=== PATIENT | female | born 1950 | race Caucasian/White ===

== ENCOUNTER → 2016-10-30 | Outpatient (CLI) | payer BC ==
[~2016-10-30] MED LIST: ALBUAER19 INH; ASCA500 PO; B-CO1CAP3 PO; BECL1AER5; CALC1TAB9 PO; CALC500T25 PO; CATAPLEX PO; CETI10TA10 PO; DIGE1CAP10 PO; MAGN250T8 PO; MISCCAP80 PO; NUTR50CA PO; PTDOPS OPB; SELE1TAB10 PO; SPEC1TAB PO; TBRDOPO OPR; VTMD400 PO; [UNRECOGNIZED DRUG - OTHER] PO; [UNRECOGNIZED DRUG - OTHER] PO; [UNRECOGNIZED DRUG - OTHER] PO
== END | disposition home or self-care (01) ==
LOC: C.PAPS 08:06
PROVIDERS: ATTEND Obstetrics & Gynecology
DX: N95.8 Other specified menopausal and perimenopausal disorders (principal); Z01.419 Encounter for gynecological examination (general) (routine) without abnormal findings

== ENCOUNTER → 2017-03-10 | Outpatient (CLI) | payer BC ==
--- NOTE | 2017-03-11 02:49 | PAP/PSG TECHNICIAN REPORT ---
[facility] Cardiac Nurse Specialist Polysomnogram Report Study name: None Report date: 03/11/2017 Study date: 03/10/2017 Referring Physician: Heather Castro DO Name: FRANKLYN TIWARI Interpreting Physician: Abdullahi Peters M.D. Date of : 1950 Cardiac Nurse Specialist: Mara Salvador [facility]. Sex: Female Age: 66 StudyType: PSG Weight: 187 lbs Height: 66 years, Height 5' 9" Neck Circum: BMI: 27.61 Medications: Vagifem, [place] Thyroid, Citracal/Vitamin D, Vitamin B-12, Vitamin B Patient History 66 yr. old female here for a new titration sleep study. Patient had a HST. Parameters Monitored NPSG: E1-M2, E2-M1, Fp1-M2, Fp2-M1, F3-M2, F4-M2, F4-M1, C3-M2, C4-M2, C4-M1, O1-M2, O2-M2, O2-M1, T3-M2, T4-M1, P3-M2, P4-M1, CHIN1, CHIN2, HR, EKG, Legs, PFLOW, SNOR, FLOW, CFLOW, Tidal Volume, THOR, ABDO, SpO2, PLTH, CPRESS, ETCO2 Wave, ETCO2, pH Sleep Architecture Sleep Stages Time at Lights Off 10:42:21 PM STAGES Time (min.) TST (%) Time at Lights On 2:47:21 AM Wake 77.0 -- Total Recording Time (TRT) 244.50 min. N1 22.5 13 Total Sleep Period (TSP) 230.5 min. N2 82.0 49 Total Sleep Time (TST) 167.5min. N3 42.0 25 Awake Time 77.0 min. REM 21.0 13 Wake after Sleep Onset 63.5 min. Sleep Efficiency (SE) 69 % Sleep Onset Latency (DAMARI) 14.0 min. Number of Stage 1 Shifts None Awakenings 6 Stage Changes 35 Number of REM periods 1 REM 21.0 13 REM Latency 104.5 min. NREM 146.5 87 Body Position Analysis Supine Right Left Side Prone Vertical Total Sleep Time (min.) 0.0 120.0 47.5 167.50 0.0 0.0 Total Sleep Time (%) 0% 72% 28% 100 0% N/A% Total Sleep Time REM (min.) 0.0 21.0 0.0 None 0.0 0.0 Total Sleep Time NREM (min.) 0.0 99.0 47.5 None 0.0 0.0 Intermittent Wake (min.) 0.0 41.8 35.2 None 0.0 0.0 Total Sleep Period (%) 0% None None None None None Arousals Myoclonus (PLM) * Events Count Index Events Count Index Spontaneous 6 2 Events Awake (PLMW) 83 64.7 Respiratory 0 0.0 Events Asleep w/ Arousal (PLMA) 3 1.1 PLM 2 1 Events Asleep w/o Arousal (PLMS) 6 2.1 Snoring 0 0 Total Asleep 9 3.2 Total 8 3 Total 92 23 Respiratory Analysis * CA OA MA CH H RERA Total Count 0 0 0 0 5 0 5 Index 0.0 0.0 0.0 0 1.8 0 1.8 Mean Duration 0.0 0.0 0.0 0.00 40.5 0.0 40.5 Longest Duration 0.0 0.0 0.0 0.00 0.0 0.0 55.7 Respiratory Event Summary Total Supine ~Supine Right Left Prone REM NREM Apneas Count 0 N/A 0 0 0 N/A 0 0 Index 0.0 N/A 0 0.0 0.0 N/A 0 0 Hypopneas (4% Desat) Count 5 N/A 5 4 1 N/A 3 2 Index 1.8 N/A 2 2.0 1.3 N/A 8.6 0.8 Apneas & All Hypopneas Count 5 N/A 5 4 1 N/A 3 2 Index 1.8 N/A 2 2 1 N/A 8.6 0.8 Respiratory Events (Centrifugal Supervisor+All Hyp+RERA) Count 5 N/A 5 4 1 N/A 3 2 Index 1.8 N/A 2 2.0 1.3 N/A 8.6 0.8 Respiratory Related Arousal Count 0 N/A 0 0 0 N/A 0 0 Index 0.0 N/A 0 0 0 N/A 0 0 Snoring Analysis Supine Right Left Prone REM NREM Total Snore duration 0.1 min Snores count N/A 3 0 N/A 1 2 3 Snore mean duration 1.8 Sec Snores index N/A 2 0 N/A 2.9 0.8 1.1 TST with snoring (%) 0.1% Desaturation Event Summary: Minimum %SpO2 Event Count Mean/Min/Max Duration(sec.) Desaturation Index % Time In Bed > 90 7 37.0 / 22.8 / 50.0 2.6 67.7 86 - 90 2 41.0 / 32.0 / 50.0 1.6 32.2 81 - 85 0 N/A 0.0 0.0 76 - 80 0 N/A 0.0 0.0 71 - 75 0 N/A 0.0 0.0 66 - 70 0 N/A 0.0 0.0 61 - 65 0 N/A 0.0 0.1 56 - 60 0 N/A 0.0 0.0 51 - 55 0 N/A 0.0 0.0 < 50 0 N/A 0.0 0.0 Total REM NREM Awake <50% 0.0 min. 0.0 min. 0.0 min. 0.0 min. 51 - 60% 0.0 min. 0.0 min. 0.0 min. 0.0 min. 61 - 70% 0.2 min. 0.0 min. 0.0 min. 0.2 min. 71 - 80% 0.0 min. 0.0 min. 0.0 min. 0.0 min. 81 - 90% 76.9 min. 11.0 min. 58.8 min. 7.1 min. 91 - 100% 161.8 min. 10.0 min. 87.2 min. 64.5 min. Average 91 91 91 92 Minimum SpO2 62 87 88 62 Desaturation Event Index 1.7 11.4 0.8 0.8 # Desat. Events below 89% 2 2 N/A 0 Time(%) with Saturation below 89% 1.2 0.8 0.2 0.2 Time(min.) with Saturation below 89% 2.9 2.0 0.5 0.4 Time (mins) REM (mins) NREM (mins) % of TST SpO2 Below 90% 5 4 N1 11.3 SpO2 Below 88% 1 0 0 0 Heart Rate Analysis Min (bpm) Max (bpm) Average (bpm) Awake 57 86 70 NREM 55 93 66 REM 60 75 70 Overall 55 93 66 Supplemental O2 Values Minimum O2 level: None Value Start Time End Time Cardiac Nurse Specialist Comments Therapy Event: Therapy (cm H20) 4 5 Total Time at Pressure (min.) 135.4 109.1 TST at Pressure (min.) 109.4 58.1 # Periods 1 1 Sleep Onset (min.) 14.0 0.0 REM Onset (min.) 118.5 0.0 Sleep Efficiency % 80 53 Wakefulness (%) 19.2 46.8 Wakefulness (min.) 26.0 51.0 NREM 1 (%) 9.2 9.2 NREM 1 (min.) 12.5 10.0 NREM 2 (%) 34.0 33.0 NREM 2 (min.) 46.0 36.0 NREM 3 (%) 25.1 7.3 NREM 3 (min.) 34.0 8.0 REM (%) 12.5 3.7 REM (min.) 16.9 4.1 # Arousals 7 1 Arousal Index 3.8 1.0 # Snore 1 2 Snore Index 0.5 2.1 AHI 2.2 1.0 AHI Supine N/A N/A AHI Non-Supine 2.2 1.0 NREM AHI 0.6 1.1 REM AHI 10.6 0.0 RDI 2.2 1.0 # Obstructive 0 0 # Central Ap 0 0 # Mixed 0 0 # Hypopneas 4 1 RERAS 0 0 Total Respiratory Events 4 1 Time Below SpO2 89.00% (min.) 2.0 0.5 Mean NREM SpO2 (%) 91 90 Mean REM SpO2 (%) 90 93 Mean Sleep SpO2 (%) 91 91 Min NREM SpO2 (%) 89 88 Min REM SpO2 (%) 87 90 Position Supine (min.) 0.0 0.0 Position Non-supine (min.) 109.4 58.1 LM Index Sleep 3.3 3.1 LM Index NREM 3.9 2.2 LM Index REM 0.0 14.7 Mean Heart Rate (bpm) 70 60 Min Heart Rate (bpm) 60 55
--- NOTE | 2017-03-11 06:30 | PAP/PSG TECHNICIAN REPORT ---
[facility] Outside Barrel Lathe Operator Polysomnogram Report Study name: None Report date: 03/11/2017 Study date: 03/10/2017 Referring Physician: Heather Castro DO Name: FRANKLYN ANTHONY Interpreting Physician: Venkata Pope M.D. Date of : 1950 Outside Barrel Lathe Operator: ELVIN Portillo. Sex: Female Age: 66 StudyType: PSG Weight: 187 lbs Height: 66 years, Height 5' 9" Neck Circum: BMI: 27.61 Medications: Vagifem, [place] Thyroid, Citracal/Vitamin D, Vitamin B-12, Vitamin B Patient History 66 yr. old female here for a new titration sleep study. Patient had a HST. Results are not available at this time. Patient has a follow up with Dr. Pope March 25, 2017. Parameters Monitored NPSG: E1-M2, E2-M1, Fp1-M2, Fp2-M1, F3-M2, F4-M2, F4-M1, C3-M2, C4-M2, C4-M1, O1-M2, O2-M2, O2-M1, T3-M2, T4-M1, P3-M2, P4-M1, CHIN1, CHIN2, HR, EKG, Legs, PFLOW, SNOR, FLOW, CFLOW, Tidal Volume, THOR, ABDO, SpO2, PLTH, CPRESS, ETCO2 Wave, ETCO2, pH Sleep Architecture Sleep Stages Time at Lights Off 10:42:21 PM STAGES Time (min.) TST (%) Time at Lights On 5:59:21 AM Wake 115.0 -- Total Recording Time (TRT) 436.00 min. N1 48.0 15 Total Sleep Period (TSP) 422.0 min. N2 174.5 54 Total Sleep Time (TST) 321.0min. N3 46.5 14 Awake Time 115.0 min. REM 52.0 16 Wake after Sleep Onset 102.0 min. Sleep Efficiency (SE) 74 % Sleep Onset Latency (DAMARI) 14.0 min. Number of Stage 1 Shifts None Awakenings 12 Stage Changes 53 Number of REM periods 2 REM 52.0 16 REM Latency 104.5 min. NREM 269.0 84 Body Position Analysis Supine Right Left Side Prone Vertical Total Sleep Time (min.) 0.0 175.5 145.5 321.00 0.0 0.0 Total Sleep Time (%) 0% 55% 45% 100 0% N/A% Total Sleep Time REM (min.) 0.0 21.0 31.0 None 0.0 0.0 Total Sleep Time NREM (min.) 0.0 154.5 114.5 None 0.0 0.0 Intermittent Wake (min.) 0.0 55.5 59.5 None 0.0 0.0 Total Sleep Period (%) 0% None None None None None Arousals Myoclonus (PLM) * Events Count Index Events Count Index Spontaneous 7 1 Events Awake (PLMW) 126 65.7 Respiratory 0 0.0 Events Asleep w/ Arousal (PLMA) 5 0.9 PLM 4 1 Events Asleep w/o Arousal (PLMS) 8 1.5 Snoring 1 0 Total Asleep 13 2.4 Total 12 2 Total 139 19 Respiratory Analysis * CA OA MA CH H RERA Total Count 0 0 0 0 9 0 9 Index 0.0 0.0 0.0 0 1.7 0 1.7 Mean Duration 0.0 0.0 0.0 0.00 41.7 0.0 41.7 Longest Duration 0.0 0.0 0.0 0.00 0.0 0.0 55.7 Respiratory Event Summary Total Supine ~Supine Right Left Prone REM NREM Apneas Count 0 N/A 0 0 0 N/A 0 0 Index 0.0 N/A 0 0.0 0.0 N/A 0 0 Hypopneas (4% Desat) Count 9 N/A 9 7 2 N/A 4 5 Index 1.7 N/A 2 2.4 0.8 N/A 4.6 1.1 Apneas & All Hypopneas Count 9 N/A 9 7 2 N/A 4 5 Index 1.7 N/A 2 2 1 N/A 4.6 1.1 Respiratory Events (Impression Printer+All Hyp+RERA) Count 9 N/A 9 7 2 N/A 4 5 Index 1.7 N/A 2 2.4 0.8 N/A 4.6 1.1 Respiratory Related Arousal Count 0 N/A 0 0 0 N/A 0 0 Index 0.0 N/A 0 0 0 N/A 0 0 Snoring Analysis Supine Right Left Prone REM NREM Total Snore duration 0.4 min Snores count N/A 4 4 N/A 3 5 8 Snore mean duration 3.3 Sec Snores index N/A 1 2 N/A 3.5 1.1 1.5 TST with snoring (%) 0.1% Desaturation Event Summary: Minimum %SpO2 Event Count Mean/Min/Max Duration(sec.) Desaturation Index % Time In Bed > 90 15 43.3 / 21.3 / 60.0 3.5 60.8 86 - 90 2 41.0 / 32.0 / 50.0 0.7 39.0 81 - 85 0 N/A 0.0 0.0 76 - 80 0 N/A 0.0 0.0 71 - 75 0 N/A 0.0 0.0 66 - 70 0 N/A 0.0 0.0 61 - 65 0 N/A 0.0 0.0 56 - 60 0 N/A 0.0 0.0 51 - 55 0 N/A 0.0 0.0 < 50 0 N/A 0.0 0.0 Total REM NREM Awake <50% 0.0 min. 0.0 min. 0.0 min. 0.0 min. 51 - 60% 0.0 min. 0.0 min. 0.0 min. 0.0 min. 61 - 70% 0.2 min. 0.0 min. 0.0 min. 0.2 min. 71 - 80% 0.1 min. 0.0 min. 0.0 min. 0.1 min. 81 - 90% 165.5 min. 22.8 min. 129.8 min. 12.9 min. 91 - 100% 257.6 min. 29.2 min. 139.2 min. 89.3 min. Average 91 91 91 92 Minimum SpO2 62 87 88 62 Desaturation Event Index 2.1 8.1 1.3 1.6 # Desat. Events below 89% 4 2 2 0 Time(%) with Saturation below 89% 1.5 0.8 0.5 0.2 Time(min.) with Saturation below 89% 6.2 3.2 1.9 1.0 Time (mins) REM (mins) NREM (mins) % of TST SpO2 Below 90% 11 6 N5 13.1 SpO2 Below 88% 3 0 0 0 Heart Rate Analysis Min (bpm) Max (bpm) Average (bpm) Awake 55 214 70 NREM 54 93 63 REM 54 81 64 Overall 54 93 63 Supplemental O2 Values Minimum O2 level: None Value Start Time End Time Outside Barrel Lathe Operator Comments MS. Anthony slept in the right and left positions. No cardiac arrhythmia or PLMs noted. No bruxism noted. CPAP was initiated at +4 CMH2O room air and up-titrated to an optimal level of +6 CMH2O Cflex 2 , which nearly eliminated all respiratory events and snoring. A Medium Eson 2 by Lior was used during titration. MS. Anthony awoke to use the restroom two times by during the night. MS. Anthony stated, I am glad I brought my own pillows, or I really would not have slept. The final report will be interpreted and signed by a sleep physician. The completed physician report will then be placed in the patient medical record. Therapy Event: Therapy (cm H20) 4 5 6 Total Time at Pressure (min.) 135.4 275.1 25.5 TST at Pressure (min.) 109.4 187.1 24.5 # Periods 1 1 1 Sleep Onset (min.) 14.0 0.0 0.0 REM Onset (min.) 118.5 0.0 N/A Sleep Efficiency % 80 68 96 Wakefulness (%) 19.2 32.0 3.9 Wakefulness (min.) 26.0 88.0 1.0 NREM 1 (%) 9.2 12.2 7.8 NREM 1 (min.) 12.5 33.5 2.0 NREM 2 (%) 34.0 38.5 88.2 NREM 2 (min.) 46.0 106.0 22.5 NREM 3 (%) 25.1 4.5 0.0 NREM 3 (min.) 34.0 12.5 0.0 REM (%) 12.5 12.8 0.0 REM (min.) 16.9 35.1 0.0 # Arousals 7 5 0 Arousal Index 3.8 1.6 0.0 # Snore 1 6 1 Snore Index 0.5 1.9 2.4 AHI 2.2 1.6 0.0 AHI Supine N/A N/A N/A AHI Non-Supine 2.2 1.6 0.0 NREM AHI 0.6 1.6 0.0 REM AHI 10.6 1.7 N/A RDI 2.2 1.6 0.0 # Obstructive 0 0 0 # Central Ap 0 0 0 # Mixed 0 0 0 # Hypopneas 4 5 0 RERAS 0 0 0 Total Respiratory Events 4 5 0 Time Below SpO2 89.00% (min.) 2.0 2.7 0.5 Mean NREM SpO2 (%) 91 90 90 Mean REM SpO2 (%) 90 91 N/A Mean Sleep SpO2 (%) 91 91 90 Min NREM SpO2 (%) 89 88 88 Min REM SpO2 (%) 87 88 N/A Position Supine (min.) 0.0 0.0 0.0 Position Non-supine (min.) 109.4 187.1 24.5 LM Index Sleep 3.3 2.2 0.0 LM Index NREM 3.9 1.2 0.0 LM Index REM 0.0 6.8 N/A Mean Heart Rate (bpm) 70 59 62 Min Heart Rate (bpm) 60 54 58
--- NOTE | 2017-04-04 10:15 | POLYSOMNOGRAPH REPORT ---
REFERRING PERSON: Dr. Heather Castro. INTERPRETING PHYSICIAN: Dr. Jose Pope. SURFACE LAY OUT TECHNICIAN: Mara Salvador. Ms. Anthony is a 66-year-old female sent for CPAP titration study. She had a previous home sleep test which showed obstructive sleep apnea. She is sent to the lab for a titration study to determine her pressure needs. [place] sleepiness scale score on the evening of this study is not recorded. BMI is 27.61. Following the technical and digital specifications of the [place] [employer] (AASM) a standard diagnostic polysomnogram was performed monitoring EEG, EOG, EMG (chin and leg deviations), oxygen saturation, body position, digital video, respiratory effort and airflow. The sleep Stage and event scoring was based on the AASM Manual for the Scoring of Sleep and Associated Events 2007 edition. Apneas are defined as a drop in the peak thermal sensor excursion by >90% of baseline for at least 10 seconds. Hypopneas were scored using the 4% oxygen desaturation rule (4A-[employer]ic[employer]) and a decrease in the nasal pressure excursions by >30% of baseline for at least 10 seconds. Respiratory effort-related arousal (RERA's) is defined as a sequence of breaths lasting at least 10 seconds characterized by increasing respiratory effort or flattening of the nasal pressure waveform leading to an arousal from sleep when the sequence of breaths does not meet criteria for an apnea or hypopnea. Apnea Hypopnea index (AHI) is defined as the number of apneas and hypopneas occurring in an hour of sleep. Respiratory disturbance index (RDI) is defined as the number of apneas, hypopneas, and RERA's occurring in an hour of sleep. Ms. Anthony's total sleep period time was 422 minutes. Total sleep time was 321 minutes. Sleep efficiency was 74%. Latency to sleep onset was 14 minutes with wake after sleep onset of 102 minutes. Total non-REM sleep time was 269 minutes. She spent 15% of that time in N1 sleep, 54% in N2 sleep and 14% in N3 sleep. REM latency was 104.5 minutes. Total REM sleep time was 52 minutes or 16% of total sleep time. There were 12 cortical arousals from sleep. Seven of these arousals were spontaneous, 4 were due to periodic limb movements of sleep and 1 was due to snoring. There were 13 periodic limb movements noted on this test. Limb movement index was 2.4. Limb movement with arousal index was 0.9. There were no central, obstructive or mixed apneas on this test. There were 9 hypopnea and no RERA. Apnea-hypopnea index on this titration was normal at 1.7. There were 8 snoring events. Total sleep time with snoring was 0.1%. Mean saturation was 91%. Saturations were below 89% for 6.2 minutes of recorded time. There was no cardiac ectopy noted on this study. Heart rates ranged from a low of 54 beats per minute to a high of 93 beats per minute during sleep. As stated above, this was a CPAP titration study. She chose a medium Eson 2 [place] and Paykel nasal mask for the titration. She was titrated from a CPAP pressure of 4 to a CPAP pressure of 6 over the course of the night. She was observed on a pressure of 5 for 187.1 minutes. There was no supine REM, but was non-supine REM sleep on this pressure. AHI and RDI on this pressure were both 1.6 with saturations less than 89 for 2.7 minutes of recorded time. For the last 24.5 minutes of sleep, this patient was moved to a pressure of 6. Her AHI and RDI on this pressure were both 0. Saturations were less than 89 for 0.5 minutes of recorded time. IMPRESSION AND PLAN: A 66-year-old female, who on previous home sleep testing showed sleep apnea who does well on CPAP at a pressure of 5 or 6. 1. I would recommend given that there was no supine REM sleep on a pressure of 5, this patient on a CPAP at 6. A download from her machine can be reviewed in 1 month both to check compliance as well as AHI and further pressure adjustments can occur at that time.
== END | disposition home or self-care (01) ==
LOC: C.NEUR 20:00
PROVIDERS: ATTEND Family Medicine
DX: G47.30 Sleep apnea, unspecified (principal)

== ENCOUNTER → 2017-10-16 | Outpatient (CLI) | payer BC ==
[2017-10-16 13:13] LABS: BASO % 0.3 %; BASO ABS # 0.02 K/uL (0-0.2); COMPLETE YES; HEMATOCRIT 45.5 % (37-47); IG% 0.2 %; LYMPH % 26.7 %; LYMPH ABS # 1.64 K/uL (1.2-3.4); MEAN CORPUSCULAR HEMOGLOBIN 32.4 pg (25-34); MEAN CORPUSCULAR HGB CONC 34.1 g/dl (32-36); MEAN PLATELET VOLUME 12.3 fL (7.4-10.4); MONO % 9.1 %; NEUT % 61.7 %; PLATELET COUNT 191 K/uL (130-400); RED BLOOD COUNT 4.79 M/uL (4.2-5.4); WHITE BLOOD COUNT 6.15 K/uL (4.8-10.8)
[2017-10-16 13:53] LABS: ESTIMATED AVERAGE GLUCOSE 114 mg/dl; HA1C FLAG Normal (Normal)
[2017-10-16 13:59] LABS: ALB/GLOB RATIO 1.1 (0.9-2); ALKALINE PHOSPHATASE 53 U/L (45-117); ALT/SGPT 33 U/L (12-78); AST/SGOT 19 U/L (15-37); BLOOD UREA NITROGEN 19 mg/dl (7-18); BUN/CREATININE RATIO 18.7 (10-20); CARBON DIOXIDE 28 mmol/L (21-32); CHLORIDE 106 mmol/L (98-107); CREATININE 1.01 mg/dl (0.60-1.20); GLUCOSE 88 mg/dl (70-99); SODIUM 140 mmol/L (136-145)
== END | disposition home or self-care (01) ==
LOC: C.LABBC 10:11
PROVIDERS: ATTEND Family Medicine
DX: E03.9 Hypothyroidism, unspecified (principal); D51.0 Vitamin B12 deficiency anemia due to intrinsic factor deficiency; E16.2 Hypoglycemia, unspecified

== ENCOUNTER → 2017-11-05 | Outpatient (CLI) | payer OTHER | END | disposition home or self-care (01) | LOC: C.PAPS 13:52 | PROVIDERS: ATTEND Obstetrics & Gynecology | DX: Z12.4 Encounter for screening for malignant neoplasm of cervix (principal) ==

== ENCOUNTER → 2018-02-18 | Outpatient (CLI) | payer OTHER | END | disposition home or self-care (01) | LOC: C.LABBC 09:53 | DX: J30.9 Allergic rhinitis, unspecified (principal); D51.0 Vitamin B12 deficiency anemia due to intrinsic factor deficiency ==

== ENCOUNTER 2020-09-25 14:12 | Observation (INO) ==
--- NOTE | 2020-09-25 14:49 | Emergency Department Note ---
Impression & Plan Acute appendicitis with localized peritonitis, Abdominal pain, RLQ ED Provider Note INFORMANT: Patient ED PROVIDER(S): Abdullahi Matta MD CHIEF COMPLAINT: Right lower quadrant abdominal pain PLAN: Disposition: Admitted to the OR for intervention Condition: Good MEDICAL DECISION MAKING: Patient presented with acute right lower quadrant abdominal pain. Blood work was obtained. She declined analgesia. She was made NPO. The patient had a leukocytosis on CBC. Chemistry panel was unremarkable. The patient underwent C T imaging which revealed acute appendicitis. Patient was started on IV Cipro and Flagyl. She again declined analgesia. The patient had a consult placed with Dr. Diaz of general surgery. He evaluated her in the ER and will take her to the operative suite for intervention. Triage Nursing notes reviewed and agree them. Vital Signs: reviewed and remarkable for borderline fever Differential diagnosis: Appendicitis, ovarian cyst, ovarian torsion, ectopic , TOA, PID, infections, diverticulitis, UTI, obstruction, mesenteric ischemia, aortic pathology, inflammatory bowel disease, renal colic, PUD, pancreatitis, biliary pathology, hernia, volvulus, constipation, as well as other pathologies. Diagnostics interpreted by me: Cardiac Monitoring: Cardiac monitoring ordered by me: The patient was placed on continuous cardiac monitoring and observed. It revealed a normal sinus rhythm a t 91 beats per minute without ectopy or evidence of dysrhythmia. Imaging studies: CAT scan as above. Appendicitis. Consultation(s): General surgery HPI: The patient is a 70 year old female who presents to the Emergency Room with complaints of right lower quadrant abdominal pain. This started last and is worsening. The patient also notes the following associated symptoms, pain with palpation and movement, very slight nausea. The patient has found no relieving factors. Current pain is rated as 6/10. Patient still has her appendix. No history of abdominal surgeries. Pt denies LOC, headache, fevers, chills, lit phoresis, visual changes, neck pain, chest pain, breathing difficulties, vomiting, back pain, melena, hematochezia, urinary symptoms, numbness, weakness, lymphadenopathy, rash, or other complaints. ROS: See above HPI for pertinent positives & negatives. A total of 10 systems reviewed and were otherwise negative. PAST MEDICAL HISTORY:See Below, hypothyroidism PAST SURGICAL HISTORY:See Below, FAMILY HISTORY:See Below SOCIAL HISTORY:See Below, tonsillectomy HOME MEDICATIONS:See Below ALLERGIES:See Below VITALS:See Below PHYSICAL EXAMINATION: GENERAL: Awake, alert, well-appearing, in no distress HENT: Normocephalic, atraumatic. Oropharynx unremarkable. EYES: Normal conjunctiva. Sclera non-icteric. NECK: Inspection normal. Non-tender. Supple. No nuchal rigidity. FROM. No masses. RESPIRATORY: Clear to auscultation. No wheezes. No rales. Normal respiratory effort. CARDIAC: Normal rate. Normal rhythm. No murmurs. No rubs. Extremities warm and well perfused. Pulses equal. No JVD. GI: Soft, non-distended. Right lower quad tenderness to palpation. Mild rebound and guarding. No masses. RECTAL: Deferred. MUSCULOSKELETAL: Atraumatic. Chest examination reveals no tenderness. The back is symmetrical on inspection without obvious abnormality. There is no CVA tenderness to palpation. No joint edema. LOWER EXTREMITIES: Calves are equal size bilaterally and non-tender. No edema. No discoloration. NEURO: Normal sensorium. No sensory or motor deficits noted. SKIN: No rash or jaundice noted. Abdullahi Matta MD Past Med/Surg History Medical History (Updated 09/25/20 @ 18:39 by Abdullahi Matta MD) Ascending aorta dilatation Bilateral leg edema Bronchospasm Dermatochalasis Dysplastic nevus Gluten enteropathy Yehuda's thyroiditis History of basal cell carcinoma History of cold sores Hypoglycemia Left hip pain Mitral regurgitation Pernicious anemia Prolapse of female pelvic organs Severe obstructive sleep apnea Tubular adenoma of colon Surgical History History of blepharoplasty History of oral surgery tooth extraction History of tonsillectomy Status post excisional biopsy skin cancer-2013 Family History Father Alcoholism Brain tumor Environmental allergies Hypertension Mother Dementia Skin cancer Family history of deafness and hearing loss Mitral valve prolapse Other No family history of bleeding disorder Denies family history of Ovarian cancer Prostate cancer Myocardial infarction Breast cancer Colorectal cancer Social History Smoking Status: Never smoker Do You Dip or Chew Tobacco: No; Hx Alcohol Use: No Hx Substance Use: No Preferred Language: Lithuanian Communication Ability: Effective Visual Impairment: No Limitations Hearing Ability: Normal Durable Medical Equipment Repairer Required: No marital status: marital status details: x 2 Current Living Situation: Alone current occupational status: retired 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 Feels Safe at Home: Yes Childhood Exposure to Second-Hand Smoke: Yes caffeine: No Dental Care, Regularly: Yes Physical Activity Frequency: 3-4 Times per Week Seatbelt Use: always Sunscreen Use: Yes Allergies Allergies Allergy/AdvReac Type Severity Reaction Status Date / Time clavulanic acid Allergy Mild Verified 09/25/20 13:18 corn Allergy Mild DIARRHEA Verified 09/25/20 13:18 nitrofurantoin Allergy Mild Verified 09/25/20 13:18 Penicillins Allergy Mild Verified 09/25/20 13:18 Sulfa (Sulfonamide Allergy Mild UNKNOWN Verified 09/25/20 13:18 Antibiotics) gluten Allergy Unknown GI UPSET Verified 09/25/20 13:18 milk Allergy Unknown . Verified 09/25/20 13:18 soy Allergy Unknown . Verified 09/25/20 13:18 adhesive tape Allergy Verified 09/25/20 13:18 amoxicillin Allergy Verified 09/25/20 13:18 apple Allergy Verified 09/25/20 13:18 cat dander Allergy Verified 09/25/20 13:18 dog dander Allergy Verified 09/25/20 13:18 grass pollen Allergy Verified 09/25/20 13:18 house dust mite Allergy Verified 09/25/20 13:18 lactase [From Dairy Aid] Allergy Verified 09/25/20 13:18 latex Allergy Verified 09/25/20 13:18 mold Allergy Verified 09/25/20 13:18 pneumococcal vaccine Allergy Verified 09/25/20 13:18 [From Pneumovax 23] pollen extracts Allergy Verified 09/25/20 13:18 ragweed pollen Allergy Verified 09/25/20 13:18 tree and shrub pollen Allergy Verified 09/25/20 13:18 Home Meds Home Medications Medication Instructions Recorded Confirmed cyclosporine 0.05 % eye drops in a 1 drp OPB AMHS ea 04/06/19 09/25/20 dropperette calcium citrate 315 mg 1 tab PO BID 05/13/19 09/25/20 calcium-vitamin D3 6.25 mcg (250 unit) tablet cyanocobalamin (vitamin B-12) 100 100 mcg PO DAILY tab 05/13/19 09/25/20 mcg tablet epinephrine 0.3 mg/0.3 mL 0.3 mg IM ONCE PRN #1 ea 05/13/19 09/25/20 injection, auto-injector organ concentrates 80 mg capsule 0 mg PO UD cap 05/13/19 09/25/20 tretinoin 0.1 % topical cream 1 appln TOPICAL .QHS #1 gm 05/13/19 09/25/20 vitamin B complex 1 tab PO DAILY 05/13/19 09/25/20 Allergy Drops 0 drp SUBCUT .DAILY UD 09/25/20 09/25/20 olopatadine [Pazeo] 1 drp OPB DAILY PRN 09/25/20 09/25/20 Previous Rx's Medication Instructions Recorded Proventil HFA 90 mcg/actuation 2 puffs INHALATION Q6H PRN #6.7 gm 01/03/20 aerosol inhaler NS thyroid (pork) 60 mg tablet 60 mg PO DAILY #90 tab 02/15/20 estradiol 10 mcg vaginal tablet 10 mcg PV 2XWK #24 tab 05/22/20 Results & Data (ED) Vital Signs Vital Signs - 24 hr 09/25/20 14:22 09/25/20 14:27 09/25/20 17:36 Temperature 37.6 C H Temperature Source Oral Pulse Rate 98 H Pulse Rate [Right Finger] 91 H Respiratory Rate 18 20 Respiratory Effort / Characteristics Non-Labored Spontaneous Respiratory Depth Normal Blood Pressure 136/85 Blood Pressure [Left Arm] 132/105 H Blood Pressure Mean 102 Blood Pressure Mean [Left Arm] 114 Blood Pressure Position Lying Pulse Oximetry 95 95 Oxygen Delivery Method Room Air Room Air Room Air Sepsis Recent Fever Within 48 Hours No Sepsis New/Unexplained Change in Mental Status No Sepsis Action Taken by Nursing No Action Required 09/25/20 18:36 Temperature Temperature Source Pulse Rate 91 H Pulse Rate [Right Finger] Respiratory Rate 20 Respiratory Effort / Characteristics Respiratory Depth Blood Pressure 160/85 H Blood Pressure [Left Arm] Blood Pressure Mean 110 Blood Pressure Mean [Left Arm] Blood Pressure Position Pulse Oximetry 95 Oxygen Delivery Method Room Air Sepsis Recent Fever Within 48 Hours Sepsis New/Unexplained Change in Mental Status Sepsis Action Taken by Nursing Laboratory Data Result diagrams: 09/25/20 16:26 09/25/20 16:26 Lab Results 11/30/20 11/30/20 11/30/20 Range/Units 16:00 16:26 16:26 WBC 14.13 H (4.8-10.8) K/uL RBC 5.00 (4.2-5.4) M/uL Hgb 15.9 (12.0-16.0) g/dL Hct 46.4 (37-47) % MCV 92.8 (80-100) fL MCH 31.8 (25-34) pg MCHC 34.3 (32-36) g/dL RDW Std Deviation 43.2 (36.4-46.3) fL RDW Coeff of Matilde 12.7 (11.5-14.5) % Plt Count 169 (130-400) K/uL MPV 11.3 H (7.4-10.4) fL Immature Gran % (Auto) 0.3 % Neut % (Auto) 84.3 % Lymph % (Auto) 7.0 % [place] % (Auto) 8.3 % Eos % (Auto) 0.0 % Baso % (Auto) 0.1 % Neut # (Auto) 11.92 H (1.4-6.5) K/uL Lymph # (Auto) 0.99 L (1.2-3.4) K/uL [place] # (Auto) 1.17 H (0.11-0.59) K/uL Eos # (Auto) 0.00 (0-0.5) K/uL Baso # (Auto) 0.01 (0-0.2) K/uL Immature Gran # (Auto) 0.04 H (0.00-0.02) K/uL Sodium 136 (136-145) mmol/L Potassium 3.4 L (3.5-5.1) mmol/L Chloride 105 (98-107) mmol/L Carbon Dioxide 26 (21-32) mmol/L Anion Gap 5.0 (3-11) BUN 27 H (7-18) mg/dl Creatinine 0.84 (0.6-1.2) mg/dl Est Cr Clr Drug Dosing 75.0 ml/min Est GFR ( Amer) 81.6 Est GFR (Non-Af Amer) 70.4 BUN/Creatinine Ratio 31.8 H (10-20) Glucose 114 H (70-99) mg/dl Calcium 9.1 (8.5-10.1) mg/dl Total Bilirubin 0.7 (0.2-1) mg/dl AST 11 L (15-37) U/L ALT 28 (12-78) U/L Alkaline Phosphatase 57 (45-117) U/L Total Protein 7.5 (6.4-8.2) gm/dl Albumin 3.7 (3.4-5.0) gm/dl Globulin 3.8 (2.5-4.0) gm/dl Albumin/Globulin Ratio 1.0 (0.9-2) Lipase 147 (73-393) U/L Urine Color Yellow Urine Appearance Cloudy A (Clear) Urine pH 6.5 (4.5-7.5) Ur Specific [place] 1.012 (1.000-1.030) Urine Protein Negative (Negative) Urine Glucose (UA) Negative (Negative) Urine Ketones Negative (Negative) Urine Blood Negative (Negative) Urine Nitrite Negative (Negative) Urine Bilirubin Negative (Negative) Urine Urobilinogen Negative (Negative) Ur Leukocyte Esterase Negative (Negative) Urine WBC (Auto) 1-5 (0-5) /hpf Urine RBC (Auto) 0-4 (0-4) /hpf U Hyaline Cast (Auto) 0 (0-5) /lpf U Epithel Cells (Auto) 10-20 H (0-5) /lpf Urine Bacteria (Auto) 4+ H (Negative) COVID-19 Eval Order 09/25/20 Range/Units 18:10 WBC (4.8-10.8) K/uL RBC (4.2-5.4) M/uL Hgb (12.0-16.0) g/dL Hct (37-47) % MCV (80-100) fL MCH (25-34) pg MCHC (32-36) g/dL RDW Std Deviation (36.4-46.3) fL RDW Coeff of Matilde (11.5-14.5) % Plt Count (130-400) K/uL MPV (7.4-10.4) fL Immature Gran % (Auto) % Neut % (Auto) % Lymph % (Auto) % [place] % (Auto) % Eos % (Auto) % Baso % (Auto) % Neut # (Auto) (1.4-6.5) K/uL Lymph # (Auto) (1.2-3.4) K/uL [place] # (Auto) (0.11-0.59) K/uL Eos # (Auto) (0-0.5) K/uL Baso # (Auto) (0-0.2) K/uL Immature Gran # (Auto) (0.00-0.02) K/uL Sodium (136-145) mmol/L Potassium (3.5-5.1) mmol/L Chloride (98-107) mmol/L Carbon Dioxide (21-32) mmol/L Anion Gap (3-11) BUN (7-18) mg/dl Creatinine (0.6-1.2) mg/dl Est Cr Clr Drug Dosing ml/min Est GFR ( Amer) Est GFR (Non-Af Amer) BUN/Creatinine Ratio (10-20) Glucose (70-99) mg/dl Calcium (8.5-10.1) mg/dl Total Bilirubin (0.2-1) mg/dl AST (15-37) U/L ALT (12-78) U/L Alkaline Phosphatase (45-117) U/L Total Protein (6.4-8.2) gm/dl Albumin (3.4-5.0) gm/dl Globulin (2.5-4.0) gm/dl Albumin/Globulin Ratio (0.9-2) Lipase (73-393) U/L Urine Color Urine Appearance (Clear) Urine pH (4.5-7.5) Ur Specific [place] (1.000-1.030) Urine Protein (Negative) Urine Glucose (UA) (Negative) Urine Ketones (Negative) Urine Blood (Negative) Urine Nitrite (Negative) Urine Bilirubin (Negative) Urine Urobilinogen (Negative) Ur Leukocyte Esterase (Negative) Urine WBC (Auto) (0-5) /hpf Urine RBC (Auto) (0-4) /hpf U Hyaline Cast (Auto) (0-5) /lpf U Epithel Cells (Auto) (0-5) /lpf Urine Bacteria (Auto) (Negative) COVID-19 [email or web address] Administered Medications Ciprofloxacin (Cipro / D5w) 400 mg in 200 mls @ 100 mls/hr IV NOW STA; Protocol Stop: 09/25/20 19:11 Last Admin: 09/25/20 18:35 Dose: 100 mls/hr Documented by: [id number] Discontinued Medications Metronidazole (Flagyl) 500 mg in 100 mls @ 100 mls/hr IV NOW STA Stop: 09/25/20 18:11 Last Infusion: 09/25/20 18:36 Dose: 0 mls/hr Documented by: [id number] Admin: 09/25/20 17:27 Dose: 100 mls/hr Documented by: [id number] Sodium Chloride (Nss 1000ml) 1,000 mls @ 999 mls/hr IV .Q1H1M ONE Stop: 09/25/20 18:14 Last Admin: 09/25/20 17:27 Dose: 999 mls/hr Documented by: [id number] Discharge Plan Visit Data Chief Complaint: Abdominal Pain Stated Complaint: ABD PAIN,LRQ ED Provider: Abdullahi Matta Discharge Problem: Acute appendicitis with localized peritonitis, Abdominal pain, RLQ Forms Stand Alone Forms: [facility] Prescriptions Prescriptions: No Action albuterol sulfate [Proventil HFA] 90 mcg/actuation HFA aerosol inhaler 2 puffs inhalation Q6H PRN (Reason: shortness of breath or wheezing) Qty: 6.7 RF: 5 thyroid (pork) [[place] Thyroid] 60 mg tablet 60 mg PO DAILY Qty: 90 RF: 3 estradiol [Vagifem] 10 mcg tablet 10 mcg PV 2XWK Qty: 24 RF: 0 organ concentrates 80 mg capsule 0 mg PO UD RF: 0 calcium citrate-vitamin D3 [Citracal + D Maximum] 315 mg- 250 unit tablet 1 tab PO BID RF: 0 epinephrine 0.3 mg/0.3 mL auto-injector 0.3 mg IM ONCE PRN (Reason: anaphylaxis) Qty: 1 RF: 0 tretinoin 0.1 % cream 1 appln topical .QHS Qty: 1 RF: 0 vitamin B complex [B Complex-Vitamin B12] tablet 1 tab PO DAILY RF: 0 Restasis 0.05 % dropperette 1 drp OPB AMHS RF: 0 cyanocobalamin (vitamin B-12) 100 mcg tablet 100 mcg PO DAILY RF: 0 Allergy Drops 0 drp subcut .DAILY UD RF: 0 Pazeo 0.7 % drops 1 drp OPB DAILY PRN (Reason: ..) RF: 0
[2020-09-25 16:29] LABS: Appearance Urine Cloudy (Clear); Bacteria Urine Automated 4+ (Negative); Bilirubin Urine Negative (Negative); Blood Urine Negative (Negative); Cast Urine Automated 0 /lpf (0-5); Color Urine Yellow; Glucose Urine UA Negative (Negative); Ketones Urine Negative (Negative); Leukocyte Esterase Urine Negative (Negative); Nitrite Urine Negative (Negative); Protein Urine Negative (Negative); RBC Urine Automated 0-4 /hpf (0-4); Specific Gravity Urine 1.012 (1.000-1.030); Urobilinogen Urine Negative (Negative); pH Urine 6.5 (4.5-7.5)
[2020-09-25 16:37] LABS: Basophils # (auto) 0.01 K/uL (0-0.2); Basophils % (auto) 0.1 %; Hematocrit (blood only) 46.4 % (37-47); Hemoglobin 15.9 g/dL (12.0-16.0); Immature Granulocytes # (auto) 0.04 K/uL (0.00-0.02); Immature Granulocytes % (auto) 0.3 %; Lymphocytes # (auto) 0.99 K/uL (1.2-3.4); Mean Corpuscular Hemoglobin 31.8 pg (25-34); Mean Corpuscular Hgb Conc 34.3 g/dL (32-36); Mean Corpuscular Volume 92.8 fL (80-100); Mean Platelet Volume 11.3 fL (7.4-10.4); Monocytes # (auto) 1.17 K/uL (0.11-0.59); Monocytes % (auto) 8.3 %; Neutrophils # (auto) 11.92 K/uL (1.4-6.5); Neutrophils % (auto) 84.3 %; Platelet Count 169 K/uL (130-400); RDW Coefficient of Variation 12.7 % (11.5-14.5); RDW Standard Deviation 43.2 fL (36.4-46.3); White Blood Count 14.13 K/uL (4.8-10.8)
[2020-09-25 16:59] LABS: Albumin Level 3.7 gm/dl (3.4-5.0); BUN Creatinine Ratio 31.8 (10-20); Calcium 9.1 mg/dl (8.5-10.1); Est GFR (African American) 81.6; Est GFR (Non-African American) 70.4; Potassium 3.4 mmol/L (3.5-5.1)
[2020-09-25 17:01] LABS: Bilirubin,Total 0.7 mg/dl (0.2-1); Globulin 3.8 gm/dl (2.5-4.0); Total Protein 7.5 gm/dl (6.4-8.2)
--- NOTE | 2020-09-25 17:03 | CT Scan Report ---
CT SCAN OF THE ABDOMEN AND PELVIS WITHOUT IV CONTRAST CLINICAL HISTORY: Right lower quadrant abdominal pain. COMPARISON STUDY: Abdominal CT dated 07/09/2007. TECHNIQUE: CT scan of the abdomen and pelvis is performed from the lung bases to the proximal femora. Images are reviewed in the axial, sagittal, and coronal planes. IV contrast was not administered for this examination. Note that the examination is suboptimal without oral and IV contrast. A dose lower ing technique was utilized adhering to the principles of ALARA. CT DOSE: 655.09 mGy.cm FINDINGS: Lung bases: The heart is normal in size and without pericardial effusion. There is trace right pleura l effusion. The lung bases are otherwise clear noting bibasilar scarring/atelectasis. Liver: The unenhanced liver is normal in size, contour, and attenuation. There is no intrahepatic yesica iary ductal dilatation. Gallbladder: Unremarkable. Spleen: Normal in size and attenuation. Pancreas: Unremarkable. Adrenal glands: Unremarkable. Kidneys: The unenhanced kidneys demonstrate mild cortical atrophy and are without hydronephrosis. The re are no renal calculi identified. There is no evidence of contour deforming renal mass lesion. Abdominal vasculature: The abdominal aorta is normal in course and caliber. Bowel: There is advanced colonic diverticulosis without CT evidence of acute diverticulitis. No bowel obstruction is seen. Fecal retention is noted in the right colon. The appendix is distended and flu id-filled, measuring up to 1.9 cm in diameter as seen on image #297. The appendiceal wall is thickene d and there is periappendiceal inflammation and fluid. A calcified appendicolith is seen on image #28 1, and the appearance is consistent with acute appendicitis. No rest fluid collection is seen suggest abscess. Peritoneum: There is no intraperitoneal free air or abdominal ascites. There is a fat-containing umbi lical hernia. Lymphadenopathy: None. Pelvic viscera: The bladder, uterus, and adnexa are normal as visualized. Small simple cystic foci me asuring up to 2.1 cm in the ovaries are unchanged dating back to 2006. Skeletal structures: The skeletal structures are osteopenic. There is mild lumbosacral spondylosis. N o lytic or blastic lesions are seen. IMPRESSION: 1. Findings are consistent with acute appendicitis. 2. No organized fluid collection is seen to suggest abscess on these unenhanced images. 3. Advanced colonic diverticulosis without CT evidence of acute diverticulitis. 4. Additional findings as above. ACT 112: Negative or not required by law. Electronically signed by: Saman Davis M.D. 09/25/2020 5:02 PM
[2020-09-25] MEDS ORDERED: CIPROFLOXACIN / D5W 400 MG/200 ML BAG IV STA (17:12)
[2020-09-25] MEDS ORDERED: metroNIDAZOLE 500 MG/100 ML BAG IV STA (17:12)
[2020-09-25] MEDS ORDERED: SODIUM CHLORIDE 0.9% 1000ML 1,000 ML IV ONE (17:14)
[2020-09-25] MEDS ORDERED: BACITRACIN OINT 15 GM TUBE ONE (18:14)
[2020-09-25] MEDS ORDERED: BUPIVACAINE 0.5 % 5 MG/1 ML MPF 30ML VIAL ONE (18:15)
[2020-09-25] MEDS ORDERED: LIDOCAINE HCL 1% 20 ML VIAL ONE (18:15)
[2020-09-25] MEDS ORDERED: fentaNYL citrate 100 MCG/2 ML VIAL ONE ×2 (18:17→19:49)
--- NOTE | 2020-09-25 18:18 | Surgery Consultation ---
Date of Consultation September 25, 2020 Assessment & Plan (1) Abdominal pain, RLQ: (2) Acute appendicitis with localized peritonitis: pt is a 70 year-old female who presents to ER with one day history RLQ pain, IMP: acute appendicitis, Plan, I recommend to do emergent laparoscopic appendectomy, possible open, D/W benefits, risks and alternatives of the surgery, the risks - infection,bleeding, abscess, injury other organs, bowel obstruction, pt understood, she agrees with the surgery, I answered all questions, pt may developes sepsis without surgery, COVID-19 test. pre-op antibiotic. Present on Admission?: Yes History of Present Illness History of Present Illness CC: acute abdominal pain HPI: The patient is a 70 year old female who presents to the Emergency Room with complaints of right lower quadrant abdominal pain. This started last and is worsening. The patient also notes the following associated symptoms, pain with palpation and movement, very slight nausea. The patient has found no relieving factors. Current pain is rated as 6/10. Patient still has her appendix. No history of abdominal surgeries. Pt denies LOC, headache, fevers, chills, diapho resis, visual changes, neck pain, chest pain, breathing difficulties, vomiting, back pain, melena, hematochezia, urinary symptoms, numbness, weakness, lymphadenopathy, rash, or other complaints. I ( Yoav Diaz mD ) got a call for consult acute appendicitis, I reviewed pt's H/P, labs and CT scan with pt at ER, pt ii still have RLQ pain. ROS: See above HPI for pertinent positives & negatives. A total of [10] systems reviewed and were otherwise negative. PAST MEDICAL HISTORY: [See Below] , hypothyroidism PAST SURGICAL HISTORY: [See Below] ,[] FAMILY HISTORY: [See Below] SOCIAL HISTORY: [See Below], tonsillectomy HOME MEDICATIONS: [See Below] ALLERGIES: [See Below] Allergies Allergy/AdvReac Type Severity Reaction Status Date / Time clavulanic acid Allergy Mild Verified 09/25/20 13:18 corn Allergy Mild DIARRHEA Verified 09/25/20 13:18 nitrofurantoin Allergy Mild Verified 09/25/20 13:18 Penicillins Allergy Mild Verified 09/25/20 13:18 Sulfa (Sulfonamide Allergy Mild UNKNOWN Verified 09/25/20 13:18 Antibiotics) gluten Allergy Unknown GI UPSET Verified 09/25/20 13:18 milk Allergy Unknown . Verified 09/25/20 13:18 soy Allergy Unknown . Verified 09/25/20 13:18 adhesive tape Allergy Verified 09/25/20 13:18 amoxicillin Allergy Verified 09/25/20 13:18 apple Allergy Verified 09/25/20 13:18 cat dander Allergy Verified 09/25/20 13:18 dog dander Allergy Verified 09/25/20 13:18 grass pollen Allergy Verified 09/25/20 13:18 house dust mite Allergy Verified 09/25/20 13:18 lactase [From Dairy Aid] Allergy Verified 09/25/20 13:18 latex Allergy Verified 09/25/20 13:18 mold Allergy Verified 09/25/20 13:18 pneumococcal vaccine Allergy Verified 09/25/20 13:18 [From Pneumovax 23] pollen extracts Allergy Verified 09/25/20 13:18 ragweed pollen Allergy Verified 09/25/20 13:18 tree and shrub pollen Allergy Verified 09/25/20 13:18 Home Medications Medication Instructions Recorded Confirmed Type cyclosporine 0.05 % eye drops in a 1 drp OPB AMHS ea 04/06/19 09/25/20 History dropperette calcium citrate 315 mg 1 tab PO BID 05/13/19 09/25/20 History calcium-vitamin D3 6.25 mcg (250 unit) tablet cyanocobalamin (vitamin B-12) 100 100 mcg PO DAILY tab 05/13/19 09/25/20 History mcg tablet epinephrine 0.3 mg/0.3 mL 0.3 mg IM ONCE PRN #1 ea 05/13/19 09/25/20 History injection, auto-injector organ concentrates 80 mg capsule 0 mg PO UD cap 05/13/19 09/25/20 History tretinoin 0.1 % topical cream 1 appln TOPICAL .QHS #1 gm 05/13/19 09/25/20 History vitamin B complex 1 tab PO DAILY 05/13/19 09/25/20 History Proventil HFA 90 mcg/actuation 2 puffs INHALATION Q6H PRN #6.7 gm 01/03/20 09/25/20 Rx aerosol inhaler NS thyroid (pork) 60 mg tablet 60 mg PO DAILY #90 tab 02/15/20 09/25/20 Rx estradiol 10 mcg vaginal tablet 10 mcg PV 2XWK #24 tab 05/22/20 09/25/20 Rx Allergy Drops 0 drp SUBCUT .DAILY UD 09/25/20 09/25/20 History olopatadine [Pazeo] 1 drp OPB DAILY PRN 09/25/20 09/25/20 History Patient History Medical History (Updated 09/25/20 @ 18:19 by Yoav Diaz MD) Bilateral leg edema Bronchospasm Dermatochalasis Dysplastic nevus Gluten enteropathy Yehuda's thyroiditis History of basal cell carcinoma History of cold sores Hypoglycemia Left hip pain Pernicious anemia Prolapse of female pelvic organs Tubular adenoma of colon Surgical History History of blepharoplasty History of oral surgery tooth extraction History of tonsillectomy Status post excisional biopsy skin cancer-2013 Family History Father Alcoholism Brain tumor Environmental allergies Hypertension Mother Dementia Skin cancer Family history of deafness and hearing loss Mitral valve prolapse Other No family history of bleeding disorder Denies family history of Ovarian cancer Prostate cancer Myocardial infarction Breast cancer Colorectal cancer Social History Smoking Status: Never smoker Hx Alcohol Use: No Hx Substance Use: No Preferred Language: Upper Sorbian Communication Ability: Effective Visual Impairment: No Limitations Hearing Ability: Normal Padder Cushion Required: No marital status: marital status details: x 2 Current Living Situation: Alone current occupational status: retired 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[employer] Feels Safe at Home: Yes Childhood Exposure to Second-Hand Smoke: Yes caffeine: No Dental Care, Regularly: Yes Physical Activity Frequency: 3-4 Times per Week Seatbelt Use: always Sunscreen Use: Yes Review of Systems Review of Systems: All systems reviewed & are unremarkable except as noted in HPI & below Constitutional: as per Subjective / HPI Eyes: as per Subjective / HPI Ear, Nose, Mouth, Throat: as per Subjective / HPI Respiratory: as per Subjective / HPI severe obstructive sleep apnea Cardiovascular: as per Subjective / HPI Additional Comments: MR, ascending aorta dilatation Gastrointestinal: as per Subjective / HPI Genitourinary: as per Subjective / HPI Musculoskeletal: as per Subjective / HPI Integumentary: as per Subjective / HPI Neurologic: as per Subjective / HPI Psychiatric: as per Subjective / HPI Endocrine: as per Subjective / HPI hopythyroidism Hematologic / Lymphatic: as per Subjective / HPI Allergy / Immunological: as per Subjective / HPI Physical Exam Constitutional: WD/WN, vitals as above well nourished and + acute distress Eyes: PERRL, conjunctivae normal, anicteric sclerae ENMT: external ear and nose normal, oropharynx normal Neck: trachea midline, no thyromegaly Respiratory: normal respiratory effort, lungs clear to auscultation normal respiratory effort Cardiovascular: RRR, no murmur, no edema Rate/Rhythm: regular rate and regular rhythm Heart Sounds: normal S1 and normal S2 Gastrointestinal (Abdomen): Percussion/Palpation: + abdomen tender and abdomen soft tenderness at RLQ with rebound pain, BS +, no distend Musculoskeletal: Spine: + limited cervical ROM Skin: no rashes, warm and dry Neurologic: awake Psychiatric: Orientation: alert and oriented x 3 Results & Data ([facility]) Vital Signs (Past 12 Hours) Vital Signs Temp Pulse Pulse Resp BP BP Pulse Ox 09/25/20 17:36 91 H 20 132/105 H 95 09/25/20 14:22 37.6 C H 98 H 18 136/85 95 Laboratory Results Abnormal lab results 09/25/20 09/25/20 09/25/20 Range/Units 16:00 16:26 16:26 WBC 14.13 H (4.8-10.8) K/uL MPV 11.3 H (7.4-10.4) fL Neut # (Auto) 11.92 H (1.4-6.5) K/uL Lymph # (Auto) 0.99 L (1.2-3.4) K/uL [place] # (Auto) 1.17 H (0.11-0.59) K/uL Immature Gran # (Auto) 0.04 H (0.00-0.02) K/uL Potassium 3.4 L (3.5-5.1) mmol/L BUN 27 H (7-18) mg/dl BUN/Creatinine Ratio 31.8 H (10-20) Glucose 114 H (70-99) mg/dl AST 11 L (15-37) U/L Urine Appearance Cloudy A (Clear) U Epithel Cells (Auto) 10-20 H (0-5) /lpf Urine Bacteria (Auto) 4+ H (Negative) Diagnostic Findings CT SCAN OF THE ABDOMEN AND PELVIS WITHOUT IV CONTRAST CLINICAL HISTORY: Right lower quadrant abdominal pain. COMPARISON STUDY: Abdominal CT dated 07/09/2007. TECHNIQUE: CT scan of the abdomen and pelvis is performed from the lung bases to the proximal femora. Images are reviewed in the axial, sagittal, and coronal planes. IV contrast was not administered for this examination. Note that the examination is suboptimal without oral and IV contrast. A dose lowering technique was utilized adhering to the principles of ALARA. CT DOSE: 655.09 mGy.cm FINDINGS: Lung bases: The heart is normal in size and without pericardial effusion. There is trace right pleural effusion. The lung bases are otherwise clear noting bibasilar scarring/atelectasis. Liver: The unenhanced liver is normal in size, contour, and attenuation. There is no intrahepatic biliary ductal dilatation. Gallbladder: Unremarkable. Spleen: Normal in size and attenuation. Pancreas: Unremarkable. Adrenal glands: Unremarkable. Kidneys: The unenhanced kidneys demonstrate mild cortical atrophy and are without hydronephrosis. There are no renal calculi identified. There is no evidence of contour deforming renal mass lesion. Abdominal vasculature: The abdominal aorta is normal in course and caliber. Bowel: There is advanced colonic diverticulosis without CT evidence of acute diverticulitis. No bowel obstruction is seen. Fecal retention is noted in the right colon. The appendix is distended and fluid-filled, measuring up to 1.9 cm in diameter as seen on image #[id number]. The appendiceal wall is thickened and there is periappendiceal inflammation and fluid. A calcified appendicolith is seen on image #[id number], and the appearance is consistent with acute appendicitis. No rest fluid collection is seen suggest abscess. Peritoneum: There is no intraperitoneal free air or abdominal ascites. There is a fat-containing umbilical hernia. Lymphadenopathy: None. Pelvic viscera: The bladder, uterus, and adnexa are normal as visualized. Small simple cystic foci measuring up to 2.1 cm in the ovaries are unchanged dating back to 2006. Skeletal structures: The skeletal structures are osteopenic. There is mild lumbosacral spondylosis. No lytic or blastic lesions are seen. IMPRESSION: 1. Findings are consistent with acute appendicitis. 2. No organized fluid collection is seen to suggest abscess on these unenhanced images. 3. Advanced colonic diverticulosis without CT evidence of acute diverticulitis. 4. Additional findings as above.
[2020-09-25] MEDS ORDERED: PROPOFOL IV EMULSION 10 MG/ML 20 ML VIAL IV ONE ×2 (18:20→20:45)
[2020-09-25] MEDS ORDERED: SUCCINYLCHOLINE CHLORIDE 20 MG/ML 10 ML VIAL IV ONE (18:20)
[2020-09-25] MEDS ORDERED: LIDOCAINE HCL 2% 2 ML VIAL/AMP(20MG/ML) INFIL ONE (18:20)
[2020-09-25] MEDS ORDERED: ONDANSETRON INJ 2 MG/ML 2 ML VIAL ONE ×2 (18:23→20:45)
[2020-09-25] MEDS ORDERED: ONDANSETRON INJ 2 MG/ML 2 ML VIAL IV PRN ×2 (18:25→20:24)
[2020-09-25] MEDS ORDERED: HYDROmorphone INJ 1 MG/ML SYRINGE IV PRN ×2 (18:25→21:27)
[2020-09-25] MEDS ORDERED: fentaNYL citrate 100 MCG/2 ML VIAL IV PRN (18:25)
[2020-09-25] MEDS ORDERED: ATROPINE SULFATE 0.1 MG/ML 10ML SYR IV PRN (18:25)
[2020-09-25] MEDS ORDERED: ePHEDrine sulfate 50 MG/ML AMP IV PRN (18:25)
--- NOTE | 2020-09-25 18:25 | History & Physical Bridge Note ---
Date of Service September 25, 2020 History & Physical Bridge Note I have examined the patient, reviewed the History & Physical and in the interval since the performance of the History & Physical I have noted the following changes of clinical significance: no changes noted
--- NOTE | 2020-09-25 18:29 | Anesthesiology Consultation ---
Date of Service September 25, 2020 Assessment & Plan (1) Encounter for pre-operative examination: Chart Review Chart Review: Acceptable Risk for Surgery and Patient NOT seen in Pre Admission Testing Consults Requested none History Surgery Operation Date: 09/25/20 19:00 Proposed Procedures p Laparoscopic Appendectomy(Not Applicable) - Yoav Diaz MD Height/Weight Height: 5 ft 10 in Weight: 87.9 kg Allergies Allergy/AdvReac Type Severity Reaction Status Date / Time clavulanic acid Allergy Mild Verified 09/25/20 13:18 corn Allergy Mild DIARRHEA Verified 09/25/20 13:18 nitrofurantoin Allergy Mild Verified 09/25/20 13:18 Penicillins Allergy Mild Verified 09/25/20 13:18 Sulfa (Sulfonamide Allergy Mild UNKNOWN Verified 09/25/20 13:18 Antibiotics) gluten Allergy Unknown GI UPSET Verified 09/25/20 13:18 milk Allergy Unknown . Verified 09/25/20 13:18 soy Allergy Unknown . Verified 09/25/20 13:18 adhesive tape Allergy Verified 09/25/20 13:18 amoxicillin Allergy Verified 09/25/20 13:18 apple Allergy Verified 09/25/20 13:18 cat dander Allergy Verified 09/25/20 13:18 dog dander Allergy Verified 09/25/20 13:18 grass pollen Allergy Verified 09/25/20 13:18 house dust mite Allergy Verified 09/25/20 13:18 lactase [From Dairy Aid] Allergy Verified 09/25/20 13:18 latex Allergy Verified 09/25/20 13:18 mold Allergy Verified 09/25/20 13:18 pneumococcal vaccine Allergy Verified 09/25/20 13:18 [From Pneumovax 23] pollen extracts Allergy Verified 09/25/20 13:18 ragweed pollen Allergy Verified 09/25/20 13:18 tree and shrub pollen Allergy Verified 09/25/20 13:18 Medications Home Medications Medication Instructions Recorded Confirmed Last Taken cyclosporine 0.05 % eye drops in a 1 drp OPB AMHS ea 04/06/19 09/25/20 Unknown dropperette calcium citrate 315 mg 1 tab PO BID 05/13/19 09/25/20 Unknown calcium-vitamin D3 6.25 mcg (250 unit) tablet cyanocobalamin (vitamin B-12) 100 100 mcg PO DAILY tab 05/13/19 09/25/20 Unknown mcg tablet epinephrine 0.3 mg/0.3 mL 0.3 mg IM ONCE PRN #1 ea 05/13/19 09/25/20 Unknown injection, auto-injector organ concentrates 80 mg capsule 0 mg PO UD cap 05/13/19 09/25/20 Unknown tretinoin 0.1 % topical cream 1 appln TOPICAL .QHS #1 gm 05/13/19 09/25/20 Unknown vitamin B complex 1 tab PO DAILY 05/13/19 09/25/20 Unknown Proventil HFA 90 mcg/actuation 2 puffs INHALATION Q6H PRN #6.7 gm 01/03/20 09/25/20 Unknown aerosol inhaler NS thyroid (pork) 60 mg tablet 60 mg PO DAILY #90 tab 02/15/20 09/25/20 Unknown estradiol 10 mcg vaginal tablet 10 mcg PV 2XWK #24 tab 05/22/20 09/25/20 Unknown Allergy Drops 0 drp SUBCUT .DAILY UD 09/25/20 09/25/20 Unknown olopatadine [Pazeo] 1 drp OPB DAILY PRN 09/25/20 09/25/20 Unknown Past Medical History Medical History (Updated 09/25/20 @ 18:39 by Abdullahi Matta MD) Ascending aorta dilatation Bilateral leg edema Bronchospasm Dermatochalasis Dysplastic nevus Gluten enteropathy Yehuda's thyroiditis History of basal cell carcinoma History of cold sores Hypoglycemia Left hip pain Mitral regurgitation Pernicious anemia Prolapse of female pelvic organs Severe obstructive sleep apnea Tubular adenoma of colon Exercise / Class Metabolic Activity II 4-5 Yardwork/Stairs/Walk up hill Past Family History Family History Father Alcoholism Brain tumor Environmental allergies Hypertension Mother Dementia Skin cancer Family history of deafness and hearing loss Mitral valve prolapse Other No family history of bleeding disorder Denies family history of Ovarian cancer Prostate cancer Myocardial infarction Breast cancer Colorectal cancer Past Surgical History Surgical History History of blepharoplasty History of oral surgery tooth extraction History of tonsillectomy Status post excisional biopsy skin cancer-2013 Past Anesthesia History No Hx of Anesthesia Complications and No Family Hx of Anesthesia Complications History of PONV No Hx of PONV and No Hx of Motion Sickness Social History Smoking Status: Never smoker Do You Dip or Chew Tobacco: No Hx Alcohol Use: No Hx Substance Use: No Physical Exam Vital Signs Last Vital Signs Temp 37.6 C H 09/25/20 19:09 Pulse 98 H 09/25/20 19:09 Resp 16 09/25/20 19:09 BP 136/69 09/25/20 19:09 Pulse Ox 94 09/25/20 19:09 Testing Laboratory Results 09/25/20 16:26 09/25/20 16:26 Urine Color Yellow 09/25/20 16:00 Urine Appearance Cloudy (Clear) A 09/25/20 16:00 Urine pH 6.5 (4.5-7.5) 09/25/20 16:00 Ur Specific [place] 1.012 (1.000-1.030) 09/25/20 16:00 Urine Protein Negative (Negative) 09/25/20 16:00 Urine Glucose (UA) Negative (Negative) 09/25/20 16:00 Urine Ketones Negative (Negative) 09/25/20 16:00 Urine Nitrite Negative (Negative) 09/25/20 16:00 Ur Leukocyte Esterase Negative (Negative) 09/25/20 16:00 Urine WBC (Auto) 1-5 /hpf (0-5) 09/25/20 16:00 Urine RBC (Auto) 0-4 /hpf (0-4) 09/25/20 16:00 U Hyaline Cast (Auto) 0 /lpf (0-5) 09/25/20 16:00 U Epithel Cells (Auto) 10-20 /lpf (0-5) H 09/25/20 16:00 Urine Bacteria (Auto) 4+ (Negative) H 09/25/20 16:00 Electrocardiogram Date: 06/17/20 sr with arrhythmia. lafb
--- NOTE | 2020-09-25 20:21 | Post Operative Brief Note ---
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
--- NOTE | 2020-09-25 20:42 | Anesthesiology Progress Note ---
Date of Service September 25, 2020 Anesthesia Post Procedure Vital Signs Vital Signs: Temp Pulse Pulse Resp BP BP Pulse Ox 09/25/20 19:09 37.6 C H 98 H 16 136/69 94 09/25/20 18:36 91 H 20 160/85 H 95 09/25/20 17:36 91 H 20 132/105 H 95 09/25/20 14:22 37.6 C H 98 H 18 136/85 95 Pain Intensity Right Lower Abdomen: Pain Intensity: 5 Transfer of Care Handoff Completed per policy Notes Mental Status: alert / awake / arousable and participated in evaluation Patient Amnestic to Procedure: Yes Nausea / Vomiting: adequately controlled Pain: adequately controlled Airway Patency, RR, SpO2: stable & adequate BP & HR: stable & adequate Hydration State: stable & adequate Anesthetic Complications: no major complications apparent and Pt Satisfied with anesthetic care
[2020-09-25] MEDS ORDERED: NEOSTIGMINE METHYLSULFATE 5 MG/5 ML SYR ONE (20:45)
[2020-09-25] MEDS ORDERED: ROCURONIUM BROMIDE 10 MG/ML 5 ML VIAL IV ONE (20:45)
[2020-09-25] MEDS ORDERED: GLYCOPYRROLATE 0.2 MG/ML VIAL ONE (20:45)
[2020-09-25] MEDS ORDERED: DEXAMETHASONE SOD INJ 4 MG/ML VIAL ONE (20:45)
[2020-09-25] MEDS ORDERED: [UNRECOGNIZED DRUG - OTHER] PO SCH (21:27)
[2020-09-25] MEDS ORDERED: LACTATED RINGER'S 1,000 ML IV SCH (21:27)
[2020-09-25] MEDS ORDERED: oxyCODONE/ACETAMINOPHEN 5mg/325mg TAB PO PRN (21:27)
[2020-09-25] MEDS ORDERED: ALBUTEROL HFA 8 GM INHALER INH PRN (21:27)
[2020-09-25] MEDS ORDERED: EPINEPHrine INJ 1 MG/ML AMP IM PRN (21:34)
--- NOTE | 2020-09-26 00:34 | Operative Report (OR) ---
DATE OF OPERATION: 09/25/2020 PREOPERATIVE DIAGNOSIS: Acute appendicitis. POSTOPERATIVE DIAGNOSIS: Acute appendicitis. OPERATION: Laparoscopic appendectomy. SURGEON: Yoav Diaz MD. ANESTHESIA: General. ESTIMATED BLOOD LOSS: About 5 mL. FINDINGS: Acute appendicitis with gangrene. COMPLICATIONS: None. INDICATIONS FOR THE PROCEDURE: This is a 70-year-old female who presented to the ED with 1-day history of right lower quadrant pain and the patient had a CT scan diagnosis of acute appendicitis. I recommended to do laparoscopic appendectomy, possible open. I did talk to the patient about the benefit, the risk, alternate procedure. I indicated the risks may include but not limited such as bleeding, infection, abscess, bowel obstruction, injury to other organs, incisional hernia. The patient understands. She signed informed consent and I answered all questions. DETAILS OF PROCEDURE: We brought the patient to the OR, put the patient in the supine position. The patient received SCD on bilateral legs to prevent DVT. Also, patient received 400 mg of Cipro IV for prophylactic antibiotic and also the patient received 500 mg Flagyl IV for prophylactic antibiotic. The patient received general anesthesia without difficulties. Abdomen was prepped and draped in routine sterile fashion. After time-out, I injected local anesthesia by using 1% lidocaine mixed with 0.5% Marcaine just above the umbilicus. Then, I made a small incision just above umbilicus, opened fascia and opened peritoneum under direct vision, put a Tiffanie trocar in, connected to CO2 to create pneumoperitoneum. Flow rate at 6 liters per minute. Pressure not more than 14 mmHg. Once we got a nice pneumoperitoneum, we put the camera in, looked around the abdomen, shows normal finding on the small bowel, large bowel and small amount of free flow on the pelvic area and the appendix shows a significantly enlarged with inflammation and with focal gangrene, confirmed diagnosis of acute appendicitis. Then, we put another two 5 mm trocars on the left lower quadrant area and mobilized the appendiceal by using Harmonic and rechecked and no active bleeding. Then I used a 45 mm Endo-VINEET staple for transection on the base of appendix, rechecked the staple line intact. No active bleeding, no leak. Then we removed the appendix through the catcher bag. Then we reinserted Tiffanie trocar in, connected to CO2 to create pneumoperitoneum, again looked around the abdomen, no active bleeding, no leak on the staple line and also we suctioned out minimal amount of pelvic flow about 5 mL. Then we removed all trocar under direct vision. No active bleeding from the trocar sites. Pneumoperitoneum was released. I then closed the umbilical incision, fascial layer by using 0 Vicryl [id number] x2, closed subcutaneous layer by using 2-0 Vicryl interruptedly, closed skin by using 4-0 Vicryl continuous running, closed another two 5 mm trocar site skin only by using 4-0 Vicryl. Then, we put the dressing on. The patient tolerated the procedure well. All instrument, needle and sponge count were correct x2 at the end of the case and the patient transferred to recovery room in stable condition. The specimen sent to pathology. I attest to the content of the Intraoperative Record and any orders documented therein. Any exception s are noted below.
[2020-09-26] MEDS: metroNIDAZOLE 500 MG/100 ML BAG IV SCH ×2 (01:49→10:52)
[2020-09-26] MEDS ORDERED: ARMOUR THYROID 30 MG TAB PO SCH (06:30)
[2020-09-26] MEDS ORDERED: CIPROFLOXACIN / D5W 400 MG/200 ML BAG IV SCH (07:00)
--- NOTE | 2020-09-26 07:07 | Surgery Progress Note ---
Date of Service F/U S/P laparoscopic appendectomy, POD 1 pt is doing fine, no abdominal pain, no nausea, no vomiting, no fever, tolerated clear diet. September 26, 2020 Assessment & Plan (1) Abdominal pain, RLQ: (2) Acute appendicitis with localized peritonitis: pt is a 70 year-old female who presents to ER with one day history RLQ pain, IMP: acute appendicitis, Plan, I recommend to do emergent laparoscopic appendectomy, possible open, D/W benefits, risks and alternatives of the surgery, the risks - infection,bleeding, abscess, injury other organs, bowel obstruction, pt understood, she agrees with the surgery, I answered all questions, pt may develope sepsis without surgery, COVID-19 test. pre-op antibiotic. 09/26/2020 7:04AM F/U S/P laparoscopic appendectomy, POD 1, I informed pt about OR finding and the surgery pt had, pt understood, I answered all questions. doing fine, pt wants to go home today, the post-op care instructions are given. F/U 2 weeks, Admission and Anticipated Discharge Date Admission Date: September 25, 2020 Review of Systems Constitutional: as per Subjective / HPI Eyes: as per Subjective / HPI Ear, Nose, Mouth, Throat: as per Subjective / HPI Respiratory: as per Subjective / HPI severe obstructive sleep apnea Cardiovascular: as per Subjective / HPI Additional Comments: MR, ascending aorta dilatation Gastrointestinal: as per Subjective / HPI Genitourinary: as per Subjective / HPI Musculoskeletal: as per Subjective / HPI Integumentary: as per Subjective / HPI Neurologic: as per Subjective / HPI Psychiatric: as per Subjective / HPI Endocrine: as per Subjective / HPI hopythyroidism Hematologic / Lymphatic: as per Subjective / HPI Allergy / Immunological: as per Subjective / HPI Physical Exam Constitutional: WD/WN, vitals as above well nourished and + acute distress Eyes: PERRL, conjunctivae normal, anicteric sclerae ENMT: external ear and nose normal, oropharynx normal Neck: trachea midline, no thyromegaly Respiratory: normal respiratory effort, lungs clear to auscultation normal respiratory effort Cardiovascular: RRR, no murmur, no edema Rate/Rhythm: regular rate and regular rhythm Heart Sounds: normal S1 and normal S2 Gastrointestinal (Abdomen): Percussion/Palpation: abdomen soft NT, ND, all incisions intact, no redness, BS + Musculoskeletal: Spine: + limited cervical ROM Skin: no rashes, warm and dry Neurologic: awake Psychiatric: Orientation: alert and oriented x 3 Results & Data ([facility]) Vital Signs (Past 12 Hours) Vital Signs Temp Pulse Pulse Resp BP BP Pulse Ox 09/26/20 04:18 36.8 C 71 16 107/57 L 93 09/26/20 00:20 37.0 C 79 15 116/61 91 09/25/20 23:15 37.0 C 71 18 126/74 95 09/25/20 22:13 36.8 C 70 16 121/70 93 09/25/20 21:42 36.8 C 76 16 122/74 93 09/25/20 21:15 37.4 C 85 12 136/74 92 09/25/20 21:10 79 22 140/64 94 09/25/20 21:00 37.2 C 79 22 137/66 94 09/25/20 20:50 80 20 144/70 H 96 09/25/20 20:40 79 19 138/64 97 09/25/20 20:34 36.9 C 81 18 141/77 H 99 09/25/20 19:09 37.6 C H 98 H 16 136/69 94
[2020-09-26 08:02] LABS: Basophils # (auto) 0.01 K/uL (0-0.2); Basophils % (auto) 0.1 %; Hematocrit (blood only) 40.8 % (37-47); Hemoglobin 13.5 g/dL (12.0-16.0); Immature Granulocytes # (auto) 0.03 K/uL (0.00-0.02); Immature Granulocytes % (auto) 0.2 %; Lymphocytes # (auto) 1.16 K/uL (1.2-3.4); Lymphocytes % (auto) 9.6 %; Mean Corpuscular Hemoglobin 31.2 pg (25-34); Mean Corpuscular Hgb Conc 33.1 g/dL (32-36); Mean Corpuscular Volume 94.2 fL (80-100); Mean Platelet Volume 11.3 fL (7.4-10.4); Monocytes # (auto) 0.98 K/uL (0.11-0.59); Monocytes % (auto) 8.1 %; Neutrophils # (auto) 9.91 K/uL (1.4-6.5); Platelet Count 175 K/uL (130-400); RDW Coefficient of Variation 12.9 % (11.5-14.5); Red Blood Count 4.33 M/uL (4.2-5.4); White Blood Count 12.09 K/uL (4.8-10.8)
[2020-09-26 08:42] LABS: Albumin Globulin Ratio 0.9 (0.9-2); Bilirubin,Total 0.8 mg/dl (0.2-1); Calcium 9.1 mg/dl (8.5-10.1); Creatinine Clr Calc Pharmacy 71.7 ml/min; Est GFR (African American) 77.2; Est GFR (Non-African American) 66.6; Globulin 3.3 gm/dl (2.5-4.0); Potassium 4.2 mmol/L (3.5-5.1); Total Protein 6.3 gm/dl (6.4-8.2)
[2020-09-26] MEDS ORDERED: CYANOCOBALAMIN (VITAMIN B-12) 100 MCG TABLET PO SCH (09:00)
[2020-09-26] MEDS ORDERED: VITAMIN B COMPLEX TAB PO SCH (09:00)
[2020-09-26] MEDS ORDERED: CALCIUM 600MG + VIT D 400 IU TAB PO SCH (09:00)
--- NOTE | 2020-09-26 23:13 | Discharge Summary (DS) ---
ADMITTING DIAGNOSIS: Acute appendicitis. DISCHARGE DIAGNOSIS: Acute appendicitis. OPERATION: Laparoscopic appendectomy. SURGEON: Yoav Diaz MD. DETAILS OF DISCHARGE SUMMARY: This is a 70-year-old female who presented to ED with acute abdominal pain and the patient had a CT scan diagnosis of acute appendicitis. We took the patient to the OR. We did a laparoscopic appendectomy. 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 We did a laparoscopic appendectomy. The patient tolerated the procedure well and later on transferred to regular floor. The patient is doing fine. She tolerates a clear diet. No nausea, no vomiting, no fever. PHYSICAL EXAMINATION: VITAL SIGNS: Temperature is 36.7, respiratory rate is 17, the heart rate 67, blood pressure 116/62, O2 sat aeration 91% on room air. GENERAL: The patient is alert, awake, oriented x3. HEENT: With normal limitation. NEUROLOGIC: Intact. NECK: No JVD. CHEST: Bilateral lung sounds clear. HEART: Normal S1, S2. No murmur. ABDOMEN: Soft, nondistended, no tenderness. All dressings intact. All incision intact and no redness. EXTREMITIES: No edema. PLAN: The patient wanted to go home. We gave the patient postop care instruction. The patient understands. I will follow up the patient in 2 weeks.
== END 2020-09-26 11:32 | disposition home or self-care (01) ==
LOC: ED 14:12 → OR 18:58 → 3W 18:58

== ENCOUNTER 2021-10-23 11:16 | Inpatient (IN) ==
[2021-10-23] MEDS ORDERED: POTASSIUM CHLORIDE CRTAB 20 MEQ TABCR PO STA (11:55)
[2021-10-23] MEDS ORDERED: FUROSEMIDE 40 MG/4 ML VIAL IV ONE (11:55)
[2021-10-23] MEDS ORDERED: dilTIAZem HCl 5 MG/ML 5 ML VIAL IV STA (11:55)
[2021-10-23] MEDS ORDERED: STAT IV Infusion **Titration per Protocol STA (11:55)
--- NOTE | 2021-10-23 12:30 | Emergency Department Note ---
Impression & Plan Atrial fibrillation with RVR, Fluid overload, ROSS (dyspnea on exertion), Elevated troponin I level, Hypokalemia ED Provider Note Provider: John Fried MD DATE OF SERVICE: 10/23/2021 CHIEF COMPLAINT: Leg swelling, shortness of breath, fatigue HISTORY OF PRESENT ILLNESS: Patient is a 71-year-old female past medical history of aortic dilation and hypothyroidism presenting here today referred from the primary care office due to new onset atrial fibrillation with fluid overload. Patient evidently has been experiencing some symptoms since around October 11 with some fatigue and fevers and some increasing shortness of breath. Had several virtual visits in outpatient testing including negative Covid and influenza testing on the . Negative Lyme testing and minimal transaminitis noted on outpatient labs from October 17. Was seen in the clinic today. Patient has been on a short course of outpatient prednisone and was on a brief course of doxycycline without improvement. She reports that she is no longer having any fevers but has been having increased dyspnea on exertion and shortness of breath. Patient states she some difficulty getting around the stairs and again worsening swelling of the legs. States she had a little rash in her right leg but that improved. Denies any nausea, vomiting, or diarrhea. States has been trying to hydrate well. Patient was seen in the outpatient clinic and noted to be in atrial fibrillation and the patient refused immediate transport went home to get her belongings and then called an ambulance to come here for further evaluation. She denies any chest pain at this time. Denies a history of atrial fibrillation. REVIEW OF SYSTEMS: A total of 10 review of systems was obtained and negative except as stated above in the HPI. PAST MEDICAL HISTORY: As noted above MEDICATIONS: Reviewed home medications with the patient SOCIAL HISTORY: Lives at home by herself PHYSICAL EXAM: GENERAL: alert and oriented in no acute distress on stretcher Head: normocephalic and atraumatic EYES: No injection, discharge or icterus. NECK: Trachea midline. LUNGS: Airway patent. No retractions. Breath sounds diminished in the bases. HEART: Regular tachycardic rate and rhythm. No chest wall tenderness ABDOMEN: Soft and non-tender, without guarding or rebound. SKIN: Acyanotic, warm, dry, without rashes EXTREMITIES: Patient with 2+ bilateral lower extremity edema NEUROLOGICAL: No focal deficits. No aphasia. No facial droop or slurred speech. Ambulatory. EK bpm atrial fibrillation with rapid ventricular response. No acute ST segment elevation or depression noted. QTc 399. CONTINUOUS CARDIAC MONITORING: was ordered and showed a heart rate of 100s-150s bpm in atrial fibrillation Patient's laboratory studies and imaging reviewed. Differential includes Infection, dehydration, metabolic abnormality, hypo/hyperglycemia, electrolyte disturbance, anemia, hypoxia, cardiac sources, intracerebral event, toxicologic, neurologic, as well as other pathologies. IMPRESSION/MEDICAL DECISION MAKING: Patient with new onset atrial fibrillation. Given some diltiazem to work towards rate control. Patient with evidence of fluid overload in the lungs and on the chest x-ray from yesterday. Thyroid function recently within normal limits. Some hypokalemia noted on blood work from yesterday. Oral potassium supplementation was ordered. Discussed with the patient findings of atrial fibrillation and disease course. Discussed with her need for rate control and plan for eventual anticoagulation as well as diuresis for her fluid overload. Increasing diltiazem drip for rate control and she is amatory the bathroom multiple times. Some ROSS with this but not significantly descending. Patient does however have increased tachycardia in the 140s and 150s with the trips to the bathroom. Troponin returns mildly elevated likely more demand from the A. fib RVR. Heparin drip will be started. Patient will need further cardiac care and monitoring here in the hospital. Hospitalist was contacted. DIAGNOSIS: Atrial fibrillation with rapid ventricular response, fluid overload, hypokalemia, elevated troponin DISPOSITION: Hospitalist will evaluate Patient was agreeable with this plan. Critical Care I have personally spent 33 minutes of critical care time in the direct management of this patient. This includes bedside care, interpretation of diagnostic studies, and testing, discussion with consultants, patient, and other required patient management activities. These 33 minutes is in excess of all separately billable procedures. Past Med/Surg History Medical History Ascending aorta dilatation Bilateral leg edema Bronchospasm Dermatochalasis Dysplastic nevus Gluten enteropathy Yehuda's thyroiditis History of basal cell carcinoma History of cold sores Hypoglycemia Left hip pain Mitral regurgitation Pernicious anemia Prolapse of female pelvic organs Severe obstructive sleep apnea Tubular adenoma of colon Surgical History History of appendectomy History of blepharoplasty History of oral surgery tooth extraction History of tonsillectomy Status post excisional biopsy skin cancer-2014 Family History Father Alcoholism Brain tumor Environmental allergies Hypertension Mother Dementia Skin cancer Family history of deafness and hearing loss Mitral valve prolapse Other No family history of bleeding disorder Denies family history of Ovarian cancer Prostate cancer Myocardial infarction Breast cancer Colorectal cancer Social History Smoking Status: Never smoker Second Hand Exposure: No; Hx Alcohol Use: No Hx Substance Use: No Preferred Language: Qatari Communication Ability: Effective Visual Impairment: Limited Hearing Ability: Normal Rn Renal Required: No Beliefs That Will Affect Care: None marital status: marital status details: x 2 Current Living Situation: Alone current occupational status: retired 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 How many Children do You have: 1 Feels Safe at Home: Yes Childhood Exposure to Second-Hand Smoke: Yes caffeine: Yes (chocolate ) Dental Care, Regularly: Yes Physical Activity Frequency: 3-4 Times per Week Seatbelt Use: always Sunscreen Use: Yes Assistive Devices: Glasses Allergies Allergies Allergy/AdvReac Type Severity Reaction Status Date / Time clavulanic acid Allergy Mild Verified 10/23/21 09:37 corn Allergy Mild DIARRHEA Verified 10/23/21 09:37 nitrofurantoin Allergy Mild Verified 10/23/21 09:37 Penicillins Allergy Mild Verified 10/23/21 09:37 Sulfa (Sulfonamide Allergy Mild UNKNOWN Verified 10/23/21 09:37 Antibiotics) gluten Allergy Unknown GI UPSET Verified 10/23/21 09:37 milk Allergy Unknown . Verified 10/23/21 09:37 soy Allergy Unknown . Verified 10/23/21 09:37 adhesive tape Allergy Verified 10/23/21 09:37 amoxicillin Allergy Verified 10/23/21 09:37 apple Allergy Verified 10/23/21 09:37 cat dander Allergy Verified 10/23/21 09:37 dog dander Allergy Verified 10/23/21 09:37 grass pollen Allergy Verified 10/23/21 09:37 house dust mite Allergy Verified 10/23/21 09:37 lactase [From Dairy Aid] Allergy Verified 10/23/21 09:37 latex Allergy Verified 10/23/21 09:37 mold Allergy Verified 10/23/21 09:37 pneumococcal vaccine Allergy Verified 10/23/21 09:37 [From Pneumovax 23] pollen extracts Allergy Verified 10/23/21 09:37 ragweed pollen Allergy Verified 10/23/21 09:37 tree and shrub pollen Allergy Verified 10/23/21 09:37 Home Meds Home Medications Medication Instructions Recorded Confirmed epinephrine 0.3 mg/0.3 mL 0.3 mg IM ONCE PRN #1 ea 05/13/19 10/23/21 injection, auto-injector organ concentrates 80 mg capsule 0 mg PO UD cap 05/13/19 10/23/21 vitamin B complex (B 1 tab PO DAILY 05/13/19 10/23/21 Complex-Vitamin B12) cyanocobalamin (vitamin B-12) 100 100 mcg PO WK tab 12/11/20 10/23/21 mcg tablet tretinoin 0.1 % topical cream 1 applic TOPICAL HS PRN #1 gm 12/11/20 10/23/21 cyclosporine 0.05 % eye drops in a 1 drp OPHTHALMIC (EYE) Q12H 02/27/21 10/23/21 dropperette (Restasis) calcium citrate 315 mg 1 tab PO TID tab 09/07/21 10/23/21 calcium-vitamin D3 6.25 mcg (250 unit) tablet (Citracal + Vitamin D Maximum) Allergy Drops 1 drp SUBLINGUAL TID 10/23/21 10/23/21 Dessaicrated Adrenal Supp 1 - 18 tab PO DAILY 10/23/21 10/23/21 Drenatrophin 1 tab PO TID 10/23/21 10/23/21 Saccharomyces boulardii 250 mg 500 mg PO TID 10/23/21 10/23/21 capsule (Florastor) Thytrophin 4 cap PO UD 10/23/21 10/23/21 blue-green algae (Spirulina) 500 0 mg PO QID 10/23/21 10/23/21 mg tablet mupirocin 2 % topical ointment 1 applic TOPICAL TID PRN 10/23/21 10/23/21 olopatadine 0.7 % eye drops 1 drp OPHTHALMIC (EYE) DAILY 10/23/21 10/23/21 (Pataday Once Daily Relief) Previous Rx's Medication Instructions Recorded estradiol 10 mcg vaginal tablet 10 mcg PV 2XWK #24 tab 11/20/20 (Vagifem) thyroid (pork) 60 mg tablet 60 mg PO DAILY #90 tab 03/12/21 ([place] Thyroid) B-complex with vitamin C 1 cap PO DAILY #30 cap 09/18/21 ascorbate calcium (vitamin C) 500 500 mg PO DAILY #30 tab 09/18/21 mg tablet biotin 1 mg capsule 1 mg PO DAILY #30 cap 09/18/21 cetirizine 10 mg capsule (Zyrtec) 10 mg PO DAILY PRN #7 cap 09/18/21 cholecalciferol (vitamin D3) 8,000 unit PO DAILY #5 ml 09/18/21 coenzyme Q10 30 mg capsule (CoQ-10) 30 mg PO DAILY #30 cap 09/18/21 digestive enzymes 1 cap PO DAILY #30 cap 09/18/21 selenium 200 mcg capsule 200 mcg PO DAILY #30 cap 09/18/21 vitamin E 200 unit capsule 200 unit PO DAILY #30 cap 09/18/21 Proventil HFA 90 mcg/actuation 2 puff INHALATION Q6H PRN #6.7 gm 10/15/21 aerosol inhaler (albuterol sulfate) NS Results & Data (ED) Vital Signs Vital Signs - 24 hr 10/23/21 11:38 10/23/21 15:16 Temperature 37 C Temperature Source Oral Pulse Rate 118 H Pulse Rate [Apical] 111 H Pulse Rhythm Regular Pulse Rhythm [Apical] Irregular Pulse Strength Normal Respiratory Rate 18 19 Respiratory Effort / Characteristics Non-Labored Spontaneous Non-Labored Spontaneous Respiratory Depth Normal Normal Respiratory Pattern Regular Regular Blood Pressure 124/93 Blood Pressure [Right Arm] 129/54 L Blood Pressure Mean 103 Blood Pressure Mean [Right Arm] 79 Blood Pressure Position Lying Blood Pressure Position [Right Arm] Lying Pulse Oximetry 97 92 Oxygen Delivery Method Nasal Cannula Room Air Oxygen Flow Rate 2 Sepsis Recent Fever Within 48 Hours No Sepsis New/Unexplained Change in Mental Status N/A Sepsis Action Taken by Nursing No Action Required Laboratory Data Result diagrams: 10/23/21 12:25 10/23/21 12:25 Lab Results 10/23/21 10/23/21 10/23/21 Range/Units 12:25 12:25 12:25 WBC 8.90 (4.8-10.8) K/uL RBC 4.46 (4.2-5.4) M/uL Hgb 13.8 (12.0-16.0) g/dL Hct 42.1 (37-47) % MCV 94.4 (80-100) fL MCH 30.9 (25-34) pg MCHC 32.8 (32-36) g/dL RDW Std Deviation 48.1 H (36.4-46.3) fL RDW Coeff of Matilde 14.0 (11.5-14.5) % Plt Count 351 (130-400) K/uL MPV 9.7 (7.4-10.4) fL Immature Gran % (Auto) 0.9 % Neut % (Auto) 77.6 % Lymph % (Auto) 13.0 % Ferry % (Auto) 7.3 % Eos % (Auto) 0.9 % Baso % (Auto) 0.3 % Neut # (Auto) 6.90 H (1.4-6.5) K/uL Lymph # (Auto) 1.16 L (1.2-3.4) K/uL Ferry # (Auto) 0.65 H (0.11-0.59) K/uL Eos # (Auto) 0.08 (0-0.5) K/uL Baso # (Auto) 0.03 (0-0.2) K/uL Immature Gran # (Auto) 0.08 H (0.00-0.02) K/uL Sodium 136 (136-145) mmol/L Potassium 3.1 L (3.5-5.1) mmol/L Chloride 104 (98-107) mmol/L Carbon Dioxide 26 (21-32) mmol/L Anion Gap 6.0 (3-11) BUN 12 (7-18) mg/dl Creatinine 0.81 (0.6-1.2) mg/dl Est Cr Clr Drug Dosing 79.5 ml/min Est GFR ( Amer) 84.7 ml/min Est GFR (Non-Af Amer) 73.1 ml/min BUN/Creatinine Ratio 14.4 (10-20) Glucose 110 H (70-99) mg/dl Calcium 8.9 (8.5-10.1) mg/dl Magnesium 2.5 H (1.8-2.4) mg/dl Total Bilirubin 0.5 (0.2-1) mg/dl AST 22 (15-37) U/L ALT 66 (12-78) Alkaline Phosphatase 54 (45-117) U/L Troponin I 0.081 H* (0-0.045) ng/ml Total Protein 7.8 (6.4-8.2) gm/dl Albumin 2.7 L (3.4-5.0) gm/dl Globulin 5.1 H (2.5-4.0) gm/dl Albumin/Globulin Ratio 0.5 L (0.9-2) Urine Color Yellow Urine Appearance Clear (Clear) Urine pH 7.0 (4.5-7.5) Ur Specific Burt 1.005 (1.000-1.030) Urine Protein Negative (Negative) Urine Glucose (UA) Negative (Negative) Urine Ketones Trace H (Negative) Urine Blood Negative (Negative) Urine Nitrite Negative (Negative) Urine Bilirubin Negative (Negative) Urine Urobilinogen Negative (Negative) Ur Leukocyte Esterase Negative (Negative) SARS-CoV-2, RNA, NAAT (NEGATIVE) 10/23/21 Range/Units Unknown WBC (4.8-10.8) K/uL RBC (4.2-5.4) M/uL Hgb (12.0-16.0) g/dL Hct (37-47) % MCV (80-100) fL MCH (25-34) pg MCHC (32-36) g/dL RDW Std Deviation (36.4-46.3) fL RDW Coeff of Matilde (11.5-14.5) % Plt Count (130-400) K/uL MPV (7.4-10.4) fL Immature Gran % (Auto) % Neut % (Auto) % Lymph % (Auto) % Ferry % (Auto) % Eos % (Auto) % Baso % (Auto) % Neut # (Auto) (1.4-6.5) K/uL Lymph # (Auto) (1.2-3.4) K/uL Ferry # (Auto) (0.11-0.59) K/uL Eos # (Auto) (0-0.5) K/uL Baso # (Auto) (0-0.2) K/uL Immature Gran # (Auto) (0.00-0.02) K/uL Sodium (136-145) mmol/L Potassium (3.5-5.1) mmol/L Chloride (98-107) mmol/L Carbon Dioxide (21-32) mmol/L Anion Gap (3-11) BUN (7-18) mg/dl Creatinine (0.6-1.2) mg/dl Est Cr Clr Drug Dosing ml/min Est GFR ( Amer) ml/min Est GFR (Non-Af Amer) ml/min BUN/Creatinine Ratio (10-20) Glucose (70-99) mg/dl Calcium (8.5-10.1) mg/dl Magnesium (1.8-2.4) mg/dl Total Bilirubin (0.2-1) mg/dl AST (15-37) U/L ALT (12-78) Alkaline Phosphatase (45-117) U/L Troponin I (0-0.045) ng/ml Total Protein (6.4-8.2) gm/dl Albumin (3.4-5.0) gm/dl Globulin (2.5-4.0) gm/dl Albumin/Globulin Ratio (0.9-2) Urine Color Urine Appearance (Clear) Urine pH (4.5-7.5) Ur Specific Burt (1.000-1.030) Urine Protein (Negative) Urine Glucose (UA) (Negative) Urine Ketones (Negative) Urine Blood (Negative) Urine Nitrite (Negative) Urine Bilirubin (Negative) Urine Urobilinogen (Negative) Ur Leukocyte Esterase (Negative) SARS-CoV-2, RNA, NAAT NEGATIVE (NEGATIVE) Administered Medications Diltiazem HCl 125 mg/ Dextrose 125 mls @ 5 mls/hr IV .Q24H [facility]; Protocol Stop: 11/22/21 11:59 Last Admin: 10/23/21 13:34 Dose: 10 mg/hr, 10 mls/hr Documented by: [id number] Cosigned by: [id number] Potassium Chloride (K Alex / Wtr) 10 meq in 100 mls @ 100 mls/hr IV ONE ONE; Protocol Stop: 10/23/21 15:49 Last Admin: 10/23/21 15:21 Dose: 100 mls/hr Documented by: [id number] Discontinued Medications Diltiazem HCl (Diltiazem Hcl 5 Mg/Ml 5 Ml Vial) 10 mg IV NOW STA Stop: 10/23/21 11:56 Last Admin: 10/23/21 12:50 Dose: 10 mg Documented by: [id number] Cosigned by: [id number] Furosemide (Furosemide 40 Mg/4 Ml Vial) 40 mg IV ONE ONE Stop: 10/23/21 11:56 Last Admin: 10/23/21 12:51 Dose: 40 mg Documented by: [id number] Miscellaneous (Stat Iv Infusion Titration Per Protocol) 1 ea N/A NOW STA Stop: 10/23/21 11:56 Last Admin: 10/23/21 13:34 Dose: 1 ea Documented by: [id number] Potassium Chloride (Potassium Chloride Crtab 20 Meq Tabcr) 40 meq PO NOW STA Stop: 10/23/21 11:56 Last Admin: 10/23/21 12:51 Dose: 40 meq Documented by: [id number] Discharge Plan Visit Data Chief Complaint: Cardiac Assessment ED Provider: John Fried Discharge Problem: Atrial fibrillation with RVR, Fluid overload, ROSS (dyspnea on exertion), Elevated troponin I level, Hypokalemia Patient Disposition: Being Evaluated by Hospitalist Forms Stand Alone Forms: [facility] Prescriptions Prescriptions: No Action estradiol [Vagifem] 10 mcg tablet 10 mcg PV 2XWK Qty: 24 RF: 2 thyroid (pork) [[place] Thyroid] 60 mg tablet 60 mg PO DAILY Qty: 90 RF: 3 ascorbate calcium (vitamin C) 500 mg tablet 500 mg PO DAILY Qty: 30 RF: 0 cholecalciferol (vitamin D3) 50 mcg/drop (2, 000 unit/drop) drops 8,000 unit PO DAILY Qty: 5 RF: 0 Zyrtec 10 mg capsule 10 mg PO DAILY PRN (Reason: allergy symptoms) Qty: 7 RF: 0 B-complex with vitamin C Capsule 1 cap PO DAILY Qty: 30 RF: 0 digestive enzymes Capsule 1 cap PO DAILY Qty: 30 RF: 0 vitamin E 200 unit capsule 200 unit PO DAILY Qty: 30 RF: 0 coenzyme Q10 [CoQ-10] 30 mg capsule 30 mg PO DAILY Qty: 30 RF: 0 selenium 200 mcg capsule 200 mcg PO DAILY Qty: 30 RF: 0 biotin 1 mg capsule 1 mg PO DAILY Qty: 30 RF: 2 albuterol sulfate [Proventil HFA] 90 mcg/actuation HFA aerosol inhaler 2 puff inhalation Q6H PRN (Reason: shortness of breath or wheezing) Qty: 6.7 RF: 5 organ concentrates 80 mg capsule 0 mg PO UD RF: 0 epinephrine 0.3 mg/0.3 mL auto-injector 0.3 mg IM ONCE PRN (Reason: anaphylaxis) Qty: 1 RF: 0 vitamin B complex [B Complex-Vitamin B12] tablet 1 tab PO DAILY RF: 0 tretinoin 0.1 % cream 1 applic topical HS PRN (Reason: flare ups) Qty: 1 RF: 0 calcium citrate-vitamin D3 [Citracal + D Maximum] 315 mg-6.25 mcg (250 unit) tablet 1 tab PO TID RF: 0 cyanocobalamin (vitamin B-12) 100 mcg tablet 100 mcg PO WK RF: 0 Restasis 0.05 % dropperette 1 drp ophthalmic (eye) Q12H RF: 0 Allergy Drops 1 drp sublingual TID RF: 0 Pataday Once Daily Relief 0.7 % Drops 1 drp OPHTHALMIC (EYE) DAILY RF: 0 Dessaicrated Adrenal Supp 1 - 18 tab PO DAILY RF: 0 Drenatrophin 1 tab PO TID RF: 0 Thytrophin 4 cap PO UD RF: 0 blue-green algae (Spirulina) 500 mg tablet 0 mg PO QID RF: 0 mupirocin 2 % ointment 1 applic topical TID PRN (Reason: ..) RF: 0 Saccharomyces boulardii [Florastor] 250 mg capsule 500 mg PO TID RF: 0 Referrals Referrals: Zuleika Mclain MD [Primary Care Provider] -
[2021-10-23 12:41] LABS: Basophils # (auto) 0.03 K/uL (0-0.2); Basophils % (auto) 0.3 %; Eosinophils # (auto) 0.08 K/uL (0-0.5); Eosinophils % (auto) 0.9 %; Hematocrit (blood only) 42.1 % (37-47); Hemoglobin 13.8 g/dL (12.0-16.0); Immature Granulocytes # (auto) 0.08 K/uL (0.00-0.02); Immature Granulocytes % (auto) 0.9 %; Lymphocytes # (auto) 1.16 K/uL (1.2-3.4); Mean Corpuscular Hemoglobin 30.9 pg (25-34); Mean Corpuscular Hgb Conc 32.8 g/dL (32-36); Mean Corpuscular Volume 94.4 fL (80-100); Mean Platelet Volume 9.7 fL (7.4-10.4); Monocytes # (auto) 0.65 K/uL (0.11-0.59); Monocytes % (auto) 7.3 %; Neutrophils % (auto) 77.6 %; Platelet Count 351 K/uL (130-400); RDW Standard Deviation 48.1 fL (36.4-46.3); Red Blood Count 4.46 M/uL (4.2-5.4)
[2021-10-23 12:45] LABS: Appearance Urine Clear (Clear); Bilirubin Urine Negative (Negative); Blood Urine Negative (Negative); Color Urine Yellow; Glucose Urine UA Negative (Negative); Ketones Urine Trace (Negative); Leukocyte Esterase Urine Negative (Negative); Nitrite Urine Negative (Negative); Protein Urine Negative (Negative); Specific Gravity Urine 1.005 (1.000-1.030); Urobilinogen Urine Negative (Negative)
[2021-10-23 13:02] LABS: Albumin Level 2.7 gm/dl (3.4-5.0); BUN Creatinine Ratio 14.4 (10-20); Calcium 8.9 mg/dl (8.5-10.1); Creatinine Clr Calc Pharmacy 79.5 ml/min; Est GFR (African American) 84.7 ml/min; Est GFR (Non-African American) 73.1 ml/min; Magnesium 2.5 mg/dl (1.8-2.4); Potassium 3.1 mmol/L (3.5-5.1)
[2021-10-23 13:29] LABS: Albumin Globulin Ratio 0.5 (0.9-2); Bilirubin,Total 0.5 mg/dl (0.2-1); Globulin 5.1 gm/dl (2.5-4.0); Total Protein 7.8 gm/dl (6.4-8.2); Troponin I 0.081 ng/ml (0-0.045)
[2021-10-23] MEDS: dilTIAZem HCL 125 MG in DEXTROSE 5% 100 ML IV SCH (13:34)
[2021-10-23] MEDS ORDERED: Heparin IV Adult Wt-Based Low-Dose WITH Bolus Protocol IV STA (13:34)
[2021-10-23] MEDS ORDERED: HEPARIN SOD (PORCINE) 1000 UNIT/ML IV ONE (13:50)
[2021-10-23] MEDS ORDERED: HEPARIN SODIUM/DEXTROSE 25,000 UNITS/500 ML BAG IV SCH (14:00)
--- NOTE | 2021-10-23 14:41 | History & Physical Report ---
Date of Service October 23, 2021 Assessment & Plan (1) Atrial fibrillation with RVR: Plan: Due to the patient's clinical presentation, labs, and imaging she will be admitted to the hospital proceeding as follows: Due to her cardiac rhythm she will be placed on a telemetry unit We will trend her cardiac enzymes and EKGs We will maintain the patient on Cardizem drip which was initiated by the treating emergency room physician for rate control We will maintain the patient on a heparin drip for anticoagulation which was initiated by the treating emergency room physician We will follow serial labs We will correct her hypokalemia We will check an echocardiogram Due to the patient's noted edema and chest x-ray findings I will provide gentle diuresis with a dose of Lasix, 20 mg x 1 We will consult her product safety compliance leader Dr. Benton for further recommendation Additional recommendations be forthcoming based on her clinical course as unfolds as well as recommendations by cardiology As the patient is on heparin drip no further DVT prevention measures are requi red I discussed CODE STATUS with the patient and she notes an event of cardiopulmonary arrest she wishes to be a level 1 full code (2) Hypothyroidism: (3) Hypokalemia: (4) Elevated troponin: (5) Adrenal insufficiency: Plan: As the patient reports a history of adrenal insufficiency that is self treated I will check a random cortisol level with further action based on the results of this test Plan: Patient seen and examined, chart reviewed, case discussed with Malick Su PA-C and I agree with the assessment and plan as above except as otherwise noted General: A&Ox3. NAD. Cooperative. HEENT: Atraumatic, normocephalic. Visual acuity/hearing intact. Pulm: CTAB A&P. -wheezes, -rales, -rhonchi. Symmetrical chest rise. No increase work of breathing. No respiratory distress. Cardiac:irregularly irregular, tachycardic. Radial pulses intact and symmetrical . Abdominal: Nontender, nondistended, soft. BS present. Ext: Warm, dry, neurovascularly intact with bilateral symmetrical sensation to soft touch. Ankle dorsiflexion/plantarflexion 5/5 bilaterally. +pedal edema. All labs and images reviewed Deidra is a 71-year-old female who presents with A. fib with RVR. Of note she reports that she has had a history of adrenal insufficiency which has not been followed with lab levels or by an outpatient physician, but for which she takes desiccated bovine adrenal gland which she titrates to fatigue. She is evidence on admission of A. fib with RVR and some rate related failure, and demand ischemia. TTE pending, troponins trended, continues on Cardizem drip for rate control. Heparin drip for anticoagulation given patient's history of reported adrenal insufficiency and hypothyroidism, cortisol, TSH, and fT4 pending. Remaining supplements held on admission, discussed with patient. Replete electrolytes to K goal 4.0 and Mg goal 2.0 History of Present Illness Chief Complaint: "I have not been feeling well for several days" Primary Care Provider: Zuleika Mclain MD This is a 71-year-old female who presented to the emergency department secondary to generally not feeling since October 11 of this year well along with palpitations. Patient notes that she generally is a very active lifestyle working out at the gym several times per week. Prior to October 11 the patient was able to m aintain her usual level of activity and exercise and specifically notes she has not noted any decreased exercise capacity. Patient notes that sometime around October 11 she started to not feel well. Patient notes that she was running low-grade temperatures of 100.5 and was noted to have a rash on her arms and legs. In addition the patient notes that she has had a dry mouth along with some generalized fatigue and noted that her ankles and feet became swollen. She has noted a decreased appetite but denies any abdominal pain or nausea vomiting. In addition to the symptoms patient does note some dyspnea on exertion that began along with 2 pillow orthopnea. She does use a CPAP machine at home and she reports compliance with it. Patient presented to the emergency department today secondary to the above symptoms along with palpitations. She denied any syncope or presyncope. She also denies any chest pain. She reports taking her blood pressure at home which was approximately 100-105 systolic which is low for her. The patient further relates that when her symptoms first started she was seen by her primary care team. At this time the patient also noted that she had a rash on her arms and legs. She noted there is concern on the part of her primary care team that she may have had a rickettsial infection but she denies any insect, tick, or spider bites. Although there was concern for potential rickettsial disease, the patient's primary care team also entertain the idea that this could have been due to some type of viral exanthem. Patient says that she was treated with a combination of prednisone as well as doxycycline and her symptomatology concerning her rash improved. In addition, the patient was checked for Lyme disease, influenza AMB, and COVID-19all of which were negative on October 16 and . As noted the patient presented to the emergency department. Today she had labs which I independently reviewed including a CBC where her white blood cell count, hemoglobin, hematocrit, platelet count are all within normal range. A chemistry profile showed her sodium, BUN, and creatinine were within normal range. Her potassium is low at 3.1. Magnesium was noted to be elevated at 2.5. Cardiac enzymes were checked and her troponin was elevated at 0.081. A Covid test was performed and was noted to be negative. A urinalysis was checked and was not indicative of ischemia. An EKG was performed that showed a cardiac rhythm that appeared to be atrial fibrillation with a heart rate of approximate 114. Nonspecific T wave abnormalities were noted. Patient had a chest x-ray on 10/22/2021 that showed small bilateral pleural effusions. Patient's records were reviewed and is no over the mention that she follows with Dr. Benton for cardiology purposes. Patient has had a stress echocardiogram in June 2020 that was negative for ischemia. Patient is known to have a dilated ascending aorta as well as moderate mitral regurgitation. In addition the patient notes that she self treats herself for adrenal insufficiency with an [id number] supplement. Patient notes that she is essentially a lifelong non-smoker (she did try smoking cigars when she was in college). She also notes that she rarely consumes caffeinated beverages. At the time of my interview the patient was resting comfortably in bed and she was in no distress. Allergies Allergy/AdvReac Type Severity Reaction Status Date / Time clavulanic acid Allergy Mild Verified 10/23/21 09:37 corn Allergy Mild DIARRHEA Verified 10/23/21 09:37 nitrofurantoin Allergy Mild Verified 10/23/21 09:37 Penicillins Allergy Mild Verified 10/23/21 09:37 Sulfa (Sulfonamide Allergy Mild UNKNOWN Verified 10/23/21 09:37 Antibiotics) gluten Allergy Unknown GI UPSET Verified 10/23/21 09:37 milk Allergy Unknown . Verified 10/23/21 09:37 soy Allergy Unknown . Verified 10/23/21 09:37 adhesive tape Allergy Verified 10/23/21 09:37 amoxicillin Allergy Verified 10/23/21 09:37 apple Allergy Verified 10/23/21 09:37 cat dander Allergy Verified 10/23/21 09:37 dog dander Allergy Verified 10/23/21 09:37 grass pollen Allergy Verified 10/23/21 09:37 house dust mite Allergy Verified 10/23/21 09:37 lactase [From Dairy Aid] Allergy Verified 10/23/21 09:37 latex Allergy Verified 10/23/21 09:37 mold Allergy Verified 10/23/21 09:37 pneumococcal vaccine Allergy Verified 10/23/21 09:37 [From Pneumovax 23] pollen extracts Allergy Verified 10/23/21 09:37 ragweed pollen Allergy Verified 10/23/21 09:37 tree and shrub pollen Allergy Verified 10/23/21 09:37 Home Medications Medication Instructions Recorded Confirmed Type epinephrine 0.3 mg/0.3 mL 0.3 mg IM ONCE PRN #1 ea 05/13/19 10/23/21 History injection, auto-injector organ concentrates 80 mg capsule 0 mg PO UD cap 05/13/19 10/23/21 History vitamin B complex (B 1 tab PO DAILY 05/13/19 10/23/21 History Complex-Vitamin B12) estradiol 10 mcg vaginal tablet 10 mcg PV 2XWK #24 tab 11/20/20 10/23/21 Rx (Vagifem) cyanocobalamin (vitamin B-12) 100 100 mcg PO WK tab 12/11/20 10/23/21 History mcg tablet tretinoin 0.1 % topical cream 1 applic TOPICAL HS PRN #1 gm 12/11/20 10/23/21 History cyclosporine 0.05 % eye drops in a 1 drp OPHTHALMIC (EYE) Q12H 02/27/21 10/23/21 History dropperette (Restasis) thyroid (pork) 60 mg tablet 60 mg PO DAILY #90 tab 03/12/21 10/23/21 Rx (Bunola Thyroid) calcium citrate 315 mg 1 tab PO TID tab 09/07/21 10/23/21 History calcium-vitamin D3 6.25 mcg (250 unit) tablet (Citracal + Vitamin D Maximum) B-complex with vitamin C 1 cap PO DAILY #30 cap 09/18/21 10/23/21 Rx ascorbate calcium (vitamin C) 500 500 mg PO DAILY #30 tab 09/18/21 10/23/21 Rx mg tablet biotin 1 mg capsule 1 mg PO DAILY #30 cap 09/18/21 10/23/21 Rx cetirizine 10 mg capsule (Zyrtec) 10 mg PO DAILY PRN #7 cap 09/18/21 10/23/21 Rx cholecalciferol (vitamin D3) 8,000 unit PO DAILY #5 ml 09/18/21 10/23/21 Rx coenzyme Q10 30 mg capsule (CoQ-10) 30 mg PO DAILY #30 cap 09/18/21 10/23/21 Rx digestive enzymes 1 cap PO DAILY #30 cap 09/18/21 10/23/21 Rx selenium 200 mcg capsule 200 mcg PO DAILY #30 cap 09/18/21 10/23/21 Rx vitamin E 200 unit capsule 200 unit PO DAILY #30 cap 09/18/21 10/23/21 Rx Proventil HFA 90 mcg/actuation 2 puff INHALATION Q6H PRN #6.7 gm 10/15/21 10/23/21 Rx aerosol inhaler (albuterol sulfate) NS Allergy Drops 1 drp SUBLINGUAL TID 10/23/21 10/23/21 History Dessaicrated Adrenal Supp 1 - 18 tab PO DAILY 10/23/21 10/23/21 History Drenatrophin 1 tab PO TID 10/23/21 10/23/21 History Saccharomyces boulardii 250 mg 500 mg PO TID 10/23/21 10/23/21 History capsule (Florastor) Thytrophin 4 cap PO UD 10/23/21 10/23/21 History blue-green algae (Spirulina) 500 0 mg PO QID 10/23/21 10/23/21 History mg tablet mupirocin 2 % topical ointment 1 applic TOPICAL TID PRN 10/23/21 10/23/21 History olopatadine 0.7 % eye drops 1 drp OPHTHALMIC (EYE) DAILY 10/23/21 10/23/21 History (Pataday Once Daily Relief) Past Med/Surg History Medical History Ascending aorta dilatation Bilateral leg edema Bronchospasm Dermatochalasis Dysplastic nevus Gluten enteropathy Yehuda's thyroiditis History of basal cell carcinoma History of cold sores Hypoglycemia Left hip pain Mitral regurgitation Pernicious anemia Prolapse of female pelvic organs Severe obstructive sleep apnea Tubular adenoma of colon Surgical History History of appendectomy History of blepharoplasty History of oral surgery tooth extraction History of tonsillectomy Status post excisional biopsy skin cancer-2013 Family History Father Alcoholism Brain tumor Environmental allergies Hypertension Mother Dementia Skin cancer Family history of deafness and hearing loss Mitral valve prolapse Other No family history of bleeding disorder Denies family history of Ovarian cancer Prostate cancer Myocardial infarction Breast cancer Colorectal cancer Social History Smoking Status: Never smoker Second Hand Exposure: No; Hx Alcohol Use: No Hx Substance Use: No Preferred Language: Albanian Communication Ability: Effective Visual Impairment: Limited Hearing Ability: Normal A&P Technician Required: No Beliefs That Will Affect Care: None marital status: marital status details: x 2 Current Living Situation: Alone current occupational status: retired 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 How many Children do You have: 1 Feels Safe at Home: Yes Childhood Exposure to Second-Hand Smoke: Yes caffeine: Yes (chocolate ) Dental Care, Regularly: Yes Physical Activity Frequency: 3-4 Times per Week Seatbelt Use: always Sunscreen Use: Yes Assistive Devices: Glasses Review of Systems Constitutional: + fever, + fatigue, + weakness and + anorexia; no chills Eyes: no diplopia Ear, Nose, Mouth, Throat: + dry mouth; no ear pain Respiratory: + dyspnea and + dyspnea on exertion; no cough Cardiovascular: + dyspnea on exertion, + orthopnea, + palpitations and + edema; no chest pain and no syncope Gastrointestinal: no abdominal pain, no nausea and no vomiting Genitourinary: no dysuria Musculoskeletal: no back pain Integumentary: as per Subjective / HPI and + rash (Resolved) Neurologic: + generalized weakness Physical Exam Constitutional: well developed and well nourished; no acute distress Eyes: no conjunctival abnormality ENMT: Ears: no hearing impairment Mouth: no oropharynx abnormality Neck: trachea midline Respiratory: normal respiratory effort; no respiratory distress and no labored breathing Occasional crackles noted at the bases bilaterally Cardiovascular: Rate/Rhythm: + irregularly irregular Gastrointestinal (Abdomen): Soft, nontender, nondistended Musculoskeletal: No calf tenderness. There is bilateral lower extremity edema noted. Skin: no rashes Neurologic: moves all extremities Psychiatric: A+Ox3, euthymic affect Results & Data Results & Data ([facility]) Vital Signs (Past 12 Hours) Vital Signs Temp Pulse Resp BP Pulse Ox 10/23/21 11:38 37 C 118 H 18 124/93 97 PG Care Time/CCT Total # of Minutes Spent Total Time Spent with Patient: Total time spent is greater than 50% in coordination of care (as documented) at patient's floor/unit and/or counseling patient: Coding Level of Care Code 85027 Initial Inpt Care Lvl 3 Diagnoses Atrial fibrillation with RVR I48.91 Hypothyroidism E03.9 Hypokalemia E87.6 Elevated troponin R77.8 Adrenal insufficiency E27.40
[2021-10-23] MEDS ORDERED: POTASSIUM CHLORIDE / WTR 10 MEQ/100 ML PLCT IV ONE (14:50)
[2021-10-23] MEDS ORDERED: HEPARIN SOD (PORCINE) 1000 UNIT/ML ONE (16:33)
--- NOTE | 2021-10-23 16:33 | XCELERA ---
[id number]
[2021-10-23 17:09] LABS: Partial Thromboplastin Time 26.3 Seconds (21.0-31.0)
--- NOTE | 2021-10-23 17:55 | Electrocardiogram Report ---
Test Reason : Blood Pressure : / mmHG Vent. Rate : 114 BPM Atrial Rate : 131 BPM P-R Int : 000 ms QRS Dur : 088 ms QT Int : 290 ms P-R-T Axes : 000 -57 074 degrees QTc Int : 399 ms Atrial fibrllation Incomplete right bundle branch block Left anterior fascicular block Nonspecific T wave abnormality Abnormal ECG Confirmed by Gonzalez Ventura ([id number]) on 10/23/2021 5:54:46 PM Referred By: Confirmed By:Adarsh Ventura
[2021-10-23] MEDS ORDERED: NON-FORMULARY MEDICATION (Mupirocin 2 % ointment) TOP PRN (19:02)
[2021-10-23] MEDS ORDERED: ALBUTEROL HFA 8 GM INHALER INH PRN (19:02)
[2021-10-23] MEDS ORDERED: ONDANSETRON INJ 2 MG/ML 2 ML VIAL IV PRN (19:02)
[2021-10-23] MEDS ORDERED: ACETAMINOPHEN 325 MG TAB PO PRN (19:02)
[2021-10-23] MEDS ORDERED: CYANOCOBALAMIN (VITAMIN B-12) 100 MCG TABLET PO SCH (19:02)
[2021-10-23] MEDS ORDERED: [UNRECOGNIZED DRUG - OTHER] PO SCH (19:02)
[2021-10-23] MEDS ORDERED: PSYLLIUM 58.6% POWDER PACKET PO PRN (19:02)
[2021-10-23] MEDS ORDERED: ESTRADIOL 10 MCG PV SCH (19:02)
[2021-10-23] MEDS ORDERED: [UNRECOGNIZED DRUG - OTHER] PO SCH (19:02)
[2021-10-23] MEDS ORDERED: CETIRIZINE HCL 10 MG TABLET PO PRN (19:16)
[2021-10-23] MEDS ORDERED: EPINEPHrine INJ 1 MG/ML AMP IM PRN (19:23)
[2021-10-23 19:34] LABS: Creatine Kinase MB 1.8 ng/ml (0.5-3.6); Troponin I 0.106 ng/ml (0-0.045)
[2021-10-23] MEDS ORDERED: CALCIUM CITRATE 950 MG TAB PO SCH (21:00)
[2021-10-23] MEDS ORDERED: [UNRECOGNIZED DRUG - REMARK] SL SCH (21:00)
[2021-10-23] MEDS ORDERED: [UNRECOGNIZED DRUG - OTHER] PO SCH (21:00)
[2021-10-23] MEDS ORDERED: SACCHAROMYCES BOULARDII 250 MG CAP PO SCH (21:00)
[2021-10-23 23:07] LABS: Partial Thromboplastin Ratio 1.2; Partial Thromboplastin Time 30.4 Seconds (21.0-31.0)
[2021-10-24] MEDS ORDERED: HEPARIN IV BOLUS 4,500 UNITS in SYRINGE 0 ML IV ONE (00:07)
[2021-10-24 00:30] LABS: Basophils # (auto) 0.02 K/uL (0-0.2); Basophils % (auto) 0.2 %; Eosinophils # (auto) 0.08 K/uL (0-0.5); Eosinophils % (auto) 0.9 %; Hematocrit (blood only) 39.9 % (37-47); Hemoglobin 13.1 g/dL (12.0-16.0); Immature Granulocytes # (auto) 0.04 K/uL (0.00-0.02); Immature Granulocytes % (auto) 0.4 %; Lymphocytes # (auto) 1.58 K/uL (1.2-3.4); Lymphocytes % (auto) 17.6 %; Mean Corpuscular Hemoglobin 31.3 pg (25-34); Mean Corpuscular Hgb Conc 32.8 g/dL (32-36); Mean Corpuscular Volume 95.2 fL (80-100); Mean Platelet Volume 9.5 fL (7.4-10.4); Monocytes # (auto) 1.22 K/uL (0.11-0.59); Monocytes % (auto) 13.6 %; Neutrophils # (auto) 6.02 K/uL (1.4-6.5); Neutrophils % (auto) 67.3 %; Platelet Count 352 K/uL (130-400); RDW Coefficient of Variation 14.2 % (11.5-14.5); RDW Standard Deviation 49.6 fL (36.4-46.3); Red Blood Count 4.19 M/uL (4.2-5.4); White Blood Count 8.96 K/uL (4.8-10.8)
[2021-10-24] MEDS: dilTIAZem HCL 125 MG in DEXTROSE 5% 100 ML IV SCH (00:31)
[2021-10-24 00:46] LABS: BUN Creatinine Ratio 15.3 (10-20); Blood Urea Nitrogen 14 mg/dl (7-18); Calcium 8.2 mg/dl (8.5-10.1); Carbon Dioxide 27 mmol/L (21-32); Chloride 104 mmol/L (98-107); Creatinine Clr Calc Pharmacy 70.8 ml/min; Est GFR (African American) 73.6 ml/min; Est GFR (Non-African American) 63.5 ml/min; Glucose 111 mg/dl (70-99); Potassium 3.5 mmol/L (3.5-5.1); Sodium 137 mmol/L (136-145)
[2021-10-24 00:55] LABS: Creatine Kinase MB 1.8 ng/ml (0.5-3.6); Troponin I 0.114 ng/ml (0-0.045)
[2021-10-24 07:06] LABS: Partial Thromboplastin Ratio 1.6; Partial Thromboplastin Time 42.8 Seconds (21.0-31.0)
[2021-10-24 07:34] LABS: T4 Free Thyroxine 1.44 ng/dl (0.8-1.6); Thyroid Stimulating Hormone 2.34 uIu/ml (0.300-4.500)
[2021-10-24] MEDS ORDERED: ASPIRIN 81 MG ECTAB PO SCH (09:00)
[2021-10-24] MEDS ORDERED: OLOPATADINE 0.7% OP SCH (09:00)
[2021-10-24] MEDS ORDERED: ASCORBIC ACID 500 MG TAB PO SCH (09:00)
[2021-10-24] MEDS ORDERED: NON-FORMULARY MEDICATION (Biotin 1 mg capsule) PO SCH (09:00)
[2021-10-24] MEDS ORDERED: VITAMIN B COMPLEX PO SCH (09:00)
[2021-10-24] MEDS ORDERED: VITAMIN B COMPLEX TAB PO SCH (09:00)
[2021-10-24] MEDS ORDERED: CHOLECALCIFEROL 1,000 UNITS 25 MCG TAB PO SCH (09:00)
[2021-10-24] MEDS ORDERED: ARMOUR THYROID 30 MG TAB PO SCH (09:00)
[2021-10-24] MEDS ORDERED: TOCOPHERYL, DL-ALPHA 100 UNITS CAP PO SCH (09:00)
[2021-10-24] MEDS ORDERED: COENZYME Q10 30 MG PO SCH (09:00)
[2021-10-24] MEDS ORDERED: METOPROLOL TARTRATE 25 MG TAB PO SCH (09:15)
--- NOTE | 2021-10-24 09:17 | Cardiology Consultation ---
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 She was seen by her PCP for her symptoms (by virtual visit on 10/16/2021 and 10/18/2021). COVID-19 and influenza were both tested and both negative on 10/16/2021. Lyme titer was negative 10/17/2021. CMP and CBC 10/17/2021 revealed mild transaminitis and low potassium. Repeat labs on 10/22/2021 revealed mildly elevated WBC and hypokalemia with serum potassium of 3.1 mmol/L, however elevated LFTs had resolved. She was suspected to have a viral syndrome with an exanthem vs Santa Claus Spotted Fever contributing to her symptoms and laboratory abnormalities. She was initially started on Prednisone for 4 days then discontinued due to progressive swelling in her legs. She was started on empiric Doxycycline on 10/18/21, but had no improvement so she stopped it as of 10/22/21. Her fevers apparently improved but she continued taking Ibuprofen. Her home pulse oximetry had been running in the low 90s and on 10/23/21 it was 94%. Her rash subsequently resolved as well. As of 10/23/21 the patient was still experiencing SOB -- both at rest but much more so with exertion such as walking up stairs. Patient admits to having a sensation of palpitations for several days leading up to this admission. EKG done by her PCP 10/23/21 showed A-Fib with RVR and she had evidence of pulmonary edema on examination. She was advised by her PCP to come to the ER for further evaluation and treatment. In the ER the patient was started on IV Diltiazem drip for rate control, and IV Heparin for anticoagulation -- and she is still on these medications. Her potassium has been replaced, and she received a dose of Lasix 20 mg x 1. Subsequently admitted for further treatment. At this point, she is still in atrial fibrillation at a rate approximately 100 beats per minute at rest and her shortness of breath has improved. Patient denies any chest discomfort or anginal chest pain, does not have any evidence of heart failure currently, and has not had any symptoms suggestive of stroke or mini stroke. Her initial Troponin I was elevated at 0.081 and trended to 0.106 and 0.114 ng/mL -- which are likely elevated due to AFib with RVR and demand ischemia.. We had a long discussion today regarding what atrial fibrillation is, the natural history of atrial fibrillation, and we discussed management strategies. Patient verbalized understanding of these discussions. We discussed the risk of thromboembolic phenomena and strokes associated with atrial fibrillation. We also discussed the importance rate control. Her echocardiogram showed normal LV size and systolic function LVEF 60% to 65% with normal wall motion, mild concentric LVH, moderate mitral regurgitation and normal left atrial dimensions. These results were reviewed in detail. Her [id number] is 2 based on her age and gender. 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 The exact onset of her atrial fibrillation is not known and therefore we recommend rate control and anticoagulation strategy over the next 3.5-4 weeks before pursuing cardioversion. Recommend the followin. Stop Heparin drip. 2. Convert to Xarelto 20 mg daily (her CrCl is 85.04 mL/min). 3. Continue beta john, convert to Metoprolol Succinate ER at discharge. 4. Consider oral Diltiazem CD in addition to her beta john for rate control. 5. Follow-up with [facility] in 3.5 to 4 weeks, can arrange for cardioversion if she is still in A-Fib at that time. (2) Elevated troponin I level: -- Likely secondary to A-Fib with RVR, myocardial O2 supply/demand mismatch. -- She has not experienced any angina pectoris or anginal equivalent symptoms. -- Echocardiogram 10/23/21 shows normal LV wall motion and systolic function. -- No further ischemic work up is necessary at this time. (3) ROSS (dyspnea on exertion): -- Likely secondary to A-Fib with RVR. -- This has improved with improved rate control. (4) Hypokalemia: -- Serum K was 3.1 mmol/L on admission. -- She received supplemental potassium and hypokalemia resolved. (5) Ascending aorta dilatation: -- Stable on serial Echocardiograms, most recent echo was 10/23/21. -- Continue to monitor. History of Present Illness Reason for Consultation: -- Newly Diagnosed Atrial Fibrillation with RVR. Requesting Physician: Christ Alejandro DO Attending Physician: Jet Benton MD. 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 Patient states that she developed afever, fatigue, rash, and SOB on approximately 10/11/21. She was seen by her PCP (by virtual visit on 10/16/2021 and 10/18/2021). COVID-19 and influenza were both tested and both negative on 10/16/2021. Lyme titer was negative 10/17/2021. CMP and CBC 10/17/2021 revealed mild transaminitis and low potassium. Repeat labs on 10/22/2021 revealed mildly elevated WBC and hypokalemia with serum potassium of 3.1 mmol/L, however elevated LFTs had resolved. She was suspected to have a viral syndrome with an exanthem vs Santa Claus Spotted Fever contributing to her symptoms and laboratory abnormalities. She was initially started on Prednisone for 4 days then discontinued due to progressive swelling in her legs. She was started on empiric Doxycycline on 10/18/21, but had no improvement so she stopped it as of 10/22/21. Her fevers apparently improved but she continued taking Ibuprofen. Her home pulse oximetry had been running in the low 90s and on 10/23/21 it was 94%. Her rash subseq uently resolved as well. As of 10/23/21 the patient was still experiencing SOB -- both at rest but much more so with exertion such as walking up stairs. Patient admits to having a sensation of palpitations for several days leading up to this admission. EKG done by her PCP 10/23/21 showed A-Fib with RVR and she had evidence of pulmonary edema on examination. She was advised by her PCP to come to the ER for further evaluation and treatment. Patient was started on IV Diltiazem drip for rate control, and IV heparin for anticoagulation. Her potassium has been replaced, and she received a dose of Lasix 20 mg x 1. At this point, she is still in atrial fibrillation at a rate approximately 100 beats per minute at rest and her shortness of breath has improved. ECHOCARDIOGRAM 10/23/21: -- Normal LV size, wall motion, and systolic function. -- LVEF 60% to 65%. -- Mild concentric LVH. -- Moderate mitral regurgitation. -- Normal left atrial dimensions, right atrium was not well visualized. -- RVSP is elevated at 30 to 40 mmHg. -- Mildly dilated ascending aorta. -- Small pericardial effusion. Allergies Allergy/AdvReac Type Severity Reaction Status Date / Time clavulanic acid Allergy Mild Verified 10/23/21 09:37 corn Allergy Mild DIARRHEA Verified 10/23/21 09:37 nitrofurantoin Allergy Mild Verified 10/23/21 09:37 Penicillins Allergy Mild Verified 10/23/21 09:37 Sulfa (Sulfonamide Allergy Mild UNKNOWN Verified 10/23/21 09:37 Antibiotics) gluten Allergy Unknown GI UPSET Verified 10/23/21 09:37 milk Allergy Unknown . Verified 10/23/21 09:37 soy Allergy Unknown . Verified 10/23/21 09:37 adhesive tape Allergy Verified 10/23/21 09:37 amoxicillin Allergy Verified 10/23/21 09:37 apple Allergy Verified 10/23/21 09:37 cat dander Allergy Verified 10/23/21 09:37 dog dander Allergy Verified 10/23/21 09:37 grass pollen Allergy Verified 10/23/21 09:37 house dust mite Allergy Verified 10/23/21 09:37 lactase [From Dairy Aid] Allergy Verified 10/23/21 09:37 latex Allergy Verified 10/23/21 09:37 mold Allergy Verified 10/23/21 09:37 pneumococcal vaccine Allergy Verified 10/23/21 09:37 [From Pneumovax 23] pollen extracts Allergy Verified 10/23/21 09:37 ragweed pollen Allergy Verified 10/23/21 09:37 tree and shrub pollen Allergy Verified 10/23/21 09:37 Home Medications Medication Instructions Recorded Confirmed Type epinephrine 0.3 mg/0.3 mL 0.3 mg IM ONCE PRN #1 ea 05/13/19 10/23/21 History injection, auto-injector organ concentrates 80 mg capsule 0 mg PO UD cap 05/13/19 10/23/21 History vitamin B complex (B 1 tab PO DAILY 05/13/19 10/23/21 History Complex-Vitamin B12) estradiol 10 mcg vaginal tablet 10 mcg PV 2XWK #24 tab 11/20/20 10/23/21 Rx (Vagifem) cyanocobalamin (vitamin B-12) 100 100 mcg PO WK tab 12/11/20 10/23/21 History mcg tablet tretinoin 0.1 % topical cream 1 applic TOPICAL HS PRN #1 gm 12/11/20 10/23/21 History cyclosporine 0.05 % eye drops in a 1 drp OPHTHALMIC (EYE) Q12H 02/27/21 10/23/21 History dropperette (Restasis) thyroid (pork) 60 mg tablet 60 mg PO DAILY #90 tab 03/12/21 10/23/21 Rx (Anvik Thyroid) calcium citrate 315 mg 1 tab PO TID tab 09/07/21 10/23/21 History calcium-vitamin D3 6.25 mcg (250 unit) tablet (Citracal + Vitamin D Maximum) B-complex with vitamin C 1 cap PO DAILY #30 cap 09/18/21 10/23/21 Rx ascorbate calcium (vitamin C) 500 500 mg PO DAILY #30 tab 09/18/21 10/23/21 Rx mg tablet biotin 1 mg capsule 1 mg PO DAILY #30 cap 09/18/21 10/23/21 Rx cetirizine 10 mg capsule (Zyrtec) 10 mg PO DAILY PRN #7 cap 09/18/21 10/23/21 Rx cholecalciferol (vitamin D3) 8,000 unit PO DAILY #5 ml 09/18/21 10/23/21 Rx coenzyme Q10 30 mg capsule (CoQ-10) 30 mg PO DAILY #30 cap 09/18/21 10/23/21 Rx digestive enzymes 1 cap PO DAILY #30 cap 09/18/21 10/23/21 Rx selenium 200 mcg capsule 200 mcg PO DAILY #30 cap 09/18/21 10/23/21 Rx vitamin E 200 unit capsule 200 unit PO DAILY #30 cap 09/18/21 10/23/21 Rx Proventil HFA 90 mcg/actuation 2 puff INHALATION Q6H PRN #6.7 gm 10/15/21 10/23/21 Rx aerosol inhaler (albuterol sulfate) NS Allergy Drops 1 drp SUBLINGUAL TID 10/23/21 10/23/21 History Dessaicrated Adrenal Supp 1 - 18 tab PO DAILY 10/23/21 10/23/21 History Drenatrophin 1 tab PO TID 10/23/21 10/23/21 History Saccharomyces boulardii 250 mg 500 mg PO TID 10/23/21 10/23/21 History capsule (Florastor) Thytrophin 4 cap PO UD 10/23/21 10/23/21 History blue-green algae (Spirulina) 500 0 mg PO QID 10/23/21 10/23/21 History mg tablet mupirocin 2 % topical ointment 1 applic TOPICAL TID PRN 10/23/21 10/23/21 Hi story olopatadine 0.7 % eye drops 1 drp OPHTHALMIC (EYE) DAILY 10/23/21 10/23/21 History (Pataday Once Daily Relief) Patient History Medical History Ascending aorta dilatation Bilateral leg edema Bronchospasm Dermatochalasis Dysplastic nevus Gluten enteropathy Yehuda's thyroiditis History of basal cell carcinoma History of cold sores Hypoglycemia Left hip pain Mitral regurgitation Pernicious anemia Prolapse of female pelvic organs Severe obstructive sleep apnea Tubular adenoma of colon Surgical History History of appendectomy History of blepharoplasty History of oral surgery tooth extraction History of tonsillectomy Status post excisional biopsy skin cancer-2013 Family History Father Alcoholism Brain tumor Environmental allergies Hypertension Mother Dementia Skin cancer Family history of deafness and hearing loss Mitral valve prolapse Other No family history of bleeding disorder Denies family history of Ovarian cancer Prostate cancer Myocardial infarction Breast cancer Colorectal cancer Social History Smoking Status: Never smoker Second Hand Exposure: No; Hx Alcohol Use: No Hx Substance Use: No Preferred Language: Malay Communication Ability: Effective Visual Impairment: Limited Hearing Ability: Normal Radio Survey Worker Required: No Beliefs That Will Affect Care: None marital status: marital status details: x 2 Current Living Situation: Alone current occupational status: retired 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 Physical Exam Physical Exam: GENERAL: Patient in no acute distress. HEENT: Head is atraumatic, normocephalic. EOM's intact. Facies symmetric. No perioral cyanosis. NECK: No JVD. JVP is not elevated. Carotid upstrokes are + 2 bilaterally without obvious bruits. CHEST/LUNGS: Clear to auscultation throughout all lung landry. No wheezes, rales, or crackles. CVS: S1 and S2 are irregularly irregular borderline tachycardic with a grade 1/6 apical holosystolic murmur noted. No obvious diastolic murmurs. No gallops or rubs. PMI is nondisplaced. No lifts, heaves, or thrills. No abdominal aortic or renal bruits. ABDOMINAL EXAM: Bowel sounds are present. No masses, organomegaly, or tenderness. EXTREMITIES: No clubbing or cyanosis. Trace bipedal and ankle edema. Intact posterior tibial and radial pulses bilaterally. NEUROLOGIC EXAM: Patient is awake, alert, and oriented. Pleasant and cooperative. Answers questions appropriately. Speech is clear. Normal movement in all 4 extremities. Gait pattern was not assessed. Results & Data ([facility]) Vital Signs (Past 12 Hours) Vital Signs Temp Pulse Pulse Resp BP Pulse Ox 10/24/21 08:06 37.2 C 96 H 24 112/64 90 10/24/21 03:50 37.4 C 96 H 22 118/75 92 10/24/21 01:12 37.2 C 101 H 22 122/90 93 Laboratory Results Laboratory Results - last 24 hr 12/28/21 12/28/21 12/28/21 12:25 12:25 12:25 WBC 8.90 RBC 4.46 Hgb 13.8 Hct 42.1 MCV 94.4 MCH 30.9 MCHC 32.8 RDW Std Deviation 48.1 H RDW Coeff of Matilde 14.0 Plt Count 351 MPV 9.7 Immature Gran % (Auto) 0.9 Neut % (Auto) 77.6 Lymph % (Auto) 13.0 Whiteside % (Auto) 7.3 Eos % (Auto) 0.9 Baso % (Auto) 0.3 Neut # (Auto) 6.90 H Lymph # (Auto) 1.16 L Whiteside # (Auto) 0.65 H Eos # (Auto) 0.08 Baso # (Auto) 0.03 Immature Gran # (Auto) 0.08 H APTT PTT Ratio Sodium 136 Potassium 3.1 L Chloride 104 Carbon Dioxide 26 Anion Gap 6.0 BUN 12 Creatinine 0.81 Est Cr Clr Drug Dosing 79.5 Est GFR ( Amer) 84.7 Est GFR (Non-Af Amer) 73.1 BUN/Creatinine Ratio 14.4 Glucose 110 H Calcium 8.9 Magnesium 2.5 H Total Bilirubin 0.5 AST 22 ALT 66 Alkaline Phosphatase 54 CK-MB (CK-2) CK/CKMB % Calc Troponin I 0.081 H* Total Protein 7.8 Albumin 2.7 L Globulin 5.1 H Albumin/Globulin Ratio 0.5 L TSH Free T4 Random Cortisol Urine Color Yellow Urine Appearance Clear Urine pH 7.0 Ur Specific [place] 1.005 Urine Protein Negative Urine Glucose (UA) Negative Urine Ketones Trace H Urine Blood Negative Urine Nitrite Negative Urine Bilirubin Negative Urine Urobilinogen Negative Ur Leukocyte Esterase Negative SARS-CoV-2, RNA, NAAT 10/23/21 10/23/21 10/23/21 12:25 16:52 16:53 WBC RBC Hgb Hct MCV MCH MCHC RDW Std Deviation RDW Coeff of Matilde Plt Count MPV Immature Gran % (Auto) Neut % (Auto) Lymph % (Auto) Whiteside % (Auto) Eos % (Auto) Baso % (Auto) Neut # (Auto) Lymph # (Auto) Whiteside # (Auto) Eos # (Auto) Baso # (Auto) Immature Gran # (Auto) APTT 26.3 PTT Ratio 1.0 Sodium Potassium Chloride Carbon Dioxide Anion Gap BUN Creatinine Est Cr Clr Drug Dosing Est GFR ( Amer) Est GFR (Non-Af Amer) BUN/Creatinine Ratio Glucose Calcium Magnesium Total Bilirubin AST ALT Alkaline Phosphatase CK-MB (CK-2) 1.8 CK/CKMB % Calc Troponin I 0.106 H* Total Protein Albumin Globulin Albumin/Globulin Ratio TSH Free T4 Random Cortisol 15.73 Urine Color Urine Appearance Urine pH Ur Specific [place] Urine Protein Urine Glucose (UA) Urine Ketones Urine Blood Urine Nitrite Urine Bilirubin Urine Urobilinogen Ur Leukocyte Esterase SARS-CoV-2, RNA, NAAT 10/23/21 10/23/21 10/24/21 22:47 Unknown 00:20 WBC 8.96 RBC 4.19 L Hgb 13.1 Hct 39.9 MCV 95.2 MCH 31.3 MCHC 32.8 RDW Std Deviation 49.6 H RDW Coeff of Matilde 14.2 Plt Count 352 MPV 9.5 Immature Gran % (Auto) 0.4 Neut % (Auto) 67.3 Lymph % (Auto) 17.6 Whiteside % (Auto) 13.6 Eos % (Auto) 0.9 Baso % (Auto) 0.2 Neut # (Auto) 6.02 Lymph # (Auto) 1.58 Whiteside # (Auto) 1.22 H Eos # (Auto) 0.08 Baso # (Auto) 0.02 Immature Gran # (Auto) 0.04 H APTT 30.4 PTT Ratio 1.2 Sodium Potassium Chloride Carbon Dioxide Anion Gap BUN Creatinine Est Cr Clr Drug Dosing Est GFR ( Amer) Est GFR (Non-Af Amer) BUN/Creatinine Ratio Glucose Calcium Magnesium Total Bilirubin AST ALT Alkaline Phosphatase CK-MB (CK-2) CK/CKMB % Calc Troponin I Total Protein Albumin Globulin Albumin/Globulin Ratio TSH Free T4 Random Cortisol Urine Color Urine Appearance Urine pH Ur Specific [place] Urine Protein Urine Glucose (UA) Urine Ketones Urine Blood Urine Nitrite Urine Bilirubin Urine Urobilinogen Ur Leukocyte Esterase SARS-CoV-2, RNA, NAAT NEGATIVE 10/24/21 10/24/21 10/24/21 00:20 06:45 06:45 WBC RBC Hgb Hct MCV MCH MCHC RDW Std Deviation RDW Coeff of Matilde Plt Count MPV Immature Gran % (Auto) Neut % (Auto) Lymph % (Auto) Whiteside % (Auto) Eos % (Auto) Baso % (Auto) Neut # (Auto) Lymph # (Auto) Whiteside # (Auto) Eos # (Auto) Baso # (Auto) Immature Gran # (Auto) APTT 42.8 H PTT Ratio 1.6 Sodium 137 Potassium 3.5 Chloride 104 Carbon Dioxide 27 Anion Gap 7.0 BUN 14 Creatinine 0.91 Est Cr Clr Drug Dosing 70.8 Est GFR ( Amer) 73.6 Est GFR (Non-Af Amer) 63.5 BUN/Creatinine Ratio 15.3 Glucose 111 H Calcium 8.2 L Magnesium Total Bilirubin AST ALT Alkaline Phosphatase CK-MB (CK-2) 1.8 CK/CKMB % Calc Not Reportable Troponin I 0.114 H* Total Protein Albumin Globulin Albumin/Globulin Ratio TSH 2.340 Free T4 1.44 Random Cortisol Urine Color Urine Appearance Urine pH Ur Specific [place] Urine Protein Urine Glucose (UA) Urine Ketones Urine Blood Urine Nitrite Urine Bilirubin Urine Urobilinogen Ur Leukocyte Esterase SARS-CoV-2, RNA, NAAT Diagnostic Findings CXR 10/22/21: No pneumothorax. Small bilateral pleural effusions have increased in size. There are bibasilar linear densities. No evidence for pulmonary edema. The heart is mildly enlarged. This is also progressed in the interval. The upper lung zones are clear. IMPRESSION: 1. Increase in size in the small bilateral pleural effusions and mild cardiomegaly. 2. Bibasilar densities have also progressed and favor atelectasis. A pneumonia could also have a similar appearance. Medications Administered Medications epinephrine 0.3 mg/0.3 mL injection, auto-injector 0.3 mg IM ONCE PRN #1 ea 05/13/19 [History Confirmed 10/23/21] organ concentrates 80 mg capsule 0 mg PO UD cap 05/13/19 [History Confirmed 10/23/21] vitamin B complex (B Complex-Vitamin B12) 1 tab PO DAILY 05/13/19 [History Confirmed 10/23/21] estradiol 10 mcg vaginal tablet (Vagifem) 10 mcg PV 2XWK #24 tab 11/20/20 [Rx Confirmed 10/23/21] cyanocobalamin (vitamin B-12) 100 mcg tablet 100 mcg PO WK tab 12/11/20 [History Confirmed 10/23/21] tretinoin 0.1 % topical cream 1 applic TOPICAL HS PRN #1 gm 12/11/20 [History Confirmed 10/23/21] cyclosporine 0.05 % eye drops in a dropperette (Restasis) 1 drp OPHTHALMIC (EYE) Q12H 02/27/21 [History Confirmed 10/23/21] thyroid (pork) 60 mg tablet (Anvik Thyroid) 60 mg PO DAILY #90 tab 03/12/21 [Rx Confirmed 10/23/21] calcium citrate 315 mg calcium-vitamin D3 6.25 mcg (250 unit) tablet (Citracal + Vitamin D Maximum) 1 tab PO TID tab 09/07/21 [History Confirmed 10/23/21] B-complex with vitamin C 1 cap PO DAILY #30 cap 09/18/21 [Rx Confirmed 10/23/21] ascorbate calcium (vitamin C) 500 mg tablet 500 mg PO DAILY #30 tab 09/18/21 [Rx Confirmed 10/23/21] biotin 1 mg capsule 1 mg PO DAILY #30 cap 09/18/21 [Rx Confirmed 10/23/21] cetirizine 10 mg capsule (Zyrtec) 10 mg PO DAILY PRN #7 cap 09/18/21 [Rx Confirmed 10/23/21] cholecalciferol (vitamin D3) 8,000 unit PO DAILY #5 ml 09/18/21 [Rx Confirmed 10/23/21] coenzyme Q10 30 mg capsule (CoQ-10) 30 mg PO DAILY #30 cap 09/18/21 [Rx Confirmed 10/23/21] digestive enzymes 1 cap PO DAILY #30 cap 09/18/21 [Rx Confirmed 10/23/21] selenium 200 mcg capsule 200 mcg PO DAILY #30 cap 09/18/21 [Rx Confirmed 10/23/21] vitamin E 200 unit capsule 200 unit PO DAILY #30 cap 09/18/21 [Rx Confirmed 10/23/21] Proventil HFA 90 mcg/actuation aerosol inhaler (albuterol sulfate) 2 puff INHALATION Q6H PRN #6.7 gm NS 10/15/21 [Rx Confirmed 10/23/21] Allergy Drops 1 drp SUBLINGUAL TID 10/23/21 [History Confirmed 10/23/21] Dessaicrated Adrenal Supp 1 - 18 tab PO DAILY 10/23/21 [History Confirmed 10/23/21] Drenatrophin 1 tab PO TID 10/23/21 [History Confirmed 10/23/21] Saccharomyces boulardii 250 mg capsule (Florastor) 500 mg PO TID 10/23/21 [History Confirmed 10/23/21] Thytrophin 4 cap PO UD 10/23/21 [History Confirmed 10/23/21] blue-green algae (Spirulina) 500 mg tablet 0 mg PO QID 10/23/21 [History Confirmed 10/23/21] mupirocin 2 % topical ointment 1 applic TOPICAL TID PRN 10/23/21 [History Confirmed 10/23/21] olopatadine 0.7 % eye drops (Pataday Once Daily Relief) 1 drp OPHTHALMIC (EYE) DAILY 10/23/21 [History Confirmed 10/23/21] Home Medications Acetaminophen (Acetaminophen 325 Mg Tab) 650 mg PO Q6H PRN PRN Reason: Pain or Fever Stop: 11/22/21 19:01 Albuterol (Albuterol Hfa 8 Gm Inhaler) 2 puffs INH Q6R PRN PRN Reason: shortness of breath or wheezin Stop: 11/22/21 19:01 Ascorbic Acid (Ascorbic Acid 500 Mg Tab) 500 mg PO DAILY [facility] Stop: 11/23/21 08:59 Aspirin (Aspirin 81 Mg Ectab) 81 mg PO QAM [facility] Stop: 11/23/21 08:59 Cetirizine HCl (Cetirizine Hcl 10 Mg Tablet) 10 mg PO DAILY PRN PRN Reason: allergy symptoms Stop: 11/22/21 19:15 Last Admin: 10/23/21 20:47 Dose: 10 mg Documented by: Epinephrine HCl (Epinephrine Inj 1 Mg/Ml Amp) 0.3 mg IM ONCE PRN PRN Reason: anaphylaxis Stop: 11/22/21 19:22 Heparin Sodium/Dextrose (Heparin Sodium/Dextrose) 25,000 units in 500 mls @ 24 mls/hr IV .[id number] [facility]; Protocol Stop: 11/22/21 13:59 Last Titration: 10/24/21 00:31 Dose: 1,200 units/hr, 24 mls/hr Documented by: Metoprolol Tartrate (Metoprolol Tartrate 25 Mg Tab) 25 mg PO BID [facility] Stop: 11/23/21 09:14 Miscellaneous (Order Awaiting Action) 1 ea N/A QS [facility] Stop: 11/23/21 00:00 Last Admin: 10/23/21 23:08 Dose: Not Given Documented by: Ondansetron HCl (Ondansetron Inj 2 Mg/Ml 2 Ml Vial) 4 mg IV Q6H PRN PRN Reason: Nausea Stop: 11/22/21 19:01 Psyllium Hydrophilic Mucilloid (Psyllium 58.6% Powder Packet) 1 pkt PO DAILY PRN PRN Reason: constipation Stop: 11/22/21 19:01 Thyroid ([place]vik Thyroid 30 Mg Tab) 60 mg PO DAILY EILEEN Stop: 11/23/21 08:59 Vitamin B Complex (Vitamin B Complex Tab) 1 tab PO DAILY [facility] Stop: 11/23/21 08:59 Vitamin D (Cholecalciferol 1,000 Units 25 Mcg Tab) 8,000 units PO DAILY [facility] Stop: 11/23/21 08:59 Vitamin E (Tocopheryl, Dl-Alpha 100 Units Cap) 200 units PO DAILY [facility] Stop: 11/23/21 08:59 PG Care Time/CCT Total # of Minutes Spent Total Time Spent with Patient: Total time spent is greater than 50% in coordination of care (as documented) at patient's floor/unit and/or counseling patient:35 Coding Level of Care Code 76798 Inpt Consult Level 4 Diagnoses Atrial fibrillation with RVR I48.91 Elevated troponin I level R77.8 ROSS (dyspnea on exertion) R06.00 Hypokalemia E87.6 Ascending aorta dilatation I77.810 Time Spent (min) 62
--- NOTE | 2021-10-24 11:20 | Electrocardiogram Report ---
Test Reason : Blood Pressure : / mmHG Vent. Rate : 101 BPM Atrial Rate : 340 BPM P-R Int : 000 ms QRS Dur : 082 ms QT Int : 334 ms P-R-T Axes : 000 -62 030 degrees QTc Int : 433 ms Atrial fibrillation with rapid ventricular response Low voltage QRS Left anterior fascicular block Poor R wave progression, consider anterior OH vs. lead placement vs. LVH Abnormal ECG Confirmed by Gonzalez Ventura ([id number]) on 10/24/2021 11:19:34 AM Referred By: REFERRED SELF Confirmed By:Adarsh Ventura
--- NOTE | 2021-10-24 17:38 | Discharge Summary ---
Date of Service October 24, 2021 Admission HPI Per Admitting Provider This is a 71-year-old female who presented to the emergency department secondary to generally not feeling since October 11 of this year well along with palpitations. Patient notes that she generally is a very active lifestyle working out at the gym several times per week. Prior to October 11 the patient was able to maintain her usual level of activity and exercise and specifically notes she has not noted any decreased exercise capacity. Patient notes that sometime around October 11 she started to not feel well. Patient notes that she was running low-grade temperatures of 100.5 and was noted to have a rash on her arms and legs. In addition the patient notes that she has had a dry mouth along with some generalized fatigue and noted that her ankles and feet became swollen. She has noted a decreased appetite but denies any abdominal pain or nausea vomiting. In addition to the symptoms patient does note some dyspnea on exertion that began along with 2 pillow orthopnea. She does use a CPAP machine at home and she reports compliance with it. Patient presented to the emergency department today secondary to the above symptoms along with palpitations. She denied any syncope or presyncope. She also denies any chest pain. She reports taking her blood pressure at home which was approximately 100-105 systolic which is low for her. The patient further relates that when her symptoms first started she was seen by her primary care team. At this time the patient also noted that she had a rash on her arms and legs. She noted there is concern on the part of her primary care team that she may have had a rickettsial infection but she denies any insect, tick, or spider bites. Although there was concern for potential rickettsial disease, the patient's primary care team also entertain the idea that this could have been due to some type of viral exanthem. Patient says that she was treated with a combination of prednisone as well as doxycycline and her symptomatology concerning her rash improved. In addition, the patient was checked for Lyme disease, influenza AMB, and COVID-19all of which were negative on October 16 and . As noted the patient presented to the emergency department. Today she had labs which I independently reviewed including a CBC where her white blood cell count, hemoglobin, hematocrit, platelet count are all within normal range. A chemistry profile showed her sodium, BUN, and creatinine were within normal range. Her potassium is low at 3.1. Magnesium was noted to be elevated at 2.5. Cardiac enzymes were checked and her troponin was elevated at 0.081. A Covid test was performed and was noted to be negative. A urinalysis was checked and was not indicative of ischemia. An EKG was performed that showed a cardiac rhythm that appeared to be atrial fibrillation with a heart rate of approximate 114. Nonspecific T wave abnormalities were noted. Patient had a chest x-ray on 10/22/2021 that showed small bilateral pleural effusions. Patient's records were reviewed and is no over the mention that she follows with Dr. Benton for cardiology purposes. Patient has had a stress echocardiogram in June 2020 that was negative for ischemia. Patient is known to have a dilated ascending aorta as well as moderate mitral regurgitation. In addition the patient notes that she self treats herself for adrenal insufficiency with an [id number] supplement. Patient notes that she is essentially a lifelong non-smoker (she did try smoking cigars when she was in college). She also notes that she rarely consumes caffeinated beverages. At the time of my interview the patient was resting comfortably in bed and she was in no distress. Principal Diagnosis New onset atrial fibrillation, RVRnow improving Discharge Exam In general she is awake and alert, pleasant no distress. HEENT normocephalic atraumatic mucous membranes moist. Breathing unlabored no accessory muscle use good effort. Heart rate about 80 on the monitor the whole time we are talking. Neuro shows cranial nerves II through XII be grossly intact no noted deficits. Skin without rashes, pallor, icterus. Discharge Data Allergies Allergy/AdvReac Type Severity Reaction Status Date / Time clavulanic acid Allergy Mild Verified 10/23/21 09:37 corn Allergy Mild DIARRHEA Verified 10/23/21 09:37 nitrofurantoin Allergy Mild Verified 10/23/21 09:37 Penicillins Allergy Mild Verified 10/23/21 09:37 Sulfa (Sulfonamide Allergy Mild UNKNOWN Verified 10/23/21 09:37 Antibiotics) gluten Allergy Unknown GI UPSET Verified 10/23/21 09:37 milk Allergy Unknown . Verified 10/23/21 09:37 adhesive tape Allergy Verified 10/23/21 09:37 amoxicillin Allergy Verified 10/23/21 09:37 cat dander Allergy Verified 10/23/21 09:37 dog dander Allergy Verified 10/23/21 09:37 grass pollen Allergy Verified 10/23/21 09:37 house dust mite Allergy Verified 10/23/21 09:37 lactase [From Dairy Aid] Allergy Verified 10/23/21 09:37 latex Allergy Verified 10/23/21 09:37 mold Allergy Verified 10/23/21 09:37 pneumococcal vaccine Allergy Verified 10/23/21 09:37 [From Pneumovax 23] pollen extracts Allergy Verified 10/23/21 09:37 ragweed pollen Allergy Verified 10/23/21 09:37 tree and shrub pollen Allergy Verified 10/23/21 09:37 Consultations 10/23/21 13:50 ED Decision to Admit Stat 10/23/21 14:51 Consult Cardiology Routine Hospital Course (1) Atrial fibrillation with RVR: Likely A. fib related to age and mitral regurg, RVR/A. fib becoming unmasked likely related to acute illness (probably was viral). Rate now controlled, stable for home, set up for anticoagulation. -For now home on metoprolol 50 mg twice daily (discharge instructions initially said 25 twice daily, but as the afternoon progressed her heart rates increased to about [id number], so 25 increased to 50 twice daily and new prescription sent). Sent with tartrate to allow for easier rapid titration of medicationsbut discussed with patient once she is on a more stable set dose but I would anticipate a transition to succinate. -AnticoagulationXarelto sent. Risk/benefits discussed. -Outpatient follow-up with PCP and cardiology (2) Hypothyroidism: On Nice Thyroidrealized this after it had discussions with patientincluded in her discharge instructions that the erratic nature of this particular medicine may also have a contribution to her A. fib/RVR. (3) Hypokalemia: Replaced (4) Elevated troponin: Demand from RVR. No wall motion abnormalities on echo (5) Adrenal insufficiency: On clarification, appears to have been a self diagnosis of "adrenal fatigue"for which she is taking a bovine adrenal supplement. Random cortisol pretty reassuring at almost 16. Discussed that since this is a concern of hers, a formal cosyntropin stim as an outpatient would be pretty accurate way to rule out actual adrenal issues, and that very frequently a self diagnosis of "adrenal fatigue" is more often the fatigue 1 feels from emotional/physiologic stress, sleep issues, etc. Total Time Total Time Spent Total Time Spent (In Minutes): Greater than 30 Discharge Plan Discharge Items Patient Disposition: Home - Self-Care Reason For Visit: AFIB Discharge Diagnosis: Atrial fibrillation Activity: Resume your previous activity Non-emergency contact: Primary Care Provider and Shelter Director Call non-emergency contact if: you have any medication questions and your symptoms worsen Follow-up/Referrals: Zlueika Mclain MD [Primary Care Provider] - Diet: Regular Addtl Attending Provider Instructions: Atrial fibrillation -As we discussed, atrial fibrillation basically happens when the wiring in the top part of her heart (atria) starts to wear out. When this happens, the electricity no longer is Thal old quickly through the atria, but rather jumps from cell to cell, causing erratic beating of the atria, and a ton of signals per second bombarding the ventricles. This then can lead to inappropriate racing heart rates, which probably caused a lot of your symptoms. -Atrial fibrillation starts to become more common as we age. Once somebody is 65 or older, there is about a 5% chance of having atrial fibrillation simply from the age of the wiring in your atria; additionally with you, the low-grade but constant stretching of your left atrium from your leaky mitral valve likely contributed as well. -Being sick recently almost certainly created the "why now" as it relates to the A. fib showing up at this time. To be clear, it was not that being sick caused you to go into A. fib, but all the time we see when somebody is sick with so mething that would make their heart go faster for "normal reasons", and they have a propensity to A. fib, that the time the physiologic stress often "unmasked" the A. fib -For most people, the main goals will be controlling heart rates, and preventing strokes -Controlling heart rates usually is fairly easyso far you have done well with relatively low intensity measures to keep your heart rates under control. To that end, we will be sending you home on metoprolol 25 mg twice a day. As we discussed, it is always hard to predict exactly what somebody is going to need to keep the heart rate under controland often for the first few weeks it can be a series of minor adjustments in the medication/dosing to get heart rates where they need to be. Because of that, I will be sending you home with a prescription for short acting metoprolol, to make dose adjustments easier. Once you are on a dose that is reliably keeping your heart rate under good control, Dr. Mayer can transition from the short acting metoprolol over to the long- acting (which makes it easier with the pill being once a day instead of twice or more, and also for the long run it is generally a better medication). -It would be very helpful for you to follow your heart rates periodicallyas we discussed, devices such as Sensentia (while not technically FDA approved) in my opinion are pretty helpful and seemed pretty reliably capture heart rate/rhythm information will make it easier for you/Dr. Mayer/Dr. Benton to adjust medications. -If your heart rates are very difficult to control, or if you continue to feel lousy (weak/easily fatigued/more swollen in the legs/easy shortness of breath with exertion) that would be where procedures such as a cardioversion (to convert you from atrial fibrillation to a regular rhythm) could be useful. However, as we discussed, a large majority of patients with atrial fibrillation feel fine once their rates are behaving, regardless of what rhythm therein. late addendum - heart rate was slightly over 100 - metoprolol increased to 50mg twice a day - new Rx sent) -Because the atria quiver instead of contract, this allows a stagnant pond to formwhich can allow clots to form, raising your risk of stroke. As we discussed, your overall risk is somewhere in the neighborhood of 3 %/year, which is definitely enough to warrant being on a blood thinner (remember atrial fibrillation strokes tend to be large/catastrophic), but is a low enough risk that being on a blood thinner should take the risk of stroke down to almost 0%. There are several good blood thinners on the marketfrequently the "insurance game" of cost/coverage is a little bit difficult to figure outgiven that in you, there is no real need to prioritize one blood thinner over another, we have started with a prescription for Xarelto (because it is once a day, making it the easiest to remember to take). That said, if you get to the pharmacy and the Xarelto is $500, have them call me because then we can give trial to Eliquis or Pradaxa instead. Usually at least one of them is covered well. -Of course, when somebody is on a blood thinner, there is more of a chance of bl eeding. Always remember that the reason for being on the blood thinners to protect your brain from a stroke. That said, the huge majority of bleeding on a blood thinner is more in the range of "nuisance" than catastrophe. Typically what we see is if you have a nosebleed it may take a while to stop, or if you cut your finger in the kitchen it may look more like "shark bite"if it is that kind of bleeding, put pressure on it and then look at the clock. Most bleeding will respond to 10 minutes of pressure. If the bleeding has not responded to 10 minutes of pressure, then it would be reasonable to go to the office (or depending on time of day, the ER) because the nosebleed might need to be packed or cauterized, or the cut may need stitched. This also sets up a nice rule for safety, because if it is bleeding that you cannot put pressure on (such as vomiting blood, bloody bowel movements) then you would know that it is time to come to the ER right away. As we discussed, the newer blood thinners tend to have far less catastrophic bleeding than Coumadin, except that if it is to be a serious bleed is more likely to be gastrointestinalwhich as we discussed in a bizarre way is a bit of a "backwards good thing" because generally speaking GI bleeding is very manageable. To round out this part of the discussion, remember that most people do not have serious bleeds at all. Question of adrenal insufficiency -I suspect what you were feeling as "adrenal fatigue" is more likely the fatigue from multiple life stressors hitting all at once. Your random cortisol level yesterday was 15.73 mcg/dL, and while it was during a time of day where the normal range is a bit more ill-defined, generally the range for normal for a cortisol random check as the day goes on is between about 3 and 16. To lay the issue to rest, as we discussed, the most definitive test on your adrenal function would be a cosyntropin stimulation testand these are best done in the endocrinology office, for accuracy. I have asked to set referrals in motion to help with that. In the short-term, I would have you keep taking your supplement for now, so that we do not create too many variables at once. However, once you have the cosyntropin stim test done, if your adrenals look as normal as I suspect, it would be worth stopping that supplement. If there is a long time to get in to endocrine for this, it also would be pretty reasonable in a few weeks, with Dr. Mayer guiding you, to give trial to stopping the adrenal supplement and following how you are doing. 1 other thing that crossed my mind as I was reviewing your medications is that Nice Thyroid, as a thyroid supplement, often has a bit of an erratic nature to itthere is not a lot of regularity to when it kicks in, and often each prescription may have a different amount of actual thyroid hormone in it. Again, while not necessarily causative of the atrial fibrillation, the potential for erratic "ups and downs" in your metabolic rate from the thyroid hormone supplement, could be another subtle cdl a driver for both the A. fib, and your feelings of "adrenal fatigue" - talk with Dr Mayer more about this - again we don't want to create too many variables at once, and there would be no emergency to this, but it could be a potential change that helps you feel better. Pending Studies at Discharge: No Stand-Alone Forms: [facility] F[facility], Smoking Cessation Medications and DC Order Prescriptions: New Xarelto 20 mg tablet 20 mg PO DAILY Qty: 30 RF: 0 metoprolol tartrate 50 mg tablet 50 mg PO BID Qty: 60 RF: 0 Continued estradiol [Vagifem] 10 mcg tablet 10 mcg PV 2XWK Qty: 24 RF: 2 thyroid (pork) [Nice Thyroid] 60 mg tablet 60 mg PO DAILY Qty: 90 RF: 3 ascorbate calcium (vitamin C) 500 mg tablet 500 mg PO DAILY Qty: 30 RF: 0 cholecalciferol (vitamin D3) 50 mcg/drop (2, 000 unit/drop) drops 8,000 unit PO DAILY Qty: 5 RF: 0 Zyrtec 10 mg capsule 10 mg PO DAILY PRN (Reason: allergy symptoms) Qty: 7 RF: 0 B-complex with vitamin C Capsule 1 cap PO DAILY Qty: 30 RF: 0 digestive enzymes Capsule 1 cap PO DAILY Qty: 30 RF: 0 vitamin E 200 unit capsule 200 unit PO DAILY Qty: 30 RF: 0 coenzyme Q10 [CoQ-10] 30 mg capsule 30 mg PO DAILY Qty: 30 RF: 0 selenium 200 mcg capsule 200 mcg PO DAILY Qty: 30 RF: 0 biotin 1 mg capsule 1 mg PO DAILY Qty: 30 RF: 2 albuterol sulfate [Proventil HFA] 90 mcg/actuation HFA aerosol inhaler 2 puff inhalation Q6H PRN (Reason: shortness of breath or wheezing) Qty: 6.7 RF: 5 organ concentrates 80 mg capsule 0 mg PO UD RF: 0 epinephrine 0.3 mg/0.3 mL auto-injector 0.3 mg IM ONCE PRN (Reason: anaphylaxis) Qty: 1 RF: 0 vitamin B complex [B Complex-Vitamin B12] tablet 1 tab PO DAILY RF: 0 tretinoin 0.1 % cream 1 applic topical HS PRN (Reason: flare ups) Qty: 1 RF: 0 calcium citrate-vitamin D3 [Citracal + D Maximum] 315 mg-6.25 mcg (250 unit) tablet 1 tab PO TID RF: 0 cyanocobalamin (vitamin B-12) 100 mcg tablet 100 mcg PO WK RF: 0 Restasis 0.05 % dropperette 1 drp ophthalmic (eye) Q12H RF: 0 Allergy Drops 1 drp sublingual TID RF: 0 Pataday Once Daily Relief 0.7 % Drops 1 drp OPHTHALMIC (EYE) DAILY RF: 0 Dessaicrated Adrenal Supp 1 - 18 tab PO DAILY RF: 0 Drenatrophin 1 tab PO TID RF: 0 Thytrophin 4 cap PO UD RF: 0 blue-green algae (Spirulina) 500 mg tablet 0 mg PO QID RF: 0 mupirocin 2 % ointment 1 applic topical TID PRN (Reason: ..) RF: 0 Saccharomyces boulardii [Florastor] 250 mg capsule 500 mg PO TID RF: 0 Discharge Orders: Discharge Order (Routine); Ordered 10/24/21 Ordered By: Christ Alejandro Admission Data Admit Date/Time: 10/23/21 14:46 Attending Provider: Christ Alejandro Admit Provider: Miguel Shelton Primary Care Provider: Zuleika Mclain Other Providers: Miguel Shelton ; Jet Benton Other Interventions: Discharge Summary Assessment (RN) Last Done: 10/24/21 14:57 Coding Level of Care Code D/C DAY MANAGEMENT >30 MINS Diagnoses Atrial fibrillation with RVR I48.91 Hypothyroidism E03.9 Hypokalemia E87.6 Elevated troponin R77.8 Adrenal insufficiency E27.40
== END 2021-10-24 15:11 | disposition home or self-care (01) | DRG 309 ==
LOC: ED 11:16 → SUATTDRO 14:46 → EDINP 14:46

== ENCOUNTER 2025-10-07 05:25 | Observation (INO) ==
--- NOTE | 2025-09-09 16:06 | PAT Medication Instructions ---
Medication Instructions Date of Service September 09, 2025 Home Medications Medication Instructions Recorded mupirocin 2 % topical ointment 1 applic topical BID PRN nose #15 10/03/23 grams Spacer for Inhaler #1 ea 10/30/23 blood-glucose meter (OneTouch #1 ea 06/11/24 Ultra2 Meter) lancets 30 gauge (OneTouch #100 ea 06/11/24 UltraSoft 2 Lancet) blood sugar diagnostic (OneTouch #50 ea 06/14/24 Ultra Test strips) albuterol sulfate 90 mcg/actuation 2 puff inhalation Q6H PRN 11/08/24 aerosol inhaler shortness of breath or wheezing #6.7 grams [place] Thyroid 60 mg tablet 60 mg PO QAM #90 tabs 01/03/25 (thyroid (pork)) estradiol 10 mcg vaginal tablet 10 mcg vaginal 2XWK #24 tabs 01/28/25 (Vagifem) diltiazem HCl 180 mg 180 mg PO DAILY PRN atrial 09/07/25 capsule,extended release 24 hr fibrillation #30 caps rivaroxaban 20 mg tablet (Xarelto) 20 mg PO DAILY PRN atrial 09/07/25 fibrillation #30 tabs Saccharomyces boulardii 250 mg capsule (Florastor) 500 mg PO TID blue-green algae (Spirulina) 500 mg tablet 500 mg PO QID mecobalamin (vitamin B12) 6 mcg PO QAM olopatadine 0.7 % eye drops ([place] Once Daily Relief) 1 drp ophthalmic (eye) UD PRN allergies tretinoin 0.1 % topical cream 1 applic topical QAM biotin 1 mg capsule 1 mg PO QAM digestive enzymes 1 cap PO TID selenium 200 mcg capsule 100 mcg PO TID cholecalciferol (vitamin D3) 50 mcg/drop (2,000 unit/drop) oral drops 8 - 10,000 unit PO QAM mupirocin 2 % topical ointment 1 applic topical BID PRN nose omega 6-vcx-ljf-fish oil 100 mg-160 mg-1,000 mg capsule (Fish Oil) 1 cap PO DAILY [place]ingo Biloba 1 dose PO JEROMY albuterol sulfate 90 mcg/actuation aerosol inhaler 2 puff inhalation Q6H PRN shortness of breath or wheezing calcium carbonate 500 mg PO TID quercetin 500 mg capsule 500 mg PO BID [place] Thyroid 60 mg tablet (thyroid (pork)) 60 mg PO QAM estradiol 10 mcg vaginal tablet (Vagifem) 10 mcg vaginal 2XWK Antronex 1 dose PO QID B-complex with vitamin C 1 cap PO DAILY ascorbate calcium (vitamin C) 500 mg tablet 250 mg PO QAM cyclosporine 0.09 % eye drops in a dropperette (Cequa) 1 drp ophthalmic (eye) Q12H fluticasone propionate 44 mcg/actuation HFA aerosol inhaler 1 puff inhalation BI D PRN minoxidil 2.5 mg tablet 2.5 mg PO DAILY Basis Health 1 dose PO DAILY Cardiotrophin 1 dose PO DAILY Cataplex B12 1 dose PO DAILY Dermatrophin 1 dose PO DAILY Drenamin 3 tab PO TID Drenatrophin 1 tab PO TID Estrogen Insert 1 dose vaginal 2XWK Lv-Gb Complex 1 dose PO DAILY Neuro-Mag 1 dose PO DAILY Pancreatrophin 1 dose PO DAILY Panctrevan 2 cap PO BID Pqq 1 cap PO BID Rna Dose 1 dose PO DAILY Thytrophin 4 tab PO TID Tribulus 1 dose PO DAILY Tuna [place] 3 Oil 1 cap PO DAILY Zypan 2 tab PO TIDM acetylcarnitine HCl 250 mg capsule 250 mg PO DAILY bilberry fruit 1,000 mg capsule 1,000 mg PO BID celecoxib 100 mg capsule (Celebrex) 100 mg PO QAM celecoxib 200 mg capsule (Celebrex) 200 mg PO BID PRN Other choline 250 mg tablet 250 mg PO BID cyclosporine 0.05 % eye drops in a dropperette (Restasis) 1 drp ophthalmic (eye) Q12H digestive enzymes 1 tab PO DAILY inositol 250 mg tablet 250 mg PO UD diltiazem HCl 180 mg capsule,extended release 24 hr 180 mg PO DAILY PRN atrial fibrillation rivaroxaban 20 mg tablet (Xarelto) 20 mg PO DAILY PRN atrial fibrillation Continue as directed olopatadine 0.7 % eye drops (Pataday Once Daily Relief) 1 drp ophthalmic (eye) UD PRN allergies (if needed) minoxidil 2.5 mg tablet 2.5 mg PO DAILY diltiazem HCl 180 mg capsule,extended release 24 hr 180 mg PO DAILY PRN atrial fibrillation (if needed) ASK your surgeon for instructions celecoxib 100 mg capsule (Celebrex) 100 mg PO QAM celecoxib 200 mg capsule (Celebrex) 200 mg PO BID PRN Other ASK your prescriber and surgeon rivaroxaban 20 mg tablet (Xarelto) 20 mg PO DAILY PRN atrial fibrillation (in order to get spinal anesthesia DOS- must be off Xarelto/rivaroxaban for at least 72 hours) STOP taking 2 weeks before surgery blue-green algae (Spirulina) 500 mg tablet 500 mg PO QID biotin 1 mg capsule 1 mg PO QAM digestive enzymes 1 cap PO TID selenium 200 mcg capsule 100 mcg PO TID omega 4-nwk-api-fish oil 100 mg-160 mg-1,000 mg capsule (Fish Oil) 1 cap PO DAILY Gingo Biloba 1 dose PO DAILY quercetin 500 mg capsule 500 mg PO BID Antronex 1 dose PO QID Basis Health 1 dose PO DAILY Cardiotrophin 1 dose PO DAILY Cataplex B12 1 dose PO DAILY Dermatrophin 1 dose PO DAILY Drenamin 3 tab PO TID Drenatrophin 1 tab PO TID Lv-Gb Complex 1 dose PO DAILY Neuro-Mag 1 dose PO DAILY Pancreatrophin 1 dose PO DAILY Panctrevan 2 cap PO BID Pqq 1 cap PO BID Rna Dose 1 dose PO DAILY Thytrophin 4 tab PO TID Tribulus 1 dose PO DAILY Tuna [place] 3 Oil 1 cap PO DAILY Zypan 2 tab PO TIDM bilberry fruit 1,000 mg capsule 1,000 mg PO BID choline 250 mg tablet 250 mg PO BID digestive enzymes 1 tab PO DAILY acetylcarnitine HCl 250 mg capsule 250 mg PO DAILY inositol 250 mg tablet 250 mg PO UD STOP taking 24 hours before surgery tretinoin 0.1 % topical cream 1 applic topical QAM mupirocin 2 % topical ointment 1 applic topical BID PRN nose estradiol 10 mcg vaginal tablet (Vagifem) 10 mcg vaginal 2XWK Estrogen Insert 1 dose vaginal 2XWK DO NOT take the morning of surgery Saccharomyces boulardii 250 mg capsule (Florastor) 500 mg PO TID mecobalamin (vitamin B12) 6 mcg PO QAM cholecalciferol (vitamin D3) 50 mcg/drop (2,000 unit/drop) oral drops 8 - 10,000 unit PO QAM calcium carbonate 500 mg PO TID B-complex with vitamin C 1 cap PO DAILY ascorbate calcium (vitamin C) 500 mg tablet 250 mg PO QAM Take morning of surgery With a small sip of water, OTHERWISE NOTHING TO EAT OR DRINK AFTER MIDNIGHT: albuterol sulfate 90 mcg/actuation aerosol inhaler 2 puff inhalation Q6H PRN shortness of breath or wheezing (use if needed; please bring with you to hospital day of surgery if possible) [place] Thyroid 60 mg tablet (thyroid (pork)) 60 mg PO QAM cyclosporine 0.09 % eye drops in a dropperette (Cequa) 1 drp ophthalmic (eye) Q12H fluticasone propionate 44 mcg/actuation HFA aerosol inhaler 1 puff inhalation BID PRN (if needed) cyclosporine 0.05 % eye drops in a dropperette (Restasis) 1 drp ophthalmic (eye) Q12H Take evening before surgery Saccharomyces boulardii 250 mg capsule (Florastor) 500 mg PO TID albuterol sulfate 90 mcg/actuation aerosol inhaler 2 puff inhalation Q6H PRN shortness of breath or wheezing (if needed) calcium carbonate 500 mg PO TID cyclosporine 0.09 % eye drops in a dropperette (Cequa) 1 drp ophthalmic (eye) Q12H fluticasone propionate 44 mcg/actuation HFA aerosol inhaler 1 puff inhalation BID PRN (if needed) cyclosporine 0.05 % eye drops in a dropperette (Restasis) 1 drp ophthalmic (eye) Q12H Other Notes If you have any questions please call us at [phone] or [phone] or [phone] or [phone]
--- NOTE | 2025-09-12 09:31 | Anesthesiology Consultation ---
Date of Service September 12, 2025 Assessment & Plan (1) Encounter for pre-operative examination: Chart Review Chart Review: Acceptable Risk for Surgery and Patient seen in Pre Admission Testing - Patient is NOT an ideal OPJ candidate- currently 23 [address] obs [address] in [address]- surgeons' office made aware (will leave to surgeon's discretion on how to proceed) Patient takes numerous supplements- per Pre Admission Report 09/09/25- patient made aware to stop most supplements 2 weeks prior to surgery- patient is declining to stop Digestive enzymes, quercetin, Antronex, Selenium, Ginko Bilob a, Drenamin, Zyban, Inositol, Neuro-Mag, Thytrophin, Rna Dose, Lv-Gb Complex . Patient was made aware that not stopping supplements as directed could increase bleeding risk and have possible reaction to anesthesia- patient voices understanding. Patient was instructed to make surgeon aware as some of the supplements she is declining to stop can increase bleeding risk. Siomara with surgeon's office was also made aware. Will leave ultimately to surgeon's discretion on how to proceed. Per PAT appt on 09/12/25, no recent illness/disease exposures, illness related symptoms, or recent illness/disease positive tests. Will leave to surgeon's discretion if preop Covid testing needed Cardio office visit 09/07/25= "... The patient is stable from a cardiovascular standpoint... excellent control of her blood pressure at home. Her cholesterol values are also well-controlled. Fortunately, there has been no recurrence of her paroxysmal atrial fibrillation. She carries diltiazem and Xarelto as a "pill in the pocket" should a paroxysm develop. She is an acceptable cardiac risk for knee replacement surgery as she demonstrates excellent functional status without cardiac symptoms..." Teaching & Discussion Pre-Anesthesia Teaching/Discussion Notes: Instructed NPO after midnight before surgery,except medications with 15 cc of water. Medication instructions provided according to the PAT guidelines. History Surgery Operation Date: 10/07/25 10:00 Proposed Procedures p Robotic Assisted Right Total Knee Arthroplasty - Bert Garcia DO Height/Weight Height: 5 ft 9 in Weight: 81.6 kg Allergies Allergy/AdvReac Type Severity Reaction Status Date / Time nitrofurantoin Allergy Severe lung injury Verified 09/07/25 15:01 cat dander Allergy Intermediate breathing Verified 09/07/25 15:01 issues corn Allergy Mild DIARRHEA Verified 09/07/25 15:01 adhesive tape Allergy Unknown Rash Verified 09/07/25 15:01 gluten Allergy Unknown GI UPSET Verified 09/07/25 15:01 latex Allergy Unknown Rash Verified 09/07/25 15:01 milk Allergy Unknown Gastrointestinal Verified 09/07/25 15:01 Upset dog dander Allergy Difficulty Verified 09/07/25 15:01 Breathing metoprolol [From Lopressor] Allergy short of Verified 09/07/25 15:01 breath per patient pneumococcal vaccine Allergy Injection Verified 09/12/25 09:22 [From Pneumovax 23] site redness (large) environmental Allergy Mild Uncoded 09/07/25 15:01 Medications Home Medications Medication Instructions Recorded Confirmed Last Taken Saccharomyces boulardii 250 mg 500 mg PO TID 10/23/21 09/07/25 07/24/22 capsule (Florastor) blue-green algae (Spirulina) 500 500 mg PO QID 12/10/21 09/07/25 07/24/22 mg tablet mecobalamin (vitamin B12) 6 mcg PO QAM 06/05/22 09/07/25 07/24/22 olopatadine 0.7 % eye drops 1 drp ophthalmic (eye) UD PRN 06/10/22 09/07/25 Unknown (Pataday Once Daily Relief) allergies tretinoin 0.1 % topical cream 1 applic topical QAM #1 g 06/10/22 09/07/25 07/24/22 biotin 1 mg capsule 1 mg PO QAM 07/17/22 09/07/25 07/24/22 digestive enzymes 1 cap PO TID 07/17/22 09/07/25 07/24/22 selenium 200 mcg capsule 100 mcg PO TID 07/17/22 09/07/25 07/24/22 cholecalciferol (vitamin D3) 50 8 - 10,000 unit PO QAM 05/14/23 09/07/25 Unknown mcg/drop (2,000 unit/drop) oral drops mupirocin 2 % topical ointment 1 applic topical BID PRN nose #15 10/03/23 09/07/25 Unknown grams Spacer for Inhaler #1 ea 10/30/23 09/07/25 Unknown omega 4-tsv-hus-fish oil 100 1 cap PO DAILY 11/17/23 09/07/25 Unknown mg-160 mg-1,000 mg capsule (Fish Oil) Gingo Biloba 1 dose PO DAILY 05/17/24 09/07/25 Unknown blood-glucose meter (OneTouch #1 ea 06/11/24 09/07/25 Unknown Ultra2 Meter) lancets 30 gauge (OneTouch #100 ea 06/11/24 09/07/25 Unknown UltraSoft 2 Lancet) blood sugar diagnostic (OneTouch #50 ea 06/14/24 09/07/25 Unknown Ultra Test strips) albuterol sulfate 90 mcg/actuation 2 puff inhalation Q6H PRN 11/08/24 09/07/25 Unknown aerosol inhaler shortness of breath or wheezing #6.7 grams calcium carbonate 500 mg PO TID 11/18/24 09/07/25 Unknown quercetin 500 mg capsule 500 mg PO BID 12/07/24 09/07/25 Unknown [place] Thyroid 60 mg tablet 60 mg PO QAM #90 tabs 01/03/25 09/07/25 Unknown (thyroid (pork)) estradiol 10 mcg vaginal tablet 10 mcg vaginal 2XWK #24 tabs 01/28/25 09/07/25 Unknown (Vagifem) Antronex 1 dose PO QID 06/07/25 09/07/25 Unknown B-complex with vitamin C 1 cap PO DAILY 06/07/25 09/07/25 Unknown ascorbate calcium (vitamin C) 500 250 mg PO QAM 06/07/25 09/07/25 Unknown mg tablet cyclosporine 0.09 % eye drops in a 1 drp ophthalmic (eye) Q12H 06/07/25 09/07/25 Unknown dropperette (Cequa) fluticasone propionate 44 1 puff inhalation BID PRN 06/07/25 09/07/25 Unknown mcg/actuation HFA aerosol inhaler minoxidil 2.5 mg tablet 2.5 mg PO DAILY 06/07/25 09/07/25 Unknown Basis Health 1 dose PO DAILY 09/05/25 09/07/25 Unknown Cardiotrophin 1 dose PO DAILY 09/05/25 09/07/25 Unknown Cataplex B12 1 dose PO DAILY 09/05/25 09/07/25 Unknown Dermatrophin 1 dose PO DAILY 09/05/25 09/07/25 Unknown Drenamin 3 tab PO TID 09/05/25 09/07/25 Unknown Drenatrophin 1 tab PO TID 09/05/25 09/07/25 Unknown Estrogen Insert 1 dose vaginal 2XWK 09/05/25 09/07/25 Unknown Lv-Gb Complex 1 dose PO DAILY 09/05/25 09/07/25 Unknown Neuro-Mag 1 dose PO DAILY 09/05/25 09/07/25 Unknown Pancreatrophin 1 dose PO DAILY 09/05/25 09/07/25 Unknown Panctrevan 2 cap PO BID 09/05/25 09/07/25 Unknown Pqq 1 cap PO BID 09/05/25 09/07/25 Unknown Rna Dose 1 dose PO DAILY 09/05/25 09/07/25 Unknown Thytrophin 4 tab PO TID 09/05/25 09/07/25 Unknown Tribulus 1 dose PO DAILY 09/05/25 09/07/25 Unknown Tuna [place] 3 Oil 1 cap PO DAILY 09/05/25 09/07/25 Unknown Zypan 2 tab PO TIDM 09/05/25 09/07/25 Unknown acetylcarnitine HCl 250 mg capsule 250 mg PO DAILY 09/05/25 09/07/25 Unknown bilberry fruit 1,000 mg capsule 1,000 mg PO BID 09/05/25 09/07/25 Unknown celecoxib 100 mg capsule (Celebrex) 100 mg PO QAM 09/05/25 09/07/25 Unknown celecoxib 200 mg capsule (Celebrex) 200 mg PO BID PRN Other 09/05/25 09/07/25 Unknown choline 250 mg tablet 250 mg PO BID 09/05/25 09/07/25 Unknown cyclosporine 0.05 % eye drops in a 1 drp ophthalmic (eye) Q12H 09/05/25 09/07/25 Unknown dropperette (Restasis) digestive enzymes 1 tab PO DAILY 09/05/25 09/07/25 Unknown inositol 250 mg tablet 250 mg PO UD 09/05/25 09/07/25 Unknown diltiazem HCl 180 mg 180 mg PO DAILY PRN atrial 09/07/25 09/07/25 Unknown capsule,extended release 24 hr fibrillation #30 caps rivaroxaban 20 mg tablet (Xarelto) 20 mg PO DAILY PRN atrial 09/07/25 09/07/25 Unknown fibrillation #30 tabs Past Medical History Medical History Allergic rhinitis Gets allergy injections routinely (on maintenance) Ascending aorta dilatation Mildly dilated ascending aorta at 4cm per 2023 ECHO Atrial fibrillation with RVR was caused by taking goldenseal supplement > no further issues no recurrence per cardio records (09/07/25) "carries diltiazem and Xarelto as a "pill in the pocket" should a paroxysm develop" Cystocele with first degree uterine prolapse Pessary in place Dermatochalasis Gluten enteropathy Yehuda's thyroiditis takes armour thyroid History of asthma allergy induced, inh prn stable at this time History of basal cell carcinoma removed History of cold sores Left hip pain chronic Positive SAMIA (antinuclear antibody) 09/2023 1:40 Pre-diabetes diet controlled Prolapse of female pelvic organs Rosacea hx Severe obstructive sleep apnea cpap SNHL (sensorineural hearing loss) Venous insufficiency of both lower extremities Exercise / Class Metabolic Activity II 4-5 Yardwork/Stairs/Walk up hill (one flight of stairs - no chest pain or SOB- exercises 3x weekly ) Past Family History Family History Father Alcoholism Brain tumor Environmental allergies Hypertension Mother Dementia Skin cancer Family history of deafness and hearing loss Mitral valve prolapse Other No family history of bleeding disorder Denies family history of Ovarian cancer Prostate cancer Myocardial infarction Breast cancer Colorectal cancer Past Surgical History Surgical History History of appendectomy History of blepharoplasty History of nasal septoplasty septoplasty on 07/25/22 - Dr. Cote History of oral surgery tooth extraction; has dental implant History of tonsillectomy Hx of colonoscopy Status post excisional biopsy skin cancer-2013 Past Anesthesia History No Hx of Anesthesia Complications and No Family Hx of Anesthesia Complications History of PONV No Hx of PONV and Hx of Motion Sickness (mild) Social History Smoking Status: Never smoker Do You Dip or Chew Tobacco: No Hx Alcohol Use: No Hx Substance Use: No substance use type: does not use Review of Systems - Rare reflux- relieved with sodium bicarbonate Patient denies chest pain, shortness of breath, dyspnea on exertion, cough, wheezing, palpitations. No hx of seizures, stroke, NV. No hx of blood clots or blood transfusions Physical Exam Vital Signs VITALS BP 151/69 P 73 TEMP 97.9 SP02 94% RESP 16 Constitutional no acute distress ENMT Mouth: no TMJ clicking Thyromental Distance: > or= 3.5 Finger Breadths (3.5) Mallampati Class: III Permanent implant top left molar Neck neck extension not limited Respiratory normal respiratory effort; no respiratory distress Auscultation: lungs clear to auscultation bilaterally; no wheezes Cardiovascular Rate/Rhythm: regular rate and regular rhythm Heart Sounds: no murmur Vessels: no carotid bruit Musculoskeletal Spine: no pain with cervical ROM (per patient- to use caution if neck extension needed) Extremities: extremities normal to inspection Psychiatric Orientation: alert Lab Results Anesthesia Preop Results Results Anesthesia Widget: WBC 8.42 K/ul (4.8-10.8) 09/12/25 Hgb 14.7 g/dL (12.0-16.0) 09/12/25 Hct 44.7 % (37.0-47.0) 09/12/25 Plt 245 K/uL (130-400) 09/12/25 Na 141 mmol/L (136-145) 09/12/25 K 3.7 mmol/L (3.5-5.1) 09/12/25 Cl 104 mmol/L (98-107) 09/12/25 CO2 30 mmol/L (21-32) 09/12/25 BUN 20 mg/dl (6-23) 09/12/25 Creat 0.74 mg/dl (0.6-1.2) 09/12/25 Glucose Level 109 mg/dl (70-99(Fasting)) H 09/12/25 PT 11.0 Seconds (9.0-12.0) 09/12/25 PTT 26 Seconds (21-31) 09/12/25 INR 1.0 (0.9-1.1) 09/12/25 HA1c 5.8 % (4.5-5.6) H 09/12/25 Blood Type O Positive 09/12/25 Antibody Screen NEGATIVE 09/12/25 Testing Electrocardiogram Date: 09/12/25 Findings: + NSR @ (68bpm) Possible left atrial enlargement Left anterior fascicular block Nonspecific T wave abnormality When compared to EKG from Oct 24, 2021- SR has replaced atrial fibrillation, vent rate has decreased by 33bpm per cardio Chest X-Ray Date: 09/12/25 Findings: + NAD FINDINGS: Stable moderate cardiomegaly without pulmonary vascular congestion. Stable hyperexpanded lungs. No consolidation or pleural effusion seen. Stable pectus. Echocardiogram Date: 08/23/24 EF: 65-70% LV Function: normal RWMA: + none ((cannot exclude wall motion abnormalities involving the apical views)) Other Findings: + LVH (mild/concentric ); no diastolic dysfunction Mild MR. Mild TR Mildly dilated ascending aorta at 4cm Normal estimated RVSP Very small pericardial effusion without echocardiographic evidence of tamponade physiology Technically difficult study with poor image quality involving the apical views Stress Test Date: 07/10/20 Type: exercise (ECHO) Negative exercise stress ECHO and EKG for ischemia at MPHR 94%. 7 METS achieved Patient complained of no exercise induced chest pain Baseline ECHO notes normal LV function
--- NOTE | 2025-10-05 07:38 | History & Physical Report ---
Date of Service October 05, 2025 Assessment & Plan (1) Right knee DJD: We will proceed with a right total knee arthroplasty. Postoperatively, she will be started on aspirin for DVT prophylaxis and kept overnight in the hospital for postop medical management. She plans to use energy physical therapy after di schargina. History of Present Illness Chief Complaint: Osteoarthritis of the right knee. Primary Care Provider: Bert Mayer DO Gay is a pleasant 75-year-old female who has been dealing with chronic increasing arthritis of her right knee. She is being seeing Dr. Gary. She has had multiple injections of her knee. The injections are no longer helping. X-rays and clinical exam have been consistent with lateral compartment arthritis. After failing conservative treatment, she has elected to proceed with a right total knee arthroplasty. Allergies Allergy/AdvReac Type Severity Reaction Status Date / Time nitrofurantoin Allergy Severe lung injury Verified 09/07/25 15:01 cat dander Allergy Intermediate breathing Verified 09/07/25 15:01 issues corn Allergy Mild DIARRHEA Verified 09/07/25 15:01 adhesive tape Allergy Unknown Rash Verified 09/07/25 15:01 gluten Allergy Unknown GI UPSET Verified 09/07/25 15:01 latex Allergy Unknown Rash Verified 09/07/25 15:01 milk Allergy Unknown Gastrointestinal Verified 09/07/25 15:01 Upset dog dander Allergy Difficulty Verified 09/07/25 15:01 Breathing metoprolol [From Lopressor] Allergy short of Verified 09/07/25 15:01 breath per patient pneumococcal vaccine Allergy Injection Verified 09/12/25 09:22 [From Pneumovax 23] site redness (large) environmental Allergy Mild Uncoded 09/07/25 15:01 Home Medications Medication Instructions Recorded Confirmed Type Saccharomyces boulardii 250 mg 500 mg PO TID 10/23/21 09/07/25 History capsule (Florastor) blue-green algae (Spirulina) 500 500 mg PO QID 12/10/21 09/07/25 History mg tablet mecobalamin (vitamin B12) 6 mcg PO QAM 06/05/22 09/07/25 History olopatadine 0.7 % eye drops 1 drp ophthalmic (eye) UD PRN 06/10/22 09/07/25 History (Pataday Once Daily Relief) allergies tretinoin 0.1 % topical cream 1 applic topical QAM #1 g 06/10/22 09/07/25 History biotin 1 mg capsule 1 mg PO QAM 07/17/22 09/07/25 History digestive enzymes 1 cap PO TID 07/17/22 09/07/25 History selenium 200 mcg capsule 100 mcg PO TID 07/17/22 09/07/25 History cholecalciferol (vitamin D3) 50 8 - 10,000 unit PO QAM 05/14/23 09/07/25 History mcg/drop (2,000 unit/drop) oral drops mupirocin 2 % topical ointment 1 applic topical BID PRN nose #15 10/03/23 09/07/25 Rx grams Spacer for Inhaler #1 ea 10/30/23 09/07/25 Rx omega 1-ris-ivy-fish oil 100 1 cap PO DAILY 11/17/23 09/07/25 History mg-160 mg-1,000 mg capsule (Fish Oil) Gingo Biloba 1 dose PO DAILY 05/17/24 09/07/25 History blood-glucose meter (OneTouch #1 ea 06/11/24 09/07/25 Rx Ultra2 Meter) lancets 30 gauge (OneTouch #100 ea 06/11/24 09/07/25 Rx UltraSoft 2 Lancet) blood sugar diagnostic (OneTouch #50 ea 06/14/24 09/07/25 Rx Ultra Test strips) albuterol sulfate 90 mcg/actuation 2 puff inhalation Q6H PRN 11/08/24 09/07/25 Rx aerosol inhaler shortness of breath or wheezing #6.7 grams calcium carbonate 500 mg PO TID 11/18/24 09/07/25 History quercetin 500 mg capsule 500 mg PO BID 12/07/24 09/07/25 History Crossett Thyroid 60 mg tablet 60 mg PO QAM #90 tabs 01/03/25 09/07/25 Rx (thyroid (pork)) Antronex 1 dose PO QID 06/07/25 09/07/25 History B-complex with vitamin C 1 cap PO DAILY 06/07/25 09/07/25 History ascorbate calcium (vitamin C) 500 250 mg PO QAM 06/07/25 09/07/25 History mg tablet cyclosporine 0.09 % eye drops in a 1 drp ophthalmic (eye) Q12H 06/07/25 09/07/25 History dropperette (Cequa) fluticasone propionate 44 1 puff inhalation BID PRN 06/07/25 09/07/25 History mcg/actuation HFA aerosol inhaler minoxidil 2.5 mg tablet 2.5 mg PO DAILY 06/07/25 09/07/25 History Basis Health 1 dose PO DAILY 09/05/25 09/07/25 History Cardiotrophin 1 dose PO DAILY 09/05/25 09/07/25 History Cataplex B12 1 dose PO DAILY 09/05/25 09/07/25 History Dermatrophin 1 dose PO DAILY 09/05/25 09/07/25 History Drenamin 3 tab PO TID 09/05/25 09/07/25 History Drenatrophin 1 tab PO TID 09/05/25 09/07/25 History Estrogen Insert 1 dose vaginal 2XWK 09/05/25 09/07/25 History Lv-Gb Complex 1 dose PO DAILY 09/05/25 09/07/25 History Neuro-Mag 1 dose PO DAILY 09/05/25 09/07/25 History Pancreatrophin 1 dose PO DAILY 09/05/25 09/07/25 History Panctrevan 2 cap PO BID 09/05/25 09/07/25 History Pqq 1 cap PO BID 09/05/25 09/07/25 History Rna Dose 1 dose PO DAILY 09/05/25 09/07/25 History Thytrophin 4 tab PO TID 09/05/25 09/07/25 History Tribulus 1 dose PO DAILY 09/05/25 09/07/25 History Tuna Bradley 3 Oil 1 cap PO DAILY 09/05/25 09/07/25 History Zypan 2 tab PO TIDM 09/05/25 09/07/25 History acetylcarnitine HCl 250 mg capsule 250 mg PO DAILY 09/05/25 09/07/25 History bilberry fruit 1,000 mg capsule 1,000 mg PO BID 09/05/25 09/07/25 History celecoxib 100 mg capsule (Celebrex) 100 mg PO QAM 09/05/25 09/07/25 History celecoxib 200 mg capsule (Celebrex) 200 mg PO BID PRN Other 09/05/25 09/07/25 History choline 250 mg tablet 250 mg PO BID 09/05/25 09/07/25 History cyclosporine 0.05 % eye drops in a 1 drp ophthalmic (eye) Q12H 09/05/25 09/07/25 History dropperette (Restasis) digestive enzymes 1 tab PO DAILY 09/05/25 09/07/25 History inositol 250 mg tablet 250 mg PO UD 09/05/25 09/07/25 History diltiazem HCl 180 mg 180 mg PO DAILY PRN atrial 09/07/25 09/07/25 Rx capsule,extended release 24 hr fibrillation #30 caps rivaroxaban 20 mg tablet (Xarelto) 20 mg PO DAILY PRN atrial 09/07/25 09/07/25 Rx fibrillation #30 tabs estradiol 10 mcg vaginal tablet 10 mcg vaginal 2XWK #24 tabs 09/30/25 Rx (Vagifem) Past Med/Surg History Problem List Encounter for pre-operative examination ASCUS of cervix with negative high risk HPV Colon cancer screening 10/2022 Neg Cologuard, Repeat 3 yrs Right knee DJD Right knee meniscal tear History of knee problem currently wearing brace on rt knee to "keep it stable" Mitral regurgitation f/u kamla quezada Mild per 07/2024 ECHO Dysplastic nevus Tubular adenoma of colon hx Tinnitus, bilateral Sensorineural hearing loss, bilateral Excessive cerumen in left ear canal Menopausal and postmenopausal disorder Cystocele with prolapse Moderate persistent asthma Memory changes Pre-diabetes Paroxysmal atrial fibrillation Nocturnal hypoxemia Severe obstructive sleep apnea Treated with CPAP Ascending aorta dilatation Hypothyroidism (Acute) Medical History Ascending aorta dilatation Mildly dilated ascending aorta at 4cm per 2023 ECHO Severe obstructive sleep apnea cpap Pre-diabetes diet controlled Cystocele with first degree uterine prolapse Pessary in place Positive SAMIA (antinuclear antibody) 09/2023 1:40 History of asthma allergy induced, inh prn stable at this time Atrial fibrillation with RVR was caused by taking goldenseal supplement > no further issues no recurrence per cardio records (09/07/25) "carries diltiazem and Xarelto as a "pill in the pocket" should a paroxysm develop" Venous insufficiency of both lower extremities Prolapse of female pelvic organs History of basal cell carcinoma removed History of cold sores Allergic rhinitis Gets allergy injections routinely (on maintenance) Dermatochalasis Gluten enteropathy Yehuda's thyroiditis takes armour thyroid Left hip pain chronic Rosacea hx SNHL (sensorineural hearing loss) Surgical History History of nasal septoplasty septoplasty on 07/25/22 - Dr. Cote Hx of colonoscopy History of appendectomy History of tonsillectomy History of oral surgery tooth extraction; has dental implant Status post excisional biopsy skin cancer-2013 History of blepharoplasty Family History Father Alcoholism Brain tumor Environmental allergies Hypertension Mother Dementia Skin cancer Family history of deafness and hearing loss Mitral valve prolapse Other No family history of bleeding disorder Denies family history of Ovarian cancer Prostate cancer Myocardial infarction Breast cancer Colorectal cancer Social History Smoking Status: Never smoker Second Hand Exposure: No; Do You Dip or Chew Tobacco: No; Hx Alcohol Use: No Hx Substance Use: No Preferred Language: Belarusian Communication Ability: Effective Visual Impairment: Limited Hearing Ability: Normal 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: No Beliefs That Will Affect Care: None marital status: marital status details: x 2 Current Living Situation: Alone current occupational status: retired 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 Physical Exam On physical exam of the right knee, she has a slight valgus Forni. Tenderness palpation of the distal lateral femoral condyle and over the lateral joint line.. Constitutional WD/WN, vitals as above Eyes PERRL, conjunctivae normal, anicteric sclerae ENMT external ear and nose normal, oropharynx normal Neck trachea midline, no thyromegaly Respiratory normal respiratory effort Cardiovascular RRR, no murmur, no edema Gastrointestinal (Abdomen) normal bowel sounds, soft, nontender, no hepatosplenomegaly Psychiatric A+Ox3, euthymic affect Results & Data Results & Data Laboratory Results . Diagnostic Findings . PG Care Time/CCT Total # of Minutes Spent Total Time Spent with Patient: Total time spent is greater than 50% in coordination of care (as documented) at patient's floor/unit and/or counseling patient: Coding Level of Care Code None Diagnoses Right knee DJD M17.11
[2025-10-07] MEDS: FAMOTIDINE 20 MG TAB PO SCH (06:13)
[2025-10-07] MEDS: GABAPENTIN 300 MG CAP PO SCH (06:13)
[2025-10-07] MEDS: ACETAMINOPHEN 500 MG TAB PO SCH ×2 (06:13→12:52)
[2025-10-07] MEDS: LR 500ML BOLUS, THEN 15ML/HR IV SCH (06:14)
[2025-10-07] MEDS: LR 60ML/HR IV SCH (06:14)
[2025-10-07] MEDS: dexAMETHasone**PF** 10 MG/ML VIAL IV SCH (06:14)
--- NOTE | 2025-10-07 06:23 | History & Physical Bridge Note ---
Date of Service October 07, 2025 History & Physical Bridge Note I have examined the patient, reviewed the History & Physical and in the interval since the performance of the History & Physical I have noted the following changes of clinical significance: no changes noted
[2025-10-07] MEDS ORDERED: PROPOFOL IV EMULSION 10 MG/ML 100 ML VIAL IV ONE (06:24)
[2025-10-07] MEDS ORDERED: LIDOCAINE 2% 2 ML VIAL/AMP(20MG/ML) INFIL ONE (06:29)
[2025-10-07] MEDS ORDERED: MIDAZOLAM HCL 1 MG/ML 2ML VIAL ONE (06:29)
[2025-10-07] MEDS ORDERED: BUPIVACAINE 0.5 % 5 MG/1 ML PF 10ML VIAL ONE (06:31)
[2025-10-07] MEDS ORDERED: BUPIVACAINE 0.25% PF 30 ML VIAL ONE (06:31)
[2025-10-07] MEDS ORDERED: DexMEDEtomidine HCL IV 100 MCG/ML VIAL IV ONE (06:32)
[2025-10-07] MEDS: TRANEXAMIC ACID 1,000 MG **IV Pre-op IV SCH (06:46)
[2025-10-07] MEDS ORDERED: ATROPINE SULFATE 0.1 MG/ML 10ML SYR IV PRN (06:57)
[2025-10-07] MEDS ORDERED: ONDANSETRON INJ 2 MG/ML 2 ML VIAL IV PRN ×2 (06:57→10:39)
[2025-10-07] MEDS: ROPIV 0.5% 246mg, Ketorolac 30mg, EPINEPHrine 0.5mg in NSS INFIL SCH (07:38)
--- NOTE | 2025-10-07 08:05 | Operative Report ---
PG Post Operative Report Pre & Post Diagnosis Operation Date: 10/07/25 07:00 Pre-Op Diagnosis: Right Knee Degenerative Joint Disease Post-Op Diagnosis: Right Knee Degenerative Joint Disease I identified the patient and participated in the time-out.: Yes Procedure Operation Date: 10/07/25 07:00 Actual Procedures p Robotic Assisted Right Total Knee Arthroplasty(Right) - Bert Garcia DO Surgeon Bert Garcia DO House Carpenter Natanael Medrano PA-C Estimated Blood Loss 30 Findings Consistent with Post-Op Diagnosis Specimens Right femoral and tibial bone Description of Procedure Implants used: I used a Kasandra Persona total knee arthroplasty system with a size 10 PS narrow femur, E tibia, 32 patella, and a size 10 CPS polyethylene bearing. All components were press-fit in place. Deidra arrived [facility] for the above procedure. She was seen in the preoperative holding area and the operative extremity was identified and signed. She was given a preoperative antibiotic, TXA, a spinal anesthetic and an adductor nerve block. She was taken back to the operating room and laid on the table in supine position. She was given basic sedation. The operative knee was then prepped and draped in sterile fashion. A timeout was done, and the patient and the operative extremity was properly identified. A midline incision was made directly over the patella. Dissection was taken down to the extensor mechanism. A medial parapatellar arthrotomy was used. The medial retinaculum was released and the fat pad was mostly excised. The knee was flexed and the ACL, PCL, and meniscus were removed. The alignment of the knee replacement was assisted with a Qwbcg robotic knee. The femoral array was pinned in the distal femur and the tibial array was pinned using a percutaneous technique in the upper shaft of the tibia. The robot was appropriately calibrated and the structure of the knee was mapped out. The components were then manipulated on the screen to account for any malalignment and to assist in gap balancing. Once I was happy with the placement of the components on the screen, a distal femoral cutting guide was brought in place. The distal femur was then resected. The femur measured to be a size 10. A 4-in-1 cutting block was then put into place by the robot and 2 peg holes were drilled. The 4-in-1 cutting block was then impacted into place and anterior, posterior, and chamfer cuts were made. The cutting block was then brought down to the tibia and pinned into place. The proximal tibia was then resected. The posterior aspect of the knee was then opened up and any additional meniscus fragments and osteophytes were removed. The tibia measured to be a size E. The tibial plate was then placed in the appropriate rotation and the tibia was drilled and punched. Trial components were then placed. The patella was then everted and 9 mm was resected off the posterior aspect of the patella. The patella measured to be a size 32. 3 peg holes were then drilled. A trial patella was placed. A size 10 CPS polyethylene insert was then trialed. The knee was brought through a full range of motion and felt to be stable. Trial components were then removed. The surrounding soft tissues were injected with 100 cc of an orthopedic pain control cocktail. All components were then press-fit into place. The final polyethylene insert was then snapped into place. The tourniquet was deflated. Hemostasis was obtained. An Irrisept lavage was then done for 3 minutes. The joint was then irrigated with normal saline solution. The medial parapatellar arthrotomy was then closed with #1 Vicryl suture. The skin was closed with 2-0 Vicryl, 3-0V lock suture, and S tryker Zipline. A soft compressive dressing was placed. She was then transferred to a hospital bed and taken to the postanesthesia care unit in stable condition. She tolerated the procedure well. Natanael Medrano PA-C, was present for the entire procedure. He was critical for patient positioning, prepping, draping, retraction exposure, wound closure and application of sterile dressing. I attest to the content of the Intraoperative Record and any orders documented therein. Any exceptions are noted below.
--- NOTE | 2025-10-07 09:13 | XRay Report ---
XR knee RT 1 or 2V routine CLINICAL HISTORY: Postoperative evaluation. COMPARISON: Right knee radiographs July 12, 2025. FINDINGS: Alignment of the total right knee arthroplasty is anatomic. There is no periprosthetic fra cture or unexpected radiopaque foreign body. IMPRESSION: Expected findings following total right knee arthroplasty. ACT 112: Negative or not required by law. Electronically signed by: Lino George M.D. 10/07/2025 9:12 AM
[2025-10-07] MEDS ORDERED: METOCLOPRAMIDE HCL INJ 5 MG/ML 2 ML VIAL IV PRN (10:39)
[2025-10-07] MEDS ORDERED: HYDROmorphone INJ 0.5 MG/0.5 ML SYR IV PRN (10:39)
[2025-10-07] MEDS ORDERED: NALOXONE HCL 0.4 MG/1 ML VIAL/CARP IV PRN (10:39)
[2025-10-07] MEDS ORDERED: MAGNESIUM HYDROXIDE SUSP 30 ML UDC PO PRN (10:39)
[2025-10-07] MEDS: SODIUM CHLORIDE 0.9% 1,000 ML IV SCH (11:10)
[2025-10-07] MEDS: KETOROLAC TROMETHAMINE 15 MG/ML VIAL IV SCH (11:12)
[2025-10-07] MEDS: ASPIRIN 81 MG ECTAB PO SCH (12:45)
[2025-10-07] MEDS: DOCUSATE SODIUM 100 MG CAP PO SCH (12:45)
[2025-10-07] MEDS: MULTIVITAMIN TAB PO SCH (12:46)
--- NOTE | 2025-10-07 13:45 | Anesthesiology Progress Note ---
Date of Service October 07, 2025 Anesthesia Post Procedure Vital Signs Vital Signs: Temp Pulse Pulse Resp BP Pulse Ox O2 Del Method 10/07/25 12:40 36.6 C 88 18 130/71 95 Room Air 10/07/25 11:42 36.7 C 88 18 144/75 H 88 L Room Air 10/07/25 11:10 36.5 C 83 16 135/71 94 Room Air 10/07/25 10:40 36.6 C 85 16 132/75 94 Room Air 10/07/25 10:00 83 18 136/66 94 Room Air 10/07/25 09:45 82 18 144/62 H 93 Room Air 10/07/25 09:30 78 20 134/63 94 Room Air 10/07/25 09:15 79 18 135/67 96 Room Air 10/07/25 09:00 36.4 C L 77 20 140/71 96 Room Air 10/07/25 08:50 75 22 125/63 97 Room Air 10/07/25 08:40 79 18 123/58 L 95 Room Air 10/07/25 08:30 36.6 C 81 22 119/59 L 94 Room Air 10/07/25 05:40 36.9 C 77 18 179/102 H 95 Room Air Transfer of Care Handoff Completed per policy Notes Mental Status: alert / awake / arousable and participated in evaluation Patient Amnestic to Procedure: Yes Nausea / Vomiting: adequately controlled Pain: adequately controlled Airway Patency, RR, SpO2: stable & adequate BP & HR: stable & adequate Hydration State: stable & adequate Neuraxial Anesthesia: was administered and sensory block is resolving Anesthetic Complications: no major complications apparent and Pt Satisfied with anesthetic care
[2025-10-07] MEDS: SENNA 8.6 MG TAB PO SCH (21:26)
[2025-10-07 22:47] VITALS: RESP 16
[2025-10-08] MEDS: ARMOUR THYROID 30 MG TAB PO SCH (05:09)
[2025-10-08 05:47] VITALS: TEMP 98.1
[2025-10-08 07:14] VITALS: BP 132/78; PULSE 71; O2SAT 95
--- NOTE | 2025-10-08 07:28 | Orthopedic Progress Note ---
Date of Service October 08, 2025 Assessment & Plan (1) Status post total right knee replacement: Overall she is doing fairly well with regards to the knee. Her vital signs are stable. I do want to get an ultrasound of her right lower extremity. She will be seen by physical therapy today for ambulation and range of motion exercises. The nursing staff can change her dressing after physical therapy. If the ultrasound is negative for DVT she can be discharged to home today. She is on Xarelto for DVT prophylaxis. If the ultrasound is positive then we will likely order a hospitalist consult. Diane Gay was seen and examined at bedside this morning. Overall she is doing fairly well. She is not have any pain in the right knee. Her biggest complaint is pain in her right calf. She states she has cramping and pain in the central aspect of her calf. No other complaints.. Review of Systems All systems reviewed & are unremarkable except as noted in HPI & below. Physical Exam On physical exam of the right knee, the dressing is clean and dry. Her leg is out in full extension. She has active dorsiflexion and plantarflexion of her right ankle.. Results & Data Results & Data Laboratory Results . Diagnostic Findings Postoperative x-rays of the right knee show the prosthesis to be in anatomic alignment without any evidence of fracture complication, or loosening.. PG Care Time/CCT Total # of Minutes Spent Total Time Spent with Patient: Total time spent is greater than 50% in coordination of care (as documented) at patient's floor/unit and/or counseling patient: Coding Level of Care Code 89270 Post Operative Follow-Up Diagnoses Status post total right knee replacement Z96.651
--- NOTE | 2025-10-08 08:21 | Ultrasound Report ---
Clinical History: Pain Technique: Venous ultrasound evaluation was performed utilizing grayscale, color Doppler and wave form evaluation. Images were also obtained with and without compression Findings: The right common femoral, superficial femoral, popliteal, and visualized calf veins demonstrate normal anechoic lumens with full compressibility. Normal flow is seen on color Doppler images. Expected waveforms were produced with augmentation maneuvers Impression: No evidence of right leg deep venous thrombosis Electronically signed by Stevie Mcclendon 10-08-2025 08:21 AM
== END 2025-10-08 13:10 | disposition home or self-care (01) ==
LOC: PACUINP 05:25 → ASU 05:25 → 3N 10:36